=== PATIENT | male | born 1935 | race Caucasian/White ===

== ENCOUNTER 2019-06-28 23:00 | Outpatient (CLI) | payer MEDICARE, OTHER | END 2019-06-28 23:59 | disposition critical access hospital (66) | LOC: EMS 23:00 | PROVIDERS: ATTEND Surgery | DX: R06.02 Shortness of breath (principal); R07.89 Other chest pain | CPT/HCPCS: A0425; A0427 ==

== ENCOUNTER 2019-06-28 23:30 | Observation (INO) | payer MEDICARE, OTHER ==
[2019-06-29] MEDS ORDERED: ASPIRIN CHEW 81 MG TABLET PO STA
[2019-06-29 00:18] LABS: BASOPHILS # (AUTO) 0.1 10^3/uL (0.0-0.1); BASOPHILS % (AUTO) 1.2 %; EOSINOPHILS # (AUTO) 0.2 10^3/uL (0.0-0.7); EOSINOPHILS % (AUTO) 2.6 %; HGB - HEMOGLOBIN 11.7 g/dL (14.0-18.0); LYMPHOCYTES # (AUTO) 1.1 10^3/uL (1.5-3.5); LYMPHOCYTES % (AUTO) 14.4 %; MEAN CORPUSCULAR HEMOGLOBIN 30.2 pg (27.0-31.0); MEAN CORPUSCULAR VOLUME 94.3 fL (80.0-94.0); MEAN PLATELET VOLUME 10.6 fL (7.4-11.4); MONOCYTES # (AUTO) 0.7 10^3/uL (0.0-1.0); MONOCYTES % (AUTO) 8.6 %; NEUTROPHILS # (AUTO) 5.6 10^3/uL (1.5-6.6); NEUTROPHILS % (AUTO) 72.9 %; PLT - PLATELET COUNT 222 10^3/uL (130-450); RED BLOOD COUNT 3.88 10^6/uL (4.70-6.10); RED CELL DISTRIBUTION WIDTH 17.6 % (12.0-15.0); WHITE BLOOD COUNT 7.7 x10^3/uL (4.8-10.8)
[2019-06-29 00:24] LABS: INR 1.6 (0.8-1.2)
[2019-06-29 00:30] LABS: ALBUMIN 3.6 g/dL (3.2-5.5); BILIRUBIN,TOTAL 1.6 mg/dL (0.2-1.0); CALCIUM 9.4 mg/dL (8.5-10.3); CREATININE 1.1 mg/dL (0.6-1.2); TOTAL PROTEIN 7.3 g/dL (6.7-8.2)
[2019-06-29 00:31] LABS: PARTIAL THROMBOPLASTIN TIME 35.8 secs (24.9-33.3)
--- NOTE | 2019-06-29 00:43 | XRAY Report ---
Reason: Chest pain, SOA Procedure Date: 06/29/2019 Accession Number: [id number] / [id number] Procedure: XR - Chest 1 View X-Ray CPT Code: 61649 Final Report FULL RESULT: EXAM: CHEST RADIOGRAPHY EXAM DATE: 06/29/2019 12:35 AM. CLINICAL HISTORY: Chest pain, shortness of air. COMPARISON: None. TECHNIQUE: 1 view. FINDINGS: Lungs/Pleura: Diffuse mild interstitial opacities. No large effusion. No gross pneumothorax. Mediastinum: Mild cardiomegaly. No mediastinal shift. Other: Post median sternotomy. IMPRESSION: Mild CHF. RADIA
--- NOTE | 2019-06-29 01:59 | ED Physician Documentation ---
PD HPI CHEST PAIN - Stated complaint Stated Complaint: SOA/CP - Chief complaint Chief Complaint: Cardiac PD PAST MEDICAL HISTORY - Allergies Allergies/Adverse Reactions: Allergies Allergy/AdvReac Type Severity Reaction Status Date / Time clopidogrel [From Plavix] Allergy Rash Verified 06/28/19 23:49 sulfur dioxide Allergy Unknown Verified 06/28/19 23:49 Results - Vitals Vitals: Vital Signs - 24 hr 06/28/19 06/29/19 23:45 01:53 Temperature 36.8 C Heart Rate 89 88 Respiratory 18 25 H Rate Blood Pressure 152/89 H 120/75 O2 Saturation 98 96 Oxygen O2 Source Room air - Labs Labs: Laboratory Tests 06/28/19 06/28/19 06/29/19 00:10 00:10 00:10 WBC 7.7 RBC 3.88 L Hgb 11.7 L Hct 36.6 L MCV 94.3 H MCH 30.2 MCHC 32.0 RDW 17.6 H Plt Count 222 MPV 10.6 Neut # (Auto) 5.6 Lymph # (Auto) 1.1 L [place] # (Auto) 0.7 Eos # (Auto) 0.2 Baso # (Auto) 0.1 Absolute Nucleated RBC 0.00 Nucleated RBC % 0.0 PT INR APTT Sodium 138 Potassium 4.1 Chloride 109 Carbon Dioxide 20 L Anion Gap 9.0 BUN 22 H Creatinine 1.1 Estimated GFR (MDRD) 64 L Glucose 184 H POC Whole Bld Glucose Calcium 9.4 Total Bilirubin 1.6 H AST 24 ALT 17 Alkaline Phosphatase 68 Troponin I High Sens 49.8 H* B-Natriuretic Peptide Total Protein 7.3 Albumin 3.6 Globulin 3.7 Albumin/Globulin Ratio 1.0 Lipase 22 06/29/19 06/29/19 06/29/19 00:10 00:10 00:17 WBC RBC Hgb Hct MCV MCH MCHC RDW Plt Count MPV Neut # (Auto) Lymph # (Auto) [place] # (Auto) Eos # (Auto) Baso # (Auto) Absolute Nucleated RBC Nucleated RBC % PT 18.0 H INR 1.6 H APTT 35.8 H Sodium Potassium Chloride Carbon Dioxide Anion Gap BUN Creatinine Estimated GFR (MDRD) Glucose POC Whole Bld Glucose 171 H Calcium Total Bilirubin AST ALT Alkaline Phosphatase Troponin I High Sens B-Natriuretic Peptide 1142 H Total Protein Albumin Globulin Albumin/Globulin Ratio Lipase
[2019-06-29] MEDS ORDERED: FUROSEMIDE 40 MG/4 ML VIAL IVP STA (02:25)
[2019-06-29] MEDS ORDERED: ACETAMINOPHEN 325 MG TABLET PO PRN (02:28)
[2019-06-29] MEDS ORDERED: SODIUM CHLORIDE FLUSH 0.9% 10 ML SYRINGE IVP PRN (02:28)
--- NOTE | 2019-06-29 03:24 | HISTORY & PHYSICAL EXAMINATION ---
Chief Complaint - Chief Complaint Chief Complaint: Dyspnea and chest pain History of Present Illness - Admitted From Admitted From:: Home - History Obtained From Records Reviewed: Yes History obtained from: Patient, Son, ER Physician - History of Present Illness HPI Comment/Other: This is a very pleasant 83-year-old male with a past medical history significant for coronary artery disease status post CABG 1987, atrial fibrillation, hemorrhagic CVA in 2010, type 2 diabetes who presents today complaining of worsening shortness of breath and chest pain over the past 3 days. He reports that he has become more dyspneic with exertion and has not been able to be as active as he normally is. He reports a nonproductive cough but denies orthopnea. He does not notice worsening lower extremity edema and he states at baseline and his legs are not edematous. He denies increased salt intake or change in diet. He did have some chest pain over the last few days as well. It is located over the right side of the chest. He states it is worse with exer tion as well as taking deep inspirations. The pain is about 4 out of 10 and is sharp in nature. It is nonradiating. The patient cannot recall if he has been told he had heart failure in the past or not. He does have a coal shooter and Luh with the [facility] system. He is in the process of moving to [place] over the next couple of days. He has followed with his coal shooter, Dr. Ritchie, but he does not recall any work-up recently including stress tests or echocardiograms. Reports no fevers, chills, nausea, vomiting, abdominal pain. In the emergency department, he was afebrile with a temperature of 36.8 C. His heart rate was 89 and he was in atrial fibrillation with occasional PVCs on telemetry. He was initially hypertensive with a blood pressure 152/89 but this has improved to 113/73 upon my evaluation. He is not tachypneic with a respiratory of 16. He is saturating 96% on room air. Initial labs were unremarkable except for an INR of 1.6 despite him not being on any anticoagulation. His initial troponin was 49.8 and his BNP was 1142. His EKG revealed atrial fibrillation with a right bundle branch block and occasional PVCs. There are no obvious ST segment changes and there is no prior EKG to compare to. He was given aspirin 325 mg and Lasix 40 mg IV In the emergency department. Medicine was then consulted for admission. I did discuss goals of care with the patient and his son, Howie. The patient would like to be DNR but is agreeable to intubation as a temporary measure. History - Past Medical History Cardiovascular: reports: Coronary artery disease, Atrial fibrillation Respiratory: reports: None Neuro: reports: CVA (Hemorrhagic in 2011) Endocrine/Autoimmune: reports: Type 2 diabetes : reports: Benign prostate hypertrophy - Past Surgical History Cardiovascular: reports: CABG - Family & Social History Family History Comment/Other: He reports his father from a myocardial infarction. Living arrangement: At home Living Situation: With spouse/s.o. Social History Notes: He lives in [place], [place] at the moment was in the process of moving to [place], [place]. He was previously employed in the [employer]. He did smoke about a pack a day for 10 years but quit in the 60s. He has not drank alcohol since the 70s. - Substance History Use: Uses substance without health or social issues: NONE Meds/Allgy - Home Medications Home Medications: Ambulatory Orders Medication Instructions Recorded Confirmed Aspirin Chewable [St Donaldo 81 mg PO DAILY 06/29/19 06/29/19 Aspirin] Atorvastatin Calcium [Lipitor] 80 mg PO DAILY 06/29/19 06/29/19 Carvedilol Phosphate [Coreg Cr] 40 mg PO DAILY 06/29/19 06/29/19 Furosemide 20 mg PO DAILY 06/29/19 06/29/19 Glimepiride [Amaryl] 1 mg PO BID 06/29/19 06/29/19 Isosorbide Mononitrate ER [Imdur] 30 mg PO DAILY 06/29/19 06/29/19 Losartan Potassium 25 mg PO DAILY 06/29/19 06/29/19 Ranolazine [Ranexa] 500 mg PO BID 06/29/19 06/29/19 Tamsulosin [Flomax] 0.4 mg PO DAILY 06/29/19 06/29/19 - Allergies Allergies/Adverse Reactions: Allergies Allergy/AdvReac Type Severity Reaction Status Date / Time clopidogrel [From Plavix] Allergy Rash Verified 06/28/19 23:49 sulfur dioxide Allergy Unknown Verified 06/28/19 23:49 Review of Systems - Constitutional Constitutional: denies: Fatigue, Fever, Chills, Weakness, Poor appetite - Cardiovascular Cariovascular: reports: Chest pain, Exertional dyspnea, Decr. exercise tolerance. denies: Palpitations, Edema, Lightheadedness - Respiratory Respiratory: reports: Cough, SOB with exertion, Pleuritic pain. denies: Sputum production, SOB at rest - Gastrointestinal Gastrointestinal: denies: Abdominal pain, Nausea, Vomiting - Genitourinary Genitourinary: denies: Dysuria, Frequency, Urgency - Musculoskeletal Musculoskeletal: denies: Muscle pain - Integumentary Integumentary: denies: Rash - Neurological Neurological: denies: General weakness, Focal weakness, Numbness - All Other Systems All Other Systems: reports: Reviewed and negative Prior Level of Functionality: He is independent with his ADLs. He ambulates with a cane at baseline. Exam - Vital Signs Reviewed Vital Signs: Yes Vital Signs: Vital Signs x48h Temp Pulse Resp BP Pulse Ox 06/29/19 03:04 99 16 113/73 96 06/29/19 01:53 88 25 H 120/75 96 06/28/19 23:45 36.8 C 89 18 152/89 H 98 - Physical Exam General Appearance: positive: No acute distress, Alert Eyes Bilateral: positive: Normal inspection, Conjunctivae nml ENT: positive: ENT inspection nml Neck: positive: Nml inspection Respiratory: positive: No respiratory distress, Other (He is not tachypneic and is now able to speak in full sentences.). negative: Chest non-tender (Mild tenderness to palpation over the right chest arund T4. No left sided chest tenderness.), Wheezes, Rales, Rhonchi Cardiovascular: positive: No murmur, Irregularly irregular. negative: Tachycardia, Bradycardia, Systolic murmur, Diastolic murmur Abdomen: positive: Non-tender. negative: Tenderness, Guarding, Rebound Skin: positive: No rash, Warm, Dry Extremities: positive: Full ROM, Pedal edema (He has trace pitting edema in the left lower extremity. There is a scar over the medial aspect of the left lower extremity above the ankle to above the knee. This is not from a vein graft but the patient reports a prior accident where his lower extremities were crushed. No edema in the right lower extremity.) Neurologic/Psychiatric: positive: Oriented x3, Other (No focal motor deficits on exam.). negative: Disoriented to person, Disoriented to place, Disoriented to time Conclusion/Plan - Problem List (1) Acute on chronic congestive heart failure Conclusion/Plan: Presents with worsening dyspnea on exertion with an elevated BNP and findings of fluid overload on chest x-ray. He was initially speaking in 2-3 word sentences but this has improved after receiving IV Lasix. It is not clear if he is a history of diastolic or systolic heart failure as records are not available at the moment. We will place him on Lasix 40 mg IV daily and obtain an echocardiogram in the morning. Will resume his home cardiac medications. We will continue to trend his troponin and monitor him on telemetry. We will recheck BNP prior to discharge. Will attempt to obtain his records from his coal shooter, Dr. Ritchie at [facility] in [place]. We will also obtain Dopplers of his left lower extremity given he does have more prominent edema in that extremity. Qualifiers: Heart failure type: unspecified Qualified Code(s): I50.9 - Heart failure, unspecified (2) Chest pain Conclusion/Plan: His chest pain appears to be atypical for angina but given his history of coronary artery disease and elevated troponin, I will need to be monitored. His EKG does not show any obvious ST segment changes although there is no prior EKG to compare to at the moment. His initial troponin was 49.8 and this increased to 56.6 after couple of hours which suggest this is relatively flat and likely demand ischemia from the heart failure rather than ACS. He did receive aspirin 305 mg in the emergency department. We will resume his baby aspirin 81 mg daily as well as Lipitor 80 mg. We will also resume his Ranexa. (3) Elevated troponin Conclusion/Plan: His troponin is elevated at 49.8 but repeat a couple hours later was 56.6. All he does have chest pain, suspect that elevated troponin is likely demand ischemia in the setting of heart failure. His EKG did not show any obvious ST segment changes. We will continue to trend his troponin and monitor him on telemetry. (4) Elevated INR Conclusion/Plan: His INR is elevated at 1.6 despite not being on any anticoagulation at home. His LFTs are normal except for total bilirubin of 1.6. He reports no alcohol use for nearly 50 years. There are no signs of bleeding at the moment. We will repeat an INR in the morning. (5) History of hemorrhagic cerebrovascular accident (CVA) without residual deficits Conclusion/Plan: History of hemorrhagic CVA in 2010 without any residual deficits. He was hospitalized at [facility] for nearly 3 months. He was on Pradaxa at that time. He now ambulates with a cane at baseline. We will continue his home aspirin and Lipitor. (6) Type 2 diabetes mellitus Conclusion/Plan: He is on Amaryl at home. He is hyperglycemic with a blood glucose of 171. We will place him on sliding scale and check a hemoglobin A1c. (7) BPH (benign prostatic hyperplasia) Conclusion/Plan: Stable. He is on Flomax at home. He is agreeable to trying IV diuresis without a catheter in place at the moment. We discussed that if he began to urinate too frequently and this provided an inconvenience to him, then we can place a catheter. Resume his home Flomax. - Lab Results Lab results reviewed: Yes Fish Bones: 06/28/19 00:10 06/28/19 00:10 - Diagnostic Imaging Results Diagnostic Imaging Results: positive: Final report reviewed - EKG Results EKG Interpreted Independently: Yes EKG Comparison: No prior EKG EKG Findings: His EKG reveals atrial fibrillation with a heart rate in the 80s. There is a right bundle branch block. No obvious ST segment changes. There are occasional PVCs. Core Measures - Anticipated LOS I expect patient to be DC'd or transferred within 96 hours.: Yes - Issues Hospital Issues and Management Plan: This is a 83-year-old male with history of coronary artery disease admitted for acute on chronic heart failure with an elevated troponin. We will dose him with IV Lasix and obtain echocardiogram. He will be placed in observation. - DVT/VTE - Prophylaxis VTE/DVT Device ordered at admit?: Yes VTE/DVT Prophylaxis med ordered at admit?: Yes
[2019-06-29 05:42] LABS: HGB - HEMOGLOBIN 11.4 g/dL (14.0-18.0); MEAN CORPUSCULAR HEMOGLOBIN 29.8 pg (27.0-31.0); MEAN CORPUSCULAR HGB CONC 32.1 g/dL (32.0-36.0); MEAN CORPUSCULAR VOLUME 92.9 fL (80.0-94.0); MEAN PLATELET VOLUME 10.6 fL (7.4-11.4); RED BLOOD COUNT 3.82 10^6/uL (4.70-6.10); RED CELL DISTRIBUTION WIDTH 17.3 % (12.0-15.0); WHITE BLOOD COUNT 7.5 x10^3/uL (4.8-10.8)
[2019-06-29 05:47] LABS: INR 1.6 (0.8-1.2); PT - PROTHROMBIN TIME 17.9 secs (9.9-12.6)
[2019-06-29 05:52] LABS: CALCIUM 9.4 mg/dL (8.5-10.3); CREATININE 1.2 mg/dL (0.6-1.2); MAGNESIUM 1.9 mg/dL (1.7-2.8); PHOSPHORUS 2.8 mg/dL (2.5-4.6)
[2019-06-29 06:09] LABS: HB2 TOTAL 11.5 g/dL; HEMOGLOBIN A1C 0.79 g/dL; HEMOGLOBIN A1C % 8.4 % (4.6-6.2)
[2019-06-29] MEDS ORDERED: carvediloL 12.5 MG TABLET PO SCH (08:00)
[2019-06-29] MEDS: INSULIN ASPART 300 UNIT/3 ML PEN SUBQ SCH ×3 (08:25→16:44)
--- NOTE | 2019-06-29 08:57 | PHARMACY PROGRESS NOTE ---
- Best Possible Medication History Admit Date and Time: 06/29/19 0228 Processed by: Nursing (sixto Tinoco) Medication History completed: Yes As the person ultimately responsible for medication therapy, providers are able to order a medication from an existing home medication list in [facility] via the "Reconcile Routine" prior to Confirmation of that medication by support architect. Such practice is discouraged except when the physician, in their clinical judgment, deems that a medical need exists for a medication without regard to previous use.
[2019-06-29] MEDS ORDERED: HEPARIN 5,000 UNIT/ML VIAL SUBQ SCH (09:00)
[2019-06-29] MEDS ORDERED: FUROSEMIDE 40 MG/4 ML VIAL IVP SCH (09:00)
[2019-06-29] MEDS ORDERED: SODIUM CHLORIDE FLUSH 0.9% 10 ML SYRINGE IVP SCH (09:00)
[2019-06-29] MEDS ORDERED: RANOLAZINE 500 MG TABLET PO SCH (09:00)
[2019-06-29] MEDS ORDERED: TAMSULOSIN 0.4 MG CAPSULE PO SCH (09:00)
[2019-06-29] MEDS ORDERED: LOSARTAN 50 MG TABLET PO SCH (09:00)
[2019-06-29] MEDS ORDERED: ASPIRIN EC 81 MG TABLET PO SCH (09:00)
--- NOTE | 2019-06-29 09:08 | Ultrasound Report ---
Reason: Left lower extremity edema. Eval for DVT. Procedure Date: 06/29/2019 Accession Number: [id number] / [id number] Procedure: US - Duplex Ext Veins Left CPT Code: Final Report FULL RESULT: EXAM: LEFT LOWER EXTREMITY VENOUS ULTRASOUND EXAM DATE: 06/29/2019 08:15 AM. CLINICAL HISTORY: Left lower extremity edema. Eval for DVT. COMPARISON: None. TECHNIQUE: Real-time sonographic vascular imaging was performed by the vegetable sorter through the lower extremity utilizing both color-flow and Doppler spectral analysis. Multiple construction sales representative static images were saved for review. FINDINGS: Common Femoral Vein (CFV): Normal. CFV-GSV Junction: Normal. Profunda Femoral Vein (PFV): Normal. Femoral Vein (FV) Prox: Normal. Femoral Vein (FV) Mid: Normal. Femoral Vein (FV) Dist: Normal. Popliteal Vein: Normal. Posterior Tibial Veins: Normal. Peroneal Veins: Normal. Other: None. IMPRESSION: No evidence for deep venous thrombosis. RADIA
[2019-06-29] MEDS ORDERED: CARVEDILOL PHOSPHATE 40 MG PO SCH (11:30)
[2019-06-29] MEDS ORDERED: ATORVASTATIN CALCIUM 80 MG PO SCH (11:30)
[2019-06-29] MEDS ORDERED: RANOLAZINE 500 MG PO SCH (11:30)
[2019-06-29] MEDS ORDERED: NON FORMULARY MED (Losartan Potassium [Losartan Potassium] 25 MG) PO SCH (11:30)
[2019-06-29] MEDS ORDERED: ASPIRIN CHEW 81 MG TABLET PO SCH (12:00)
[2019-06-29] MEDS ORDERED: ISOSORBIDE MONONITRATE ER 30 MG TABLET PO SCH (12:00)
--- NOTE | 2019-06-29 16:27 | Discharge Plan ---
Discharge Plan Problem Reviewed?: Yes Disposition: Home, Self Care Condition: Stable Prescriptions: Furosemide [Lasix] 40 mg PO DAILY #9 tablet Potassium Chloride 10 meq PO DAILY #10 capsule.er Diet: Low Sodium (diabetic) Activity Restrictions: Activity as Tolerated Shower Restrictions: No Driving Restrictions: No Health Concerns: You presented to our hospital because you were increasingly short of breath, it was harder to climb stairs, and you were having chest tightness. This is in context of having atrial fibrillation, and a history of coronary artery disease. We found you to be in acute congestive heart failure and you were fluid overloaded. After talking to you and your son, you are compliant with your medications. The only new thing in your life was the move. You have been eating out more often especially [employer] and taco time. Plan of Treatment: 1. You received intravenous diuretics. We gave you your furosemide in your vein and that made you urinate quite a bit of an amount. 2. We did a ultrasound of your leg to make sure you were to have any blood clots that were traveling from your legs to your lungs to make you short of breath. Those were negative. 3. We repeated your echocardiogram which is an ultrasound of your heart. In checking the pump function of your heart, your ejection fraction is 30 to 35%. Your son says that is about the same as you have always been.4. You will need to go home on increased Lasix. We would like you to take 2 tablets in the morning and 1 at lunch. I have called in an extra prescription to [facility] in [place]. He will take them until July 02. I have also called in a potassium pill daily. Care Goals: 1. To be able to resume your usual endurance and not be short of breath. 2. You will need to establish yourself with a new lounge car attendant. I recommend [facility]. They have a lounge car attendant that comes ambulatory clinic here in the hospital. Their phone number is [phone]. Please make an appointment and see them and transfer your care from the [facility] to the [facility] so that it is easier for you to follow- up on your health care. 3. Avoid salt in your diet. Try and eat no more than 2000 mg of salt a day. Assessment: Patient has mild hearing problems. These instructions were shared with his son and they will follow through. No Smoking: If you smoke, Please STOP! Call for help. Follow-up with: Provider,Other [Primary Care Provider] - Lali Barrow MD [Provider Admit Priv/Credential] -
[2019-06-29 16:55] VITALS: BP 111/62
[2019-06-29] MEDS ORDERED: GLIMEPIRIDE 2 MG TABLET PO SCH (17:00)
[2019-06-29] MEDS ORDERED: ATORVASTATIN 40 MG TABLET PO SCH (21:00)
[2019-06-30] MEDS ORDERED: TAMSULOSIN 0.4 MG CAPSULE PO SCH (09:00)
--- NOTE | 2019-06-30 09:32 | ED Physician Documentation ---
PD HPI DYSPNEA - Stated complaint Stated Complaint: SOA/CP - Chief complaint Chief Complaint: Cardiac - History obtained from History obtained from: Patient, Family - History of Present Illness Timing - onset: How many days ago (2-3) Timing - duration: Days Timing - details: Gradual onset, Intermittant, Waxing and waning, Still present in ED Pain level now: 0 Improved by: Rest Worsened by: Exertion Associated symptoms: Chest pain / discomfort. No: Fever, Cough, Wheezing Similar symptoms before: Has not had sx before Recently seen: Not recently seen - Additional information Additional information: staying with family on [facility], as he is selling his house in [place]. c/o increasing dyspnea with exertion x 2 days, particularly when walking up sta irs. tonight he again became dyspneic when he ascended the stairs and this persisted even after resting in bed. he needed assistance getting out of bed due to dyspnea and this is when his son decided patient needed ED evaluation. Review of Systems Constitutional: reports: Reviewed and negative Eyes: reports: Reviewed and negative Ears: reports: Reviewed and negative Nose: reports: Reviewed and negative Throat: reports: Reviewed and negative Cardiac: reports: Chest pain / pressure (mild right-sided chest pain earlier tonight, resolved) Respiratory: reports: Dyspnea. denies: Cough, Wheezing GI: reports: Reviewed and negative : denies: Dysuria, Frequency Musculoskeletal: denies: Extremity swelling PD PAST MEDICAL HISTORY - Past Medical History Cardiovascular: Coronary artery disease, Atrial fibrillation Respiratory: None Neuro: CVA (Hemorrhagic in 2010) Endocrine/Autoimmune: Type 2 diabetes GI: Hiatal hernia : Benign prostate hypertrophy Psych: None Musculoskeletal: None Derm: None Other Past Medical History: major brain bleed 7 yrs ago - Past Surgical History General: Hiatal hernia repair Cardiovascular: CABG Neuro: Craniotomy - Present Medications Home Medications: Ambulatory Orders Medication Instructions Recorded Confirmed Aspirin Chewable [St Donaldo 81 mg PO DAILY 06/29/19 06/29/19 Aspirin] Atorvastatin Calcium [Lipitor] 80 mg PO DAILY 06/29/19 06/29/19 Carvedilol Phosphate [Coreg Cr] 40 mg PO DAILY 06/29/19 06/29/19 Furosemide 20 mg PO DAILY 06/29/19 06/29/19 Furosemide [Lasix] 40 mg PO DAILY #9 tablet 06/29/19 Glimepiride [Amaryl] 1 mg PO BID 06/29/19 06/29/19 Isosorbide Mononitrate ER [Imdur] 30 mg PO DAILY 06/29/19 06/29/19 Losartan Potassium 25 mg PO DAILY 06/29/19 06/29/19 Potassium Chloride 10 meq PO DAILY #10 capsule.er 06/29/19 Ranolazine [Ranexa] 500 mg PO BID 06/29/19 06/29/19 Tamsulosin [Flomax] 0.4 mg PO DAILY 06/29/19 06/29/19 - Allergies Allergies/Adverse Reactions: Allergies Allergy/AdvReac Type Severity Reaction Status Date / Time clopidogrel [From Plavix] Allergy Rash Verified 06/28/19 23:49 sulfur dioxide Allergy Unknown Verified 06/28/19 23:49 - Social History Smoking Status: Former smoker PD ED PE NORMAL - Vitals Vital signs reviewed: Yes - General General: Alert and oriented X 3, Well developed/nourished, Other (speaking 2-3 words at a time, parsed sentences) - HEENT HEENT: Moist mucous membranes - Neck Neck: Supple, no meningeal sign, No JVD - Cardiac Cardiac: No murmur - Abdomen Abdomen: Soft, Non tender - Derm Derm: Normal color, Warm and dry - Extremities Extremities: Other (trace LLE edema) - Neuro Neuro: Alert and oriented X 3 PD ED PE EXPANDED - Cardiac Cardiac: Tachy, Irregularly irregular - Respiratory Respiratory: Rales (trace bibasilar) Results - Vitals Vitals: Oxygen O2 Source Room air - EKG (time done) No standard instances Rate: Rate (enter#) (89) Rhythm: Atrial fibrillation [place]: LAD, Anterior hemiblock Ischemia: Non specific changes (V2, V3) Other comments: Other comments (PVCs) - Labs Labs: Laboratory Tests 06/28/19 06/28/19 06/29/19 00:10 00:10 00:10 WBC 7.7 RBC 3.88 L Hgb 11.7 L Hct 36.6 L MCV 94.3 H MCH 30.2 MCHC 32.0 RDW 17.6 H Plt Count 222 MPV 10.6 Neut # (Auto) 5.6 Lymph # (Auto) 1.1 L [place] # (Auto) 0.7 Eos # (Auto) 0.2 Baso # (Auto) 0.1 Absolute Nucleated RBC 0.00 Nucleated RBC % 0.0 PT INR APTT Sodium 138 Potassium 4.1 Chloride 109 Carbon Dioxide 20 L Anion Gap 9.0 BUN 22 H Creatinine 1.1 Estimated GFR (MDRD) 64 L Glucose 184 H POC Whole Bld Glucose Calcium 9.4 Total Bilirubin 1.6 H AST 24 ALT 17 Alkaline Phosphatase 68 Troponin I High Sens 49.8 H* B-Natriuretic Peptide Total Protein 7.3 Albumin 3.6 Globulin 3.7 Albumin/Globulin Ratio 1.0 Lipase 22 06/29/19 06/29/19 06/29/19 00:10 00:10 00:17 WBC RBC Hgb Hct MCV MCH MCHC RDW Plt Count MPV Neut # (Auto) Lymph # (Auto) [place] # (Auto) Eos # (Auto) Baso # (Auto) Absolute Nucleated RBC Nucleated RBC % PT 18.0 H INR 1.6 H APTT 35.8 H Sodium Potassium Chloride Carbon Dioxide Anion Gap BUN Creatinine Estimated GFR (MDRD) Glucose POC Whole Bld Glucose 171 H Calcium Total Bilirubin AST ALT Alkaline Phosphatase Troponin I High Sens B-Natriuretic Peptide 1142 H Total Protein Albumin Globulin Albumin/Globulin Ratio Lipase - Rads (name of study) chest xray Radiology: Prelim report reviewed, See rad report PD MEDICAL DECISION MAKING - ED course Complexity details: reviewed results, re-evaluated patient, considered differential, d/w patient, d/w family Departure - Departure Disposition: ED Place in Observation Clinical Impression: Congestive heart failure Qualifiers: Heart failure type: unspecified Heart failure chronicity: unspecified Qualified Code(s): I50.9 - Heart failure, unspecified Condition: Stable Discharge Date/Time: 06/29/19 03:59
--- NOTE | 2019-07-03 18:42 | DISCHARGE SUMMARY ---
Physician: Domenica Ramirez MD DATE OF ADMISSION: 06/29/2019 DATE OF DISCHARGE: 06/29/2019 DISCHARGE DIAGNOSES 1. Uoylw-ay-lgqzdzb systolic congestive heart failure. 2. Atypical chest pain. 3. Elevated troponin. 4. Elevated INR. 5. 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 6. Type 2 diabetes mellitus, without complications, not on long-term insulin. 7. Benign prostatic hypertrophy. PRINCIPAL PROCEDURES 1. Chest x-ray showing mild congestive heart failure changes. 2. Venous duplex Doppler studies of the legs showed no pulmonary embolism. 3. Echocardiogram has overall left ventricular systolic function moderately to severely impaired with an ejection fraction of 30-35%. Mild mitral regurgitation. Mildly abnormal right heart pressures. Son states that those are about the same numbers his dad usually. DISCHARGE MEDICATIONS 1. Aspirin 81 mg daily. 2. Lipitor 80 mg daily. 3. Carvedilol 40 mg daily. 4. Lasix 20 mg b.i.d. 5. Glimepiride 1 mg b.i.d. 6. Imdur 30 mg daily. 7. Losartan 25 mg daily. 8. Ranexa 500 mg b.i.d. 9. Flomax 0.4 daily. 10. He is to take Lasix for the next few days of 40 mg in the morning and 20 mg in the afternoon for 3 days. 11. Potassium 10 mEq daily for 3 days. HOSPITAL COURSE: He is an elderly gentleman who has history of heart failure due to coronary artery disease. He just moved from the [facility] to the [facility]. For the last couple of months, his house has been slowly packed on the [facility], and he has been eating out more and more. He and his son share with me that he has been eating out at his favorite [place] food places, which is [employer] and [employer]. Otherwise, he has been compliant with his medications. He does not remember to take him, but his a fierce advocate for him. Son states that mom remembers everything, and he knows that she is giving dad his medications regularly. He has been having more and more shortness of breath and dyspnea on exertion over the last 3 days. Not able to do his usual activities. Son states that dad can easily climb 2-3 flights of stairs to go upstairs in his home and he is barely able to make it one flight of stairs in the last day. He has a nonproductive cough. Denies orthopnea. No increasing leg edema. He does have some chest pain over the right side of his chest, worse with exertion, as well as deep inspirations. It is sharp. Nonradiating. He was afebrile, hypertensive at 152/89. Not tachypneic, 96% on room air. EKG has atrial fibrillation with a right bundle branch block. That is chronic for him. He did not have any rales. He did not have JVD. He was irregularly irregular. Trace pedal edema was present.He does have an elevated INR even though he is not on anticoagulation. This may be due to passive liver congestion. The patient denies any alcohol overuse.His elevated troponin was due to enzyme leak and not felt to ischemia. He was treated as kvvev-[id number] systolic congestive heart failure with IV diuresis. He responded very briskly over the next few hours and the next morning felt like he was back to normal. He does have elements of prostatism with decreased stream and increased urgency when he has to urinate.We think that he has been indiscrete with his diet, as he describes the [employer] and the [employer] intake. I have increased his diuretics only temporarily for the next few days, and then he is going to go back on his usual dose. I have also given a potassium to make sure he stays supplemented. The echocardiogram results and venous Doppler results were shared with the patient and his son.During his stay glucose was controlled in the 120s to 140s. However A1c is 8.4%. BNP at discharge is 1064 however on admission it was 1142. Because he is moving to the [place], he will need to establish himself with a new building architectural designer. He says that he cannot go back to the [facility] where he used to live. It is too far. As such, I have recommended he go to the [facility] initially in [place], then switch over to see Dr. Barrow or Dr. Sibley here at the medical ambulatory clinic. I have also instructed him not to eat more than 2000 mg salt a day. He is discharged in stable condition. PHYSICAL EXAMINATION VITAL SIGNS: Temperature is 36.5. Pulse is 82 and irregular, blood pressure 111/62, respirations 22, and he is 94% on room air. 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 NECK: No JVD. LUNGS: Clear. No increased respiratory effort. The entire time I am speaking to him at discharge, he is getting out of bed, getting dressed, putting on his clothes without any assistance, other than he needs help to button the jeans. He stands getting dressed without any ataxia. EXTREMITIES: Ankles have trace edema. He is discharged in stable condition with the above instructions. TD: 07/03/2019 17:34 MTDD
== END 2019-06-29 16:55 | disposition home or self-care (01) ==
LOC: ED 23:30 → MS2 06-29 02:28
PROVIDERS: ADMIT Internal Medicine; ATTEND Specialist
DX: I50.23 Acute on chronic systolic (congestive) heart failure (principal); R07.89 Other chest pain; R79.89 Other specified abnormal findings of blood chemistry; R79.1 Abnormal coagulation profile; E11.65 Type 2 diabetes mellitus with hyperglycemia; I34.0 Nonrheumatic mitral (valve) insufficiency; I25.10 Atherosclerotic heart disease of native coronary artery without angina pectoris; I48.91 Unspecified atrial fibrillation; I45.10 Unspecified right bundle-branch block; Z86.73 Personal history of transient ischemic attack (TIA), and cerebral infarction without residual deficits; N40.1 Benign prostatic hyperplasia with lower urinary tract symptoms; R39.15 Urgency of urination; R39.12 Poor urinary stream; H91.90 Unspecified hearing loss, unspecified ear; Z79.82 Long term (current) use of aspirin; Z95.1 Presence of aortocoronary bypass graft; Z87.891 Personal history of nicotine dependence; Z79.899 Other long term (current) drug therapy
CPT/HCPCS: 36415; 71045; 80048; 80053; 83036; 83690; 83735; 83880; 84100; 84484; 85025; 85027; 85610; 85730; 93005; 93306; 93971; 96374; 96376; 99284; 99285; A9270; G0378

== ENCOUNTER 2019-09-08 11:52 | Outpatient (CLI) | payer MEDICARE, OTHER ==
[2019-09-08 12:53] LABS: ALBUMIN 3.7 g/dL (3.2-5.5); CALCIUM 9.4 mg/dL (8.5-10.3); CREATININE 1.5 mg/dL (0.6-1.2)
== END 2019-09-08 11:53 | disposition home or self-care (01) ==
LOC: LAB 11:52
PROVIDERS: ATTEND Internal Medicine Cardiovascular Disease
DX: I10 Essential (primary) hypertension (principal); R06.02 Shortness of breath; E78.49 Other hyperlipidemia; I25.10 Atherosclerotic heart disease of native coronary artery without angina pectoris; I48.21 Permanent atrial fibrillation; Z95.818 Presence of other cardiac implants and grafts
CPT/HCPCS: 36415; 80069

== ENCOUNTER 2020-03-25 08:51 | Outpatient (CLI) | payer MEDICARE, OTHER ==
[2020-03-25 09:43] LABS: ALBUMIN 3.7 g/dL (3.2-5.5); ALBUMIN/GLOBULIN RATIO 0.8 (1.0-2.2); ALKALINE PHOSPHATASE 560 IU/L (42-121); ALT ALANINE AMINOTRANSFERASE 73 IU/L (10-60); AST ASPARTATE AMINOTRANSFERASE 73 IU/L (10-42); BILIRUBIN,TOTAL 2.7 mg/dL (0.2-1.0); BUN - BLOOD UREA NITROGEN 29 mg/dL (6-20); CALCIUM 9.7 mg/dL (8.5-10.3); CARBON DIOXIDE - CO2 22 mmol/L (21-32); CHLORIDE 101 mmol/L (101-111); CHOL/HDL RATIO 6.9 (<5.0); CHOLESTEROL 263 mg/dL; CREATININE 1.4 mg/dL (0.6-1.2); GLUCOSE 353 mg/dL (70-100); HDL CHOLESTEROL 38 mg/dL; LDL CHOLESTEROL,CALCULATED 192 mg/dL; LDL/HDL RATIO 5.1 (<3.6); SODIUM 135 mmol/L (135-145); TOTAL PROTEIN 8.6 g/dL (6.7-8.2); VLDL CHOLESTEROL 33 mg/dL
[2020-03-25 11:56] LABS: HEMOGLOBIN A1c% 10.1 % (4.27-6.07)
== END 2020-03-25 08:52 | disposition home or self-care (01) ==
LOC: LAB 08:51
PROVIDERS: ATTEND Family Medicine
DX: Z00.00 Encounter for general adult medical examination without abnormal findings (principal); E11.22 Type 2 diabetes mellitus with diabetic chronic kidney disease; N18.30 Chronic kidney disease, stage 3 unspecified
CPT/HCPCS: 36415; 80053; 80061; 83036; 83721; 84153

== ENCOUNTER 2020-05-06 15:41 | Emergency (ER) | payer MEDICARE, OTHER ==
--- NOTE | 2020-05-06 16:55 | CT Report ---
PROCEDURE: HEAD WO INDICATIONS: Fall TECHNIQUE: Noncontrast 4.5 mm thick angled axial sections acquired from the foramen magnum to the vertex. For r adiation dose reduction, the following was used: automated exposure control, adjustment of mA and/or kV according to patient size. COMPARISON: None FINDINGS: Image quality: Excellent. CSF spaces: Basal cisterns are patent. No extra-axial fluid collections. The ventricles are symmet rhina in size and shape. Brain: No intracranial bleeds or masses. There is cerebral volume loss for age, with resultant vent ricular and sulcal prominence. There are periventricular and deep white matter chronic small vessel ischemic changes. Chronic right temporal-occipital infarct. There is intracranial internal carotid a rtery atherosclerosis. Skull and face: Calvarium and visualized facial bones appear intact, without suspicious lesions. Lar ge left frontal scalp/left periorbital facial hematoma. Sinuses: Visualized sinuses and mastoids are clear. IMPRESSION: No acute intracranial disease process. Reviewed by: Humera Hsu MD, PhD on 05/06/2020 4:54 PM PST Approved by: Humera Hsu MD, PhD on 05/06/2020 4:54 PM PST Station ID: [id number]
--- NOTE | 2020-05-06 16:58 | CT Report ---
PROCEDURE: MAXILLOFACIAL WO INDICATIONS: Fall TECHNIQUE: Noncontrast 1.5 mm thick axial images acquired from the mandible through the frontal sinuses, with co hiral and sagittal reformatting. For radiation dose reduction, the following was used: automated ex posure control, adjustment of mA and/or kV according to patient size. COMPARISON: None. FINDINGS: Image quality: Excellent. Bones and teeth: Orbital green are intact. Sinus green show no fracture or deformity. Nasal bones and septum are intact. Visualized portions of the mandible demonstrate no fractures or subluxation. Zygomatic arches are intact. Pterygoid plates are intact. Visualized portions of the skull base an d auditory canals are intact. Sinuses: Mild mucosal thickening noted in the left maxillary sinus. Mastoid air cells are aerated. Soft tissues: Large left periorbital facial soft tissue tissue/left frontal scalp hematoma. No enlarg ed lymph nodes. No soft tissue lacerations or debris. Vascular: Visualized vascular structures appear normal in the absence of contrast. Bony vascular fo ramina and canals are intact. IMPRESSION: No fracture. Reviewed by: Humera Hsu MD, PhD on 05/06/2020 4:56 PM PST Approved by: Humera Hsu MD, PhD on 05/06/2020 4:56 PM PST Station ID: [id number]
--- NOTE | 2020-05-06 21:36 | ED Physician Documentation ---
ED Addendum - Addendum Addendum: 05/06/20 21:35 see downtime chart Departure - Departure Disposition: 01 Home, Self Care Condition: Stable Discharge Date/Time: 05/06/20 17:46
== END 2020-05-06 17:46 | disposition home or self-care (01) ==
LOC: ED 15:41
DX: S05.12XA Contusion of eyeball and orbital tissues, left eye, initial encounter (principal); S80.212A Abrasion, left knee, initial encounter; W18.30XA Fall on same level, unspecified, initial encounter; Y92.89 Other specified places as the place of occurrence of the external cause; E11.9 Type 2 diabetes mellitus without complications; Z79.84 Long term (current) use of oral hypoglycemic drugs; Z95.1 Presence of aortocoronary bypass graft
CPT/HCPCS: 70450; 70486; 99282; 99284

== ENCOUNTER 2021-04-01 09:35 | Emergency (ER) | payer MEDICARE, OTHER ==
[2021-04-01] MEDS ORDERED: KETOROLAC 60 MG/2 ML VIAL IM STA (11:26)
--- NOTE | 2021-04-01 11:26 | ED Physician Documentation ---
PD HPI Fall - Stated complaint Stated Complaint: RT RIB PX - Chief complaint Chief Complaint: Trauma Ch/Bk - History obtained from History obtained from: Patient - History of Present Illness Mechanism of injury: Lost balance Fall distance: Standing position Where injury occurred: Home Timing - onset: Yesterday Injury(ies) location: Chest Quality of pain: Pain Associated symptoms: No: LOC, AMS, Amnesia, Seizures, Ear drainage, Nasal drainage, Neck pain, Weakness, Paresthesias, Dyspnea, Nausea / vomiting, Hematemesis, Abdominal distension Symptoms improve with: Rest Worsens with: Movement, Palpation Contributing factors: No: Anticoagulated Similar symptoms before: Has not had sx before Recently seen: Not recently seen - Additional information Additional information: Previously well 85-year-old male went to get up out of his wheelchair and fell forward landing on the left lateral chest wall. He had this fall yesterday and he is complaining of pain with inspiration and movement to the left posterior chest wall.The patient has not otherwise been ill. Review of Systems Constitutional: denies: Fever Eyes: denies: Decreased vision Throat: denies: Sore throat Respiratory: denies: Cough GI: denies: Vomiting PD PAST MEDICAL HISTORY - Past Medical History Past Medical History: Yes Cardiovascular: Hypertension, High cholesterol, Coronary artery disease, Atrial fibrillation Respiratory: None Neuro: CVA Endocrine/Autoimmune: Type 2 diabetes GI: Hiatal hernia : Benign prostate hypertrophy HEENT: Glaucoma Psych: None Musculoskeletal: None Derm: None - Past Surgical History Past Surgical History: Yes General: Hiatal hernia repair Cardiovascular: CABG, Pacemaker, AICD Neuro: Craniotomy - Present Medications Home Medications: Ambulatory Orders Medication Instructions Recorded Confirmed Aspirin Chewable [[place] 81 mg PO DAILY 06/29/19 04/01/21 Aspirin] Atorvastatin Calcium [Lipitor] 80 mg PO DAILY 06/29/19 04/01/21 Furosemide [Lasix] 40 mg PO DAILY #9 tablet 06/29/19 04/01/21 Glimepiride [Amaryl] 1 mg PO BID 06/29/19 04/01/21 Isosorbide Mononitrate ER [Imdur] 30 mg PO DAILY 06/29/19 04/01/21 Losartan Potassium 25 mg PO DAILY 06/29/19 04/01/21 Potassium Chloride 10 meq PO DAILY #10 capsule.er 06/29/19 04/01/21 Ranolazine [Ranexa] 500 mg PO BID 06/29/19 04/01/21 Tamsulosin [Flomax] 0.4 mg PO DAILY 06/29/19 04/01/21 carvediloL phosphate [Coreg Cr] 40 mg PO DAILY 06/29/19 04/01/21 HYDROcod/ACETAM 5/325 [Ronan 5/325] 1 - 2 tablet PO Q6H PRN #14 tablet 04/01/21 - Allergies Allergies/Adverse Reactions: Allergies Allergy/AdvReac Type Severity Reaction Status Date / Time clopidogrel [From Plavix] Allergy Rash Verified 04/01/21 09:45 sulfur dioxide Allergy Unknown Verified 04/01/21 09:45 - Social History Does the pt smoke?: No Smoking Status: Former smoker Does the pt drink ETOH?: No Does the pt have substance abuse?: No - Immunizations Immunizations are current?: No Immunizations: Other immun not current PD ED PE NORMAL - Vitals Vital signs reviewed: Yes (Wide pulse pressure) - General General: Alert and oriented X 3, No acute distress, Well developed/nourished - HEENT HEENT: Atraumatic, PERRL, EOMI - Neck Neck: Supple, no meningeal sign - Cardiac Cardiac: RRR, No murmur - Respiratory Respiratory: No respiratory distress, Clear bilaterally, Other (Chest wall tenderness posterior lateral on the left side specifically to 2 ribs. No crepitance no bruising.) - Abdomen Abdomen: Soft, Non tender, Non distended - Back Back: No CVA TTP, No spinal TTP - Derm Derm: Normal color, Warm and dry, No rash - Extremities Extremities: No deformity, No edema - Neuro Neuro: Alert and oriented X 3, slip feeder 2-12 intact, No motor deficit, No sensory deficit, Normal speech Eye Opening: Spontaneous Motor: Obeys Commands Verbal: Oriented GCS Score: 15 - Psych Psych: Normal mood, Normal affect Results - Vitals Vitals: Vital Signs - 24 hr 04/01/21 04/01/21 09:46 11:31 Temperature 36 C L 36.4 C L Heart Rate 92 71 Respiratory 20 20 Rate Blood Pressure 108/53 L 106/50 L O2 Saturation 96 100 Oxygen O2 Source Room air - Rads (name of study) ribs with PA chest Radiology: Prelim report reviewed (Impression: No displaced rib fracture or pneumothorax is detected.), EMP read indepedently, See rad report PD MEDICAL DECISION MAKING - ED course Complexity details: reviewed results, re-evaluated patient, considered differential, d/w patient ED course: 85-year-old male with a fall yesterday has contusion to his chest wall without rib fracture we will prescribe him some pain medication for use at home as needed. He appears mildly dehydrated as well. Departure - Departure Disposition: Home, Self Care Clinical Impression: Dehydration Chest wall contusion Qualifiers: Encounter type: initial encounter Laterality: left Qualified Code(s): S20.212A - Contusion of left front wall of thorax, initial encounter Condition: Stable Instructions: ED Contusion Chest Wall, ED Dehydration Follow-Up: CEM LOCO MD [Primary Care Provider] - Prescriptions: HYDROcod/ACETAM 5/325 [Ronan 5/325] 1 - 2 tablet PO Q6H PRN #14 tablet PRN Reason: Pain
--- NOTE | 2021-04-01 11:56 | XRAY Report ---
PROCEDURE: Ribs w/PA Chest LT INDICATIONS: fall left chest contusion TECHNIQUE: 3 views of the left ribs were acquired, along with a single view chest. COMPARISON: Prior chest radiograph, 06/28/2019 FINDINGS: Surgical changes and devices: An AICD can be seen. Post CABG changes are seen. Upper abdominal clip s are also seen. Bones and chest wall: No fractures or dislocations. Age-appropriate degenerative changes are seen. No suspicious bony lesions. Overlying soft tissues appear unremarkable. Lungs and pleura: Low lung volumes can be seen, causing a crowded appearance to the lung markings. M ild generalized interstitial prominence can be seen. No large pneumothorax or large pleural effusion can be seen. Mediastinum: Mediastinal contours appear normal. Heart size is moderately enlarged. IMPRESSION: No displaced rib fracture or pneumothorax is detected. Moderate cardiomegaly with interstitial prominence. Please correlate with patient examination, histor y, and laboratory values for underlying congestive heart failure. Postoperative and degenerative changes are seen. Reviewed by: Lukas Urbina MD on 04/01/2021 10:54 AM OTILIO Approved by: Lukas Urbina MD on 04/01/2021 10:54 AM OTILIO Station ID: [id number]
[2021-04-01 12:29] VITALS: BP 114/70
== END 2021-04-01 12:32 | disposition home or self-care (01) ==
LOC: ED 09:35
DX: S20.212A Contusion of left front wall of thorax, initial encounter (principal); W05.0XXA Fall from non-moving wheelchair, initial encounter; Y92.009 Unspecified place in unspecified non-institutional (private) residence as the place of occurrence of the external cause; E86.0 Dehydration; I10 Essential (primary) hypertension; E11.9 Type 2 diabetes mellitus without complications; Z79.84 Long term (current) use of oral hypoglycemic drugs; Z79.82 Long term (current) use of aspirin; Z87.891 Personal history of nicotine dependence
CPT/HCPCS: 96372; 99283; 99284

== ENCOUNTER 2021-07-01 09:32 | Outpatient (CLI) | payer MEDICARE, OTHER | END 2021-07-01 09:33 | disposition critical access hospital (66) | LOC: EMS 09:32 | DX: R53.1 Weakness (principal); R60.0 Localized edema; R06.02 Shortness of breath; E16.2 Hypoglycemia, unspecified | CPT/HCPCS: A0425; A0427 ==

== ENCOUNTER 2021-07-01 09:56 | Inpatient (IN) | payer MEDICARE, OTHER ==
[2021-07-01] MEDS ORDERED: ALBUTEROL 1 PUFF INH STA (10:08)
--- NOTE | 2021-07-01 10:10 | ED Physician Documentation ---
PD HPI ALTERED MENTAL STATUS - Stated complaint Stated Complaint: WEAKNESS - History obtained from History obtained from: Patient, EMS - History of Present Illness Timing - onset: Today (general weakness and less alert this morning. Has had so me congestion and cough for few days.) Timing - duration: Days (few days of some congestion and cough, with increase weakness today. Low blood sugar this morning.) Timing - details: Gradual onset Quality / character: Confused (mild), Other (general weakness and decreased oral intake. Was told by his clay plant treater to "not drink any fluids" per his .) Associated symptoms: Cough, Other (some congestion and general malaise/weakness for few days. less oral intake.). No: Fever, Headache Contributing factors: Recent med change (He and his state he had a decrease in his diuretic couple of weeks ago. Some mild increased edema in the legs. No change in his diabetes medicines. He did get his Trulicity shot yesterday as usual.) Basline status: Alert and oriented X 3, Confused (somewhat forgetful), Walker Treatment TAR DISTILLATION SUPERVISOR: Accucheck (low blood sugar on scene, and given D50W IV.) Similar symptoms before: Has not had sx before Recently seen: Clinic (clay plant treater couple weeks ago with decrease in diuretic and told to decrease fluid intake per .) Review of Systems Constitutional: reports: Myalgias. denies: Fever, Chills Nose: reports: Congestion. denies: Rhinorrhea / runny nose Throat: denies: Sore throat Respiratory: reports: Cough PD PAST MEDICAL HISTORY - Past Medical History Cardiovascular: Hypertension, High cholesterol, Coronary artery disease, Atrial fibrillation Respiratory: None Neuro: CVA Endocrine/Autoimmune: Type 2 diabetes GI: Hiatal hernia : Benign prostate hypertrophy HEENT: Glaucoma Psych: None Musculoskeletal: None Derm: None - Past Surgical History Past Surgical History: Yes General: Hiatal hernia repair Cardiovascular: CABG, Pacemaker, AICD Neuro: Craniotomy - Present Medications Home Medications: Ambulatory Orders Medication Instructions Recorded Confirmed Aspirin Chewable [[place]onal[place] 81 mg PO DAILY 06/29/19 07/01/21 Aspirin] Atorvastatin Calcium [Lipitor] 80 mg PO DAILY 06/29/19 07/01/21 Glimepiride [Amaryl] 1 mg PO BID 06/29/19 07/01/21 Isosorbide Mononitrate ER [Imdur] 30 mg PO DAILY 06/29/19 07/01/21 Losartan Potassium 25 mg PO DAILY 06/29/19 07/01/21 Ranolazine [Ranexa] 500 mg PO BID 06/29/19 07/01/21 Tamsulosin [Flomax] 0.4 mg PO DAILY 06/29/19 07/01/21 carvediloL phosphate [Coreg Cr] 20 mg PO DAILY 06/29/19 07/01/21 Dulaglutide [Trulicity] 1.5 mg SUBQ Q7D 07/01/21 07/01/21 Furosemide [Lasix] 20 mg PO DAILY 07/01/21 07/01/21 Multivitamin 1 tab PO DAILY 07/01/21 07/01/21 - Allergies Allergies/Adverse Reactions: Allergies Allergy/AdvReac Type Severity Reaction Status Date / Time clopidogrel [From Plavix] Allergy Rash Verified 07/01/21 10:04 sulfur dioxide Allergy Unknown Verified 07/01/21 10:04 - Social History Does the pt smoke?: No Smoking Status: Former smoker Does the pt drink ETOH?: No Does the pt have substance abuse?: No - Immunizations Immunizations are current?: No Immunizations: Other immun not current PD ED PE NORMAL - Vitals Vital signs reviewed: Yes - General General: Alert and oriented X 3, Well developed/nourished, Other (able to talk in complete sentences. Sitting semi-reclined comfortably. Does have some audible wheezing. ) - HEENT HEENT: Ears normal, Pharynx benign. No: Moist mucous membranes - Neck Neck: Supple, no meningeal sign, No adenopathy - Cardiac Cardiac: No murmur. No: RRR (irregular but rate controlled. ) - Respiratory Respiratory: No respiratory distress. No: Clear bilaterally (diffuse midexpiratory wheezing. Some fine crackles at bases bilaterally 1/[address]. ) - Abdomen Abdomen: Soft, Non tender, Non distended, No organomegaly. No: Normal bowel sounds (diminished) - Male Male : Deferred - Rectal Rectal: Deferred - Back Back: No CVA TTP - Derm Derm: Normal color, Warm and dry - Extremities Extremities: No tenderness to palpate, Normal ROM s pain, No calf tenderness / cord, Other (1+ edema in both lower legs. Not tender. No redness. ) - Neuro Neuro: Alert and oriented X 3, No motor deficit, Normal speech Eye Opening: Spontaneous Motor: Obeys Commands Verbal: Oriented GCS Score: 15 - Psych Psych: Normal mood, Normal affect Results - Vitals Vitals: Vital Signs - 24 hr 07/01/21 07/01/21 07/01/21 10:00 10:24 12:10 Temperature 37.0 C Heart Rate 71 78 78 Respiratory 19 14 13 Rate Blood Pressure 101/53 L 97/67 O2 Saturation 99 96 Oxygen O2 Source Room air - Labs Labs: Laboratory Tests 07/01/21 07/01/21 07/01/21 10:28 10:29 10:29 WBC 7.6 RBC 3.67 L Hgb 10.9 L Hct 34.1 L MCV 92.9 MCH 29.7 MCHC 32.0 RDW 19.3 H Plt Count 218 MPV 9.8 Neut # (Auto) 6.1 Lymph # (Auto) 0.7 L [place] # (Auto) 0.4 Eos # (Auto) 0.3 Baso # (Auto) 0.1 Absolute Nucleated RBC 0.00 Nucleated RBC % 0.0 Sodium Potassium Chloride Carbon Dioxide Anion Gap BUN Creatinine Estimated GFR (MDRD) Glucose Estimat Average Glucose Hemoglobin A1c % Lactic Acid Calcium Magnesium Total Bilirubin AST ALT Alkaline Phosphatase Troponin I High Sens B-Natriuretic Peptide 1519 H Total Protein Albumin Globulin Albumin/Globulin Ratio Lipase Nasal Adenovirus (PCR) NOT DETECTED Nasal B. parapertussis DNA (PCR) NOT DETECTED Nasal Coronavir 229E PCR NOT DETECTED Nasal Coronavir HKU1 PCR NOT DETECTED Nasal Coronavir NL63 PCR NOT DETECTED Nasal Coronavir OC43 PCR NOT DETECTED Nasal Enterovir/Rhinovir PCR NOT DETECTED Nasal Influenza B PCR NOT DETECTED Nasal Influenza A PCR NOT DETECTED Nasal Parainfluen 1 PCR NOT DETECTED Nasal Parainfluen 2 PCR NOT DETECTED Nasal Parainfluen 3 PCR NOT DETECTED Nasal Parainfluen 4 PCR NOT DETECTED Nasal RSV (PCR) NOT DETECTED Nasal B.pertussis DNA PCR NOT DETECTED Nasal C.pneumoniae (PCR) NOT DETECTED [place] Human Metapneumo PCR NOT DETECTED Nasal M.pneumoniae (PCR) NOT DETECTED Nasal SARS-CoV-2 (PCR) NOT DETECTED 07/01/21 07/01/21 07/01/21 10:29 10:29 10:29 WBC RBC Hgb Hct MCV MCH MCHC RDW Plt Count MPV Neut # (Auto) Lymph # (Auto) [place] # (Auto) Eos # (Auto) Baso # (Auto) Absolute Nucleated RBC Nucleated RBC % Sodium 132 L Potassium 4.1 Chloride 98 L Carbon Dioxide 21 Anion Gap 13.0 BUN 60 H Creatinine 3.1 H Estimated GFR (MDRD) 19 L Glucose 96 Estimat Average Glucose 103 H Hemoglobin A1c % 5.2 Lactic Acid Calcium 8.8 Magnesium 2.4 Total Bilirubin 1.4 H AST 24 ALT 17 Alkaline Phosphatase 126 H Troponin I High Sens 38.5 H* B-Natriuretic Peptide Total Protein 6.6 L Albumin 3.1 L Globulin 3.5 Albumin/Globulin Ratio 0.9 L Lipase 26 Nasal Adenovirus (PCR) Nasal B. parapertussis DNA (PCR) Nasal Coronavir 229E PCR Nasal Coronavir HKU1 PCR Nasal Coronavir NL63 PCR Nasal Coronavir OC43 PCR Nasal Enterovir/Rhinovir PCR Nasal Influenza B PCR Nasal Influenza A PCR Nasal Parainfluen 1 PCR Nasal Parainfluen 2 PCR Nasal Parainfluen 3 PCR Nasal Parainfluen 4 PCR Nasal RSV (PCR) Nasal B.pertussis DNA PCR Nasal C.pneumoniae (PCR) [place] Human Metapneumo PCR Nasal M.pneumoniae (PCR) Nasal SARS-CoV-2 (PCR) 07/01/21 12:08 WBC RBC Hgb Hct MCV MCH MCHC RDW Plt Count MPV Neut # (Auto) Lymph # (Auto) [place] # (Auto) Eos # (Auto) Baso # (Auto) Absolute Nucleated RBC Nucleated RBC % Sodium Potassium Chloride Carbon Dioxide Anion Gap BUN Creatinine Estimated GFR (MDRD) Glucose Estimat Average Glucose Hemoglobin A1c % Lactic Acid 1.3 Calcium Magnesium Total Bilirubin AST ALT Alkaline Phosphatase Troponin I High Sens B-Natriuretic Peptide Total Protein Albumin Globulin Albumin/Globulin Ratio Lipase Nasal Adenovirus (PCR) Nasal B. parapertussis DNA (PCR) Nasal Coronavir 229E PCR Nasal Coronavir HKU1 PCR Nasal Coronavir NL63 PCR Nasal Coronavir OC43 PCR Nasal Enterovir/Rhinovir PCR Nasal Influenza B PCR Nasal Influenza A PCR Nasal Parainfluen 1 PCR Nasal Parainfluen 2 PCR Nasal Parainfluen 3 PCR Nasal Parainfluen 4 PCR Nasal RSV (PCR) Nasal B.pertussis DNA PCR Nasal C.pneumoniae (PCR) [place] Human Metapneumo PCR Nasal M.pneumoniae (PCR) Nasal SARS-CoV-2 (PCR) - Rads (name of study) chest xray Radiology: Prelim report reviewed (interstitial prominence bilaterally most c/w CHF, but cannot exclude infectious. ), See rad report PD MEDICAL DECISION MAKING - ED course Complexity details: re-evaluated patient (Recheck blood sugar is low again. He is given repeat dose and if dextrose IV. Unclear why his blood sugar is low other than change metabolism perhaps from hydration or illness. Some element of CHF though not overtly. Still with some general weakness. Creatinine is elevated above baseline double), considered differential (some congested cough. Wheezes scattered. Some fine crackles at bases. He is conversant. Mild leg edema. ), d/w patient ED course: Patient is having multiple issues with general weakness cough and congestion are suggestive of acute illness or infection. Chest x-ray looks more like CHF. His viral panel is negative. Consider some viral illness however. No obvious focal infiltrate on the chest x-ray. Less oral intake over the last few days and acute kidney injury with elevated creatinine. His blood sugar is also unusually low this morning and not a typical problem according to his . His renal insufficiency lkely altering the metabolism of his Trulicity. I feel there are multiple issues going on that make him concerning for discharge. I will talk with the hospitalist. Departure - Departure Disposition: 66 [facility] DC/Xfer Clinical Impression: General weakness, Hypoglycemia, SRINIVAS (acute kidney injury) Dyspnea Qualifiers: Dyspnea type: shortness of breath Qualified Code(s): R06.02 - Shortness of breath CHF (congestive heart failure) Qualifiers: Heart failure type: unspecified Heart failure chronicity: acute on chronic Qualified Code(s): I50.9 - Heart failure, unspecified Condition: Stable Record reviewed to determine appropriate education?: Yes Discharge Date/Time: 07/01/21 14:30
[2021-07-01 10:38] LABS: BASOPHILS # (AUTO) 0.1 10^3/uL (0.0-0.1); BASOPHILS % (AUTO) 0.7 %; EOSINOPHILS # (AUTO) 0.3 10^3/uL (0.0-0.7); EOSINOPHILS % (AUTO) 4.5 %; HCT - HEMATOCRIT 34.1 % (42.0-52.0); HGB - HEMOGLOBIN 10.9 g/dL (14.0-18.0); LYMPHOCYTES # (AUTO) 0.7 10^3/uL (1.5-3.5); LYMPHOCYTES % (AUTO) 9.5 %; MEAN CORPUSCULAR HEMOGLOBIN 29.7 pg (27.0-31.0); MEAN CORPUSCULAR VOLUME 92.9 fL (80.0-94.0); MEAN PLATELET VOLUME 9.8 fL (7.4-11.4); MONOCYTES # (AUTO) 0.4 10^3/uL (0.0-1.0); MONOCYTES % (AUTO) 5.5 %; NEUTROPHILS # (AUTO) 6.1 10^3/uL (1.5-6.6); NEUTROPHILS % (AUTO) 79.4 %; PLT - PLATELET COUNT 218 10^3/uL (130-450); RED BLOOD COUNT 3.67 10^6/uL (4.70-6.10); RED CELL DISTRIBUTION WIDTH 19.3 % (12.0-15.0); WHITE BLOOD COUNT 7.6 x10^3/uL (4.8-10.8)
[2021-07-01 10:51] LABS: ALBUMIN 3.1 g/dL (3.2-5.5); ALBUMIN/GLOBULIN RATIO 0.9 (1.0-2.2); BILIRUBIN,TOTAL 1.4 mg/dL (0.2-1.0); CALCIUM 8.8 mg/dL (8.5-10.3); CREATININE 3.1 mg/dL (0.6-1.2); MAGNESIUM 2.4 mg/dL (1.7-2.8); POTASSIUM 4.1 mmol/L (3.5-5.0); TOTAL PROTEIN 6.6 g/dL (6.7-8.2)
--- NOTE | 2021-07-01 10:55 | XRAY Report ---
PROCEDURE: Chest 1 View X-Ray INDICATIONS: Chest Pain TECHNIQUE: One view of the chest was acquired. COMPARISON: Rib radiographs dated 04/01/2021; chest Stated 06/28/2019 FINDINGS: Surgical changes and devices: Left chest wall cardiac device with single ventricular lead. Postsurgic al changes of prior CABG. Surgical clips overlying the upper abdomen. Lungs and pleura: There is diffuse interstitial edema with mild basilar opacities. There is pulmonary vascular congestion. Likely small left-sided pleural effusion. Mediastinum: Mediastinal contours appear normal. Heart size is enlarged. Bones and chest wall: No suspicious bony lesions. Overlying soft tissues appear unremarkable. IMPRESSION: Findings most consistent with CHF with cardiomegaly, pulmonary vascular congestion, interstitial paul a, pulmonary edema, and likely small left-sided pleural effusion. Underlying infectious process not c ompletely excluded. Reviewed by: Javi Wolf DO on 07/01/2021 9:54 AM [facility] Approved by: Javi Wolf DO on 07/01/2021 9:54 AM [facility] Station ID: [id number]
[2021-07-01] MEDS ORDERED: FUROSEMIDE 40 MG/4 ML VIAL IVP STA (11:06)
[2021-07-01 11:16] LABS: ESTIMATED AVERAGE GLUCOSE 103 mg/dL (70-100); HEMOGLOBIN A1c% 5.2 % (4.27-6.07)
[2021-07-01] MEDS ORDERED: cefTRIAXone 1 GM VIAL IVP STA (11:31)
[2021-07-01] MEDS ORDERED: SODIUM CHLORIDE 0.9% 300 ML IV STA (11:31)
[2021-07-01 11:33] LABS: B. PARAPERTUSSIS- RESP PCR PAN NOT DETECTED; B. PERTUSSIS- RESP PCR PANEL NOT DETECTED; C. PNEUMONIAE- RESP PCR PANEL NOT DETECTED; CORONAVIRUS 229E-RESP PCR NOT DETECTED; CORONAVIRUS HKU1-RESP PCR NOT DETECTED; CORONAVIRUS NL63-RESP PCR NOT DETECTED; CORONAVIRUS OC43-RESP PCR NOT DETECTED; HUMAN METAPNEUMOVIRUS NOT DETECTED; INFLUENZA A- RESP PCR PANEL NOT DETECTED; INFLUENZA B - RESP PCR PANEL NOT DETECTED; M. PNEUMONIAE- RESP PCR PANEL NOT DETECTED; PARAINFLUENZA VIRUS 1 NOT DETECTED; PARAINFLUENZA VIRUS 2 NOT DETECTED; PARAINFLUENZA VIRUS 3 NOT DETECTED; PARAINFLUENZA VIRUS 4 NOT DETECTED; RHINOVIRUS/ENTEROVIRUS NOT DETECTED; RSV- RESP PCR PANEL NOT DETECTED; SARS-CoV-2 -RESP PCR PANEL NOT DETECTED
[2021-07-01] MEDS ORDERED: DEXTROSE 50% ABBOJECT 25 GM/50 ML SYRINGE IVP STA ×2 (11:45→11:58)
[2021-07-01] MEDS ORDERED: DEXTROSE 50% ABBOJECT 25 GM/50 ML SYRINGE ONE (11:45)
[2021-07-01] MEDS ORDERED: DEXTROSE 5% 1,000 ML IV STA (12:54)
[2021-07-01] MEDS ORDERED: oxyCODONE 5 MG TABLET PO PRN (12:57)
[2021-07-01] MEDS ORDERED: ACETAMINOPHEN 325 MG TABLET PO PRN (12:57)
[2021-07-01] MEDS ORDERED: ONDANSETRON ODT 4 MG TABLET TL PRN (12:57)
[2021-07-01] MEDS ORDERED: DEXTROSE 5%-0.45% NACL 1,000 ML IV SCH ×2 (13:00→16:04)
--- NOTE | 2021-07-01 15:09 | HISTORY & PHYSICAL EXAMINATION ---
Chief Complaint - Chief Complaint Chief Complaint: acute kidney injury, hypoglycemia, weakness History of Present Illness - Admitted From Admitted From:: Home - History Obtained From Records Reviewed: [facility] History obtained from: Pt, chart review Exam Limitations: Pt mentation - History of Present Illness HPI Comment/Other: Mr. Jefferson Watson is a very pleasant 85 year old male with extensive medical hx that includes BPH, CAD s/p CABG (1987), afib, hemorrhagic CVA (2010), and T2DM brought into the ED by his due to concerns of general weakness and that he was less alert this morning. He is currently alert and oriented to self, date and location but unable to tell me why he is here, so history for this presentation is obtained via chart review and discussion with his . Per report he has had increasing congestion, cough, weakness, and confusion over the past few days. COVID test was negative in the ED. She has noticed over the past week that he has been voiding less frequently and the urine has been brown. This morning he was noted to have low blood sugar both at home and in the ED. Blood sugar was 32 in the ED and he received an amp of D50. He has had decreased oral intake recently (he reports decreased appetite to me), and his attributes this to his project management specialist telling him to decrease his fluid intake a month ago. His diuretics were decreased a few weeks ago and he has started to have increased mild edema in his legs. He is diabetic and was given his Trulicity shot yesterday. His reports he was diagnosed with diabetes a year ago and started on Trulicity. They do not check his blood sugars regularly because it has been normal. In the ED his creatinine was noted to be 3.1 with sodium of 132. His last creatinine found in [place] is 1.4 on March 2020. He was started on IV fluids with D5W. He was also noted to have a BNP of 1519, troponin of 38.5. His reports an extensive cardiac history, including CHF. Given his acute kidney injury, weakness, reported confusion, and hypoglycemia the decision was made to admit him for further work up. He is afebrile. His heart rate has been 70s-80s and his blood pressures 90s/50-60s. On exam this afternoon his abdomen is soft and distended and he appears to have ascites. Denies abdominal pain. He has audible wheezes in all lung adames but denies dyspnea and his O2 sat is 98% on room air. He denies chest pain, palpitations, dizziness, nausea, dysuria, or difficulty initiating a stream. He is unable to state when he last voided or had a bowel movement but does not currently feel the need to do either. His blood sugar was 32 when checked by the nurse who admitted him to the floor and he was given a second amp of D50 and started on a slow infusion of D50W. A retroperitoneal ultrasound was performed and revealed almost 3000mL of urine in his bladder and a catheter was placed with immediate return of tea colored urine. His reports that when he had a CVA ten years ago he had an indwelling catheter that when removed required them to intermittently catheterize him for 2 months before "something was placed in his back" by a urologist to "help him learn to urinate again." Additionally found on chart review, the Pt was also seen in the ED in March after a fall at home that left him with a left chest wall contusion. He reports he has not fallen since. I discussed goals of care with the Pt and asked if his heart were stop would he want CPR, and would he want to be intubated/have a breathing tube if he were to have difficulty breathing. After thinking a moment he stated he would not want that, "No, I'm old". His reports he has a do not resuscitate order and we will try to get a copy of that. History - Past Medical History Cardiovascular: reports: Congestive heart failure, Hypertension, High cholest jhony, Coronary artery disease, Atrial fibrillation Respiratory: reports: None Neuro: reports: CVA Endocrine/Autoimmune: reports: Type 2 diabetes GI: reports: Hiatal hernia : reports: Benign prostate hypertrophy HEENT: reports: Glaucoma Psych: reports: None Musculoskeletal: reports: None Derm: reports: None MRSA Hx?: No - Past Surgical History General: reports: Hiatal hernia repair Cardiovascular: reports: CABG, Pacemaker, AICD Neuro: reports: Craniotomy - Family & Social History Family History Comment/Other: He reports his father from a myocardial infarction. Living arrangement: At home Living Situation: With spouse/s.o. Social History Notes: He lives with his in [place], [place]. His two sons and daughter live in [place] and [place]. He was previously employed in the [employer]. He did smoke about a pack a day for 10 years but quit in the 60s. He has not drank alcohol since the 70s. - Substance History Use: Uses substance without health or social issues: NONE Abuse: Recurrent use of substance despite neg consequences: NONE Dependence: Experiences withdrawal or developed tolerances: NONE Meds/Allgy - Home Medications Home Medications: Ambulatory Orders Medication Instructions Recorded Confirmed Aspirin Chewable [[place] 81 mg PO DAILY 06/29/19 07/01/21 Aspirin] Atorvastatin Calcium [Lipitor] 80 mg PO DAILY 06/29/19 07/01/21 Glimepiride [Amaryl] 1 mg PO BID 06/29/19 07/01/21 Isosorbide Mononitrate ER [Imdur] 30 mg PO DAILY 06/29/19 07/01/21 Losartan Potassium 25 mg PO DAILY 06/29/19 07/01/21 Ranolazine [Ranexa] 500 mg PO BID 06/29/19 07/01/21 Tamsulosin [Flomax] 0.4 mg PO DAILY 06/29/19 07/01/21 carvediloL phosphate [Coreg Cr] 20 mg PO DAILY 06/29/19 07/01/21 Dulaglutide [Trulicity] 1.5 mg SUBQ Q7D 07/01/21 07/01/21 Furosemide [Lasix] 20 mg PO DAILY 07/01/21 07/01/21 Multivitamin 1 tab PO DAILY 07/01/21 07/01/21 - Allergies Allergies/Adverse Reactions: Allergies Allergy/AdvReac Type Severity Reaction Status Date / Time clopidogrel [From Plavix] Allergy Rash Verified 07/01/21 10:04 sulfur dioxide Allergy Unknown Verified 07/01/21 10:04 Review of Systems - Constitutional Constitutional: reports: Weakness, Poor appetite. denies: Fatigue, Fever - Eyes Eyes: reports: Vision loss. denies: Pain, Irritation, Blurred vision - Ears, Nose & Throat Ears, Nose & Throat: denies: Ear pain, Nasal pain, Nasal discharge - Cardiovascular Cariovascular: denies: Irregular heart rate, Palpitations, Chest pain, Lightheadedness - Respiratory Respiratory: denies: Cough, Wheezing, SOB at rest, SOB with exertion - Gastrointestinal Gastrointestinal: denies: Abdominal pain, Abdominal distention, Constipation, Diarrhea, Change in bowel habits, Nausea, Vomiting - Genitourinary Genitourinary: denies: Dysuria, Frequency, Urgency, Hematuria, Incontinence, Fla nk pain - Musculoskeletal Musculoskeletal: reports: Muscle weakness. denies: Back pain, Limited range of motion - Integumentary Integumentary: denies: Rash, Pruritis, Lesions - Neurological Neurological: reports: General weakness. denies: Headache, Dizziness, Numbness - Psychiatric Psychiatric: denies: Depression - Endocrine Endocrine: denies: Polyuria, Polydypsia, Polyphagia - Hematologic/Lymphatic Hematologic/Lymphatic: denies: Anemia, Bruising - All Other Systems All Other Systems: reports: Reviewed and negative Prior Level of Functionality: Pt lives at home with his . He is able to dress himself, feed himself, brush his teeth and perform grooming activities without assistance. He ambulates with a walker but feels like he is currently weaker than his baseline. He fell at home a month ago but has not fallen since. Exam - Vital Signs Reviewed Vital Signs: Yes Vital Signs: Vital Signs x48h Temp Pulse Pulse Resp BP BP Pulse Ox 07/01/21 14:39 36.3 C L 73 15 99/52 L 100 07/01/21 14:00 86 16 97/76 97 07/01/21 12:10 78 13 97/67 96 07/01/21 10:24 78 14 07/01/21 10:00 37.0 C 71 19 101/53 L 99 - Physical Exam General Appearance: positive: No acute distress, Alert Eyes Bilateral: positive: Normal inspection, PERRL, EOMI, No lid inflammation, Conjunctivae nml ENT: positive: ENT inspection nml, No signs of dehydration, Other (Moist mucus membranes) Respiratory: positive: Chest non-tender, No respiratory distress, Wheezes (Audible wheezes in bilateral upper and lower lobes), Other (fine crackles bilaterally in the bases) Cardiovascular: positive: No murmur, No gallop, Irregularly irregular (rate controlled) Peripheral Pulses: positive: 2+ Abdomen: positive: Non-tender, No organomegaly, Nml bowel sounds, Other (bilateral ascites; abdomen distended, non-tender to light and deep palpation) Skin: positive: No rash, Pallor Extremities: positive: Nml appearance, No pedal edema Neurologic/Psychiatric: positive: Oriented x3 (Oriented to self, place, and year but unable to state why he was brought to the hospital) Comments/Other: Tea colored urine in [place] Sepsis Event Note (H) - Evaluation Current Stage of Sepsis: Ruled out Conclusion/Plan - Problem List (1) SRINIVAS (acute kidney injury) Conclusion/Plan: In the ED he was noted to have a creatinine of 3.1, up from 1.4 in March of 2020. This is likely due to a combination of factors, including urinary reten tion, decreased oral intake, and medication related. His urine is brown/tea- colored but clear, no sediment noted. He denies back pain. His reports he has not had kidney problems before. Will plan to continue to trend his creatinine with labs. His sodium and chloride are slightly low but magnesium and potassium are normal. -Indwelling aguilera catheter -Strict I/Os -Daily BMP -Stop Trulicity (2) Urinary retention due to benign prostatic hyperplasia Conclusion/Plan: Pt has had a history of this in the past, requiring an indwelling aguil[place] catheter ten years ago when he had his CVA. Tamsulosin is on his home medication list. His was unaware of retention issues until the past few days when she noticed his urine was darker than normal, and brown today, and realized she hadn't noticed him voiding much recently. It is unclear when his prostate was last checked. A retroperitoneal ultrasound was obtained that revealed 3L of urine in his bladder. He did not feel the urge to void or have abdominal pain. A aguilera catheter was placed with immediate return of 3L clear brown urine. No sediment noted. He has been afebrile, did not have flank pain, and does not appear to have a urinary tract infection. Will consider a UA if he starts to ex hibit signs of infection. Of note his reports that 10 years ago when he had a CVA and was admitted to [facility] he had an indwelling catheter for 5 weeks. When it was removed he had urinary retention and so they intermittently catheterized him at home until he was seen by a Urologist in [place] (Dr. Rowe?) [facility], possibly [facility]. Per report a device was implanted into the patient's back that helped him learn to void normally again. His was unsure of the name of the device and thought it was named on a card in his wallet. I could not find the card and he could not name the device. Will attempt to get the outside system records from 2010. -Continue the indwelling aguilera catheter, will likely d/c home with it until follow up with a urologist -Follow up with Urology- Pt needs a referral to a local urologist as he was last seen in [place] almost a decade ago -Obtain outside Urology records from Dr. Chaudhry in [place] (possibly [facility] Chaudhry, [facility]) (3) BPH (benign prostatic hyperplasia) Conclusion/Plan: See problem #2. Will resume Flomax when medication reconciliation has been completed. Qualifiers: Lower urinary tract symptom presence: symptoms present Lower urinary tract symptom detail: urinary retention Qualified Code(s): N40.1 - Benign prostatic hyperplasia with lower urinary tract symptoms; R33.8 - Other retention of urine (4) General weakness Conclusion/Plan: Pt uses a walker at baseline. Fell at home in March 2021 which resulted in a left chest wall contusion but has not fallen since. His reports he has generally gotten weaker since then. He feels that over the past week he has gotten weaker from his baseline. Will plan to have PT evaluate him tomorrow. -PT evaluation (5) Hypoglycemia Conclusion/Plan: Reportedly diagnosed with diabetes 1 year ago and was started on Glyburide and Trulicity. They do not check his blood sugars regularly. He was given Tr ulicity yesterday (it is a weekly shot). Had not had known episodes of hypoglycemia until this morning. Per his , his BG was 27 at his house. It was 32 in the ED and again on admission to the acute care floor. He has received multiple doses of D50 and is now receiving a slow infusion of D50. He ate approximately 25% of his dinner tonight and repeat blood glucose was in the 150s. Will continue to monitor. (6) Type 2 diabetes mellitus Conclusion/Plan: Reportedly diagnosed with diabetes 1 year ago and was started on Glyburide and Trulicity. They do not check his blood sugars regularly. He was given Trulicity yesterday (it is a weekly shot). His A1C today is 5.5. I have stopped his medications and will have him follow up with his PCP given the A1C. He likely does not need to resume this. He denied numbness and tingling in his hands and feet. He does have a history of glaucoma but could not tell me when he last had his eyes examined. -BG ac/hs -Low dose sliding scale ordered, likely will not need this Qualifiers: Diabetes mellitus assisted insulin use: without reimbursement consultant use Diabetes mellitus complication status: with hypoglycemia Diabetes mellitus complication detail: without coma Qualified Code(s): E11.649 - Type 2 diabetes mellitus with hypoglycemia without coma (7) History of coronary artery disease Conclusion/Plan: Stable. he has a history of coronary artery disease s/p CABG 1987. He has a pacemaker, the device card is in his wallet. Currently his rhythm is atrial fibrillation but it is rate controlled. EKG appears unchanged from previous. He denies chest pain or palpitations. He takes multiple cardiac meds at home. Will try to obtain his outpatient records from Dr. Brown at [facility]. His troponin and BNP are elevated but this is likely due to his CHF. -Continue to monitor -Obtain outpatient records (8) History of atrial fibrillation Conclusion/Plan: Stable. He is followed by Dr. Brown at [facility]. He is rate controlled and also has a pacemaker. Will try to obtain his outpatient records and resume his outpatient meds when able. He is not tachycardic or dyspnic and denies pain or palpitations. (9) Acute on chronic congestive heart failure Conclusion/Plan: Per report he has had this for "years". He was seen in the ED in June 2019 and felt to be having an episode of acute on chronic CHF. His current EF is unknown. His diuretics were recently decreased per his 's report. Currently he does not have lower extremity edema but does have audible wheezes. CXR findings reveal CHF with cardiomegaly, pulmonary vascular congestion, interstitial edema, pulmonary edema, and likely small left-sided pleural effusion. Underlying infectious process not completely excluded. He is afebrile and does not have leukocytosis. His BNP was 1500 and his troponin was elevated. He denies feeling short of breath and is saturating 98-100% on room air. Will try to obtain his outpatient records and resume his home meds when able. -Daily weights -Strict I/Os -Obtain outpatient records Qualifiers: Heart failure type: unspecified Qualified Code(s): I50.9 - Heart failure, unspecified (10) History of hemorrhagic cerebrovascular accident (CVA) without residual d eficits Conclusion/Plan: Per his this occurred in 2010. He does not have residual deficits though does get occasionally confused. He ambulates with a walker and is able to perform his ADLs at home. Denies headache and is neurologically intact today. - Lab Results Fish Bones: 07/01/21 10:29 07/01/21 15:57 - Diagnostic Imaging Results Diagnostic Imaging Results: positive: Final report reviewed Diagnostic Imaging Results Comments: 07/01 Retroperitoneal U/S: Marked bilateral hydronephrosis. Increased echogenicity of the kidneys concerning for medical renal disease Marked distention of the urinary bladder. Moderate ascites. Chest X-ray: Findings most consistent with CHF with cardiomegaly, pulmonary vascular congestion, interstitial edema, pulmonary edema, and likely small left- sided pleural effusion. Underlying infectious process not completely excluded. - EKG Results EKG Interpreted Independently: Yes EKG Comparison: Unchanged from prior EKG EKG Findings: afib, rate controlled Core Measures - Anticipated LOS I expect patient to be DC'd or transferred within 96 hours.: Yes - DVT/VTE - Prophylaxis VTE/DVT Device ordered at admit?: Yes
[2021-07-01 16:37] LABS: CALCIUM 8.8 mg/dL (8.5-10.3); POTASSIUM 3.8 mmol/L (3.5-5.0)
[2021-07-01] MEDS ORDERED: DEXTROSE 50% ABBOJECT 25 GM/50 ML SYRINGE IVP ONE ×3 (16:40→22:16)
--- NOTE | 2021-07-01 16:56 | Ultrasound Report ---
PROCEDURE: Retroperitoneal INDICATIONS: acute renal failure TECHNIQUE: Real-time scanning was performed of the retroperitoneal organs, with image documentation. COMPARISON: None. FINDINGS: The right kidney measures 11.4 cm in length. Renal cortex is normal in size at 1.8 cm. There is marke d hydronephrosis. There is increased echogenicity of the renal cortex. There is a anechoic cystic les ion along the superior pole of the right kidney measuring up to 1.9 cm in greatest diameter most cons istent with the simple cysts. The left kidney measures 14.4 cm in length. Renal cortex is normal in size at 1.6 cm. There is marked hydronephrosis. There is increased echogenicity of the renal cortex. The bladder is diffusely distended on prevoid bladder volumes with prevoid volume of 2877 cc. Patient is unable to void to get postvoid bladder volume. There is moderate ascites noted throughout the abdomen. IMPRESSION: Marked bilateral hydronephrosis. Increased echogenicity of the kidneys concerning for medical renal disease. Marked distention of the urinary bladder. Moderate ascites. Reviewed by: Javi Wolf DO on 07/01/2021 3:55 PM [facility] Approved by: Javi Wolf DO on 07/01/2021 3:55 PM [facility] Station ID: [id number]
[2021-07-01] MEDS ORDERED: DEXTROSE 50% IV SCH ×2 (17:00→20:54)
[2021-07-01] MEDS ORDERED: SODIUM CHLORIDE 0.9% IV SCH ×2 (17:00→20:54)
[2021-07-01] MEDS ORDERED: SODIUM CHLORIDE 0.9% 1,000 ML IV SCH (17:00)
[2021-07-01] MEDS: INSULIN ASPART 300 UNIT/3 ML PEN SUBQ SCH ×2 (17:05→21:13)
[2021-07-01] MEDS: SODIUM CHLORIDE FLUSH 0.9% 10 ML SYRINGE IVP SCH ×2 (17:11→23:36)
[2021-07-01] MEDS: carvediloL 3.125 MG TABLET PO SCH (20:43)
[2021-07-01] MEDS ORDERED: FUROSEMIDE 20 MG/2 ML VIAL IVP STA (20:55)
[2021-07-01] MEDS ORDERED: GLUCAGON 1 MG/ML VIAL IVP ONE (22:17)
[2021-07-01 22:51] LABS: CALCIUM 8.9 mg/dL (8.5-10.3); CREATININE 3.2 mg/dL (0.6-1.2); POTASSIUM 3.9 mmol/L (3.5-5.0)
[2021-07-01] MEDS ORDERED: DEXTROSE 10% 250 ML IV ONE (22:56)
[2021-07-01] MEDS ORDERED: DEXTROSE 10% 1,000 ML IV SCH (23:00)
[2021-07-02] MEDS ORDERED: DEXTROSE 50% ABBOJECT 25 GM/50 ML SYRINGE IVP ONE ×6 (02:22→12:21)
[2021-07-02] MEDS ORDERED: GLUCAGON 1 MG/ML VIAL IVP ONE (02:22)
[2021-07-02] MEDS: ONDANSETRON 4 MG/2 ML VIAL IVP PRN ×2 (02:46→11:45)
[2021-07-02] MEDS ORDERED: FUROSEMIDE 40 MG/4 ML VIAL IVP STA (04:11)
[2021-07-02 06:11] LABS: BASOPHILS # (AUTO) 0.1 10^3/uL (0.0-0.1); BASOPHILS % (AUTO) 0.5 %; EOSINOPHILS # (AUTO) 0.5 10^3/uL (0.0-0.7); EOSINOPHILS % (AUTO) 4.1 %; HCT - HEMATOCRIT 33.3 % (42.0-52.0); HGB - HEMOGLOBIN 10.8 g/dL (14.0-18.0); LYMPHOCYTES % (AUTO) 8.4 %; MEAN CORPUSCULAR HEMOGLOBIN 29.6 pg (27.0-31.0); MEAN CORPUSCULAR HGB CONC 32.4 g/dL (32.0-36.0); MEAN CORPUSCULAR VOLUME 91.2 fL (80.0-94.0); MEAN PLATELET VOLUME 10.3 fL (7.4-11.4); MONOCYTES # (AUTO) 1.1 10^3/uL (0.0-1.0); MONOCYTES % (AUTO) 9.5 %; NEUTROPHILS # (AUTO) 8.9 10^3/uL (1.5-6.6); NEUTROPHILS % (AUTO) 77.1 %; PLT - PLATELET COUNT 229 10^3/uL (130-450); RED BLOOD COUNT 3.65 10^6/uL (4.70-6.10); RED CELL DISTRIBUTION WIDTH 19.3 % (12.0-15.0); WHITE BLOOD COUNT 11.6 x10^3/uL (4.8-10.8)
[2021-07-02 06:27] LABS: CALCIUM 8.8 mg/dL (8.5-10.3); CREATININE 3.1 mg/dL (0.6-1.2); POTASSIUM 3.7 mmol/L (3.5-5.0)
--- NOTE | 2021-07-02 07:26 | PROVIDER PROGRESS NOTE ---
Subjective - Prog Note Date Prog Note Date: 07/02/21 - Subjective Pt reports feeling: Worse Subjective: Pt did not sleep well. He continued to have episodes of hypoglycemia overnight and these continue today. He has received multiple doses of D50 and IVF with D10. He is complaining of feeling short of breath but continues to sat in the mid to high 90s on room air. Audible wheezes and crackles. No extremity swelling. Has had appropriate urine output and the urine is more yellow at this time. Remains afebrile but is now nauseous and having episodes of vomiting with associated chest pain. Had a short run of VTACH that was self limiting. The pain was not radiating and he rates it at 6.5/10, aching and constant. Troponins and an EKG were ordered, unchanged from previous. He fell asleep after receiving reglan for nausea and did not complain of further chest pain. Objective - Vital Signs/Intake & Output Reviewed Vital Signs: Yes Vital Signs: Vital Signs x48h Temp Pulse Resp BP Pulse Ox 07/01/21 23:32 36.5 C 97 20 100/57 L 98 Intake & Output: Intake & Output 06/29/21 06/30/21 07/01/21 07/02/21 23:59 23:59 23:59 23:59 Intake Total 1337.5 201.25 Output Total 3400 400 Balance -2062.5 -198.75 - Objective General Appearance: positive: Other (Pt is alert and anxious, in mild distress related to vomiting and pain) Eyes Bilateral: positive: Normal inspection, PERRL, EOMI, No lid inflammation, Conjunctivae nml, No scleral icterus ENT: positive: ENT inspection nml, No signs of dehydration, Other (Moist mucus membranes) Respiratory: positive: Other (Audible wheezes in all lung adames, crackles heard in the bases) Cardiovascular: positive: Irregularly irregular Peripheral Pulses: 2+ Dorsalis pedis (R), 2+ Dorsalis pedis (L) Abdomen: positive: Non-tender, No organomegaly, Nml bowel sounds, Other (Distended and soft, non-tender to palpation) Skin: positive: Pallor, Other (No open wounds noted, the skin on his buttocks and heels is dry and intact) Extremities: positive: Non-tender, Full ROM, Nml appearance, No pedal edema Neurologic/Psychiatric: positive: Oriented x3 - Lab Results Fish Bones: 07/02/21 05:15 07/02/21 15:50 Other Labs: Lab Results x24hrs 07/02/21 07/02/21 07/02/21 Range/Units 05:15 05:15 05:15 WBC 11.6 H (4.8-10.8) x10^3/uL RBC 3.65 L (4.70-6.10) 10^6/uL Hgb 10.8 L (14.0-18.0) g/dL Hct 33.3 L (42.0-52.0) % MCV 91.2 (80.0-94.0) fL MCH 29.6 (27.0-31.0) pg MCHC 32.4 (32.0-36.0) g/dL RDW 19.3 H (12.0-15.0) % Plt Count 229 (130-450) 10^3/uL MPV 10.3 (7.4-11.4) fL Neut # (Auto) 8.9 H (1.5-6.6) 10^3/uL Lymph # (Auto) 1.0 L (1.5-3.5) 10^3/uL Gosper # (Auto) 1.1 H (0.0-1.0) 10^3/uL Eos # (Auto) 0.5 (0.0-0.7) 10^3/uL Baso # (Auto) 0.1 (0.0-0.1) 10^3/uL Absolute Nucleated RBC 0.00 x10^3/uL Nucleated RBC % 0.0 /100WBC Sodium 132 L (135-145) mmol/L Potassium 3.7 (3.5-5.0) mmol/L Chloride 98 L (101-111) mmol/L Carbon Dioxide 23 (21-32) mmol/L Anion Gap 11.0 (6-13) BUN 62 H (6-20) mg/dL Creatinine 3.1 H (0.6-1.2) mg/dL Estimated GFR (MDRD) 19 L (>89) Glucose 50 L* (70-100) mg/dL Estimat Average Glucose (70-100) mg/dL Hemoglobin A1c % (4.27-6.07) % Lactic Acid (0.5-2.2) mmol/L Calcium 8.8 (8.5-10.3) mg/dL Magnesium (1.7-2.8) mg/dL Total Bilirubin (0.2-1.0) mg/dL AST (10-42) IU/L ALT (10-60) IU/L Alkaline Phosphatase (42-121) IU/L Troponin I High Sens (2.3-19.7) ng/L B-Natriuretic Peptide 1628 H (5-100) pg/mL Total Protein (6.7-8.2) g/dL Albumin (3.2-5.5) g/dL Globulin (2.1-4.2) g/dL Albumin/Globulin Ratio (1.0-2.2) Lipase (22-51) U/L Nasal Adenovirus (PCR) Nasal B. parapertussis DNA (PCR) Nasal Coronavir 229E PCR Nasal Coronavir HKU1 PCR Nasal Coronavir NL63 PCR Nasal Coronavir OC43 PCR Nasal Enterovir/Rhinovir PCR Nasal Influenza B PCR Nasal Influenza A PCR Nasal Parainfluen 1 PCR Nasal Parainfluen 2 PCR Nasal Parainfluen 3 PCR Nasal Parainfluen 4 PCR Nasal RSV (PCR) Nasal B.pertussis DNA PCR Nasal C.pneumoniae (PCR) Pillo Human Metapneumo PCR Nasal M.pneumoniae (PCR) Nasal SARS-CoV-2 (PCR) 07/01/21 07/01/21 07/01/21 Range/Units 22:20 15:57 12:08 WBC (4.8-10.8) x10^3/uL RBC (4.70-6.10) 10^6/uL Hgb (14.0-18.0) g/dL Hct (42.0-52.0) % MCV (80.0-94.0) fL MCH (27.0-31.0) pg MCHC (32.0-36.0) g/dL RDW (12.0-15.0) % Plt Count (130-450) 10^3/uL MPV (7.4-11.4) fL Neut # (Auto) (1.5-6.6) 10^3/uL Lymph # (Auto) (1.5-3.5) 10^3/uL Gosper # (Auto) (0.0-1.0) 10^3/uL Eos # (Auto) (0.0-0.7) 10^3/uL Baso # (Auto) (0.0-0.1) 10^3/uL Absolute Nucleated RBC x10^3/uL Nucleated RBC % /100WBC Sodium 134 L 133 L (135-145) mmol/L Potassium 3.9 3.8 (3.5-5.0) mmol/L Chloride 100 L 100 L (101-111) mmol/L Carbon Dioxide 23 20 L (21-32) mmol/L Anion Gap 11.0 13.0 (6-13) BUN 63 H 63 H (6-20) mg/dL Creatinine 3.2 H 3.0 H (0.6-1.2) mg/dL Estimated GFR (MDRD) 19 L 20 L (>89) Glucose 23 L* 32 L* (70-100) mg/dL Estimat Average Glucose (70-100) mg/dL Hemoglobin A1c % (4.27-6.07) % Lactic Acid 1.3 (0.5-2.2) mmol/L Calcium 8.9 8.8 (8.5-10.3) mg/dL Magnesium (1.7-2.8) mg/dL Total Bilirubin (0.2-1.0) mg/dL AST (10-42) IU/L ALT (10-60) IU/L Alkaline Phosphatase (42-121) IU/L Troponin I High Sens (2.3-19.7) ng/L B-Natriuretic Peptide (5-100) pg/mL Total Protein (6.7-8.2) g/dL Albumin (3.2-5.5) g/dL Globulin (2.1-4.2) g/dL Albumin/Globulin Ratio (1.0-2.2) Lipase (22-51) U/L Nasal Adenovirus (PCR) Nasal B. parapertussis DNA (PCR) Nasal Coronavir 229E PCR Nasal Coronavir HKU1 PCR Nasal Coronavir NL63 PCR Nasal Coronavir OC43 PCR Nasal Enterovir/Rhinovir PCR Nasal Influenza B PCR Nasal Influenza A PCR Nasal Parainfluen 1 PCR Nasal Parainfluen 2 PCR Nasal Parainfluen 3 PCR Nasal Parainfluen 4 PCR Nasal RSV (PCR) Nasal B.pertussis DNA PCR Nasal C.pneumoniae (PCR) Pillo Human Metapneumo PCR Nasal M.pneumoniae (PCR) Nasal SARS-CoV-2 (PCR) 07/01/21 07/01/21 07/01/21 Range/Units 10:29 10:29 10:29 WBC (4.8-10.8) x10^3/uL RBC (4.70-6.10) 10^6/uL Hgb (14.0-18.0) g/dL Hct (42.0-52.0) % MCV (80.0-94.0) fL MCH (27.0-31.0) pg MCHC (32.0-36.0) g/dL RDW (12.0-15.0) % Plt Count (130-450) 10^3/uL MPV (7.4-11.4) fL Neut # (Auto) (1.5-6.6) 10^3/uL Lymph # (Auto) (1.5-3.5) 10^3/uL Gosper # (Auto) (0.0-1.0) 10^3/uL Eos # (Auto) (0.0-0.7) 10^3/uL Baso # (Auto) (0.0-0.1) 10^3/uL Absolute Nucleated RBC x10^3/uL Nucleated RBC % /100WBC Sodium 132 L (135-145) mmol/L Potassium 4.1 (3.5-5.0) mmol/L Chloride 98 L (101-111) mmol/L Carbon Dioxide 21 (21-32) mmol/L Anion Gap 13.0 (6-13) BUN 60 H (6-20) mg/dL Creatinine 3.1 H (0.6-1.2) mg/dL Estimated GFR (MDRD) 19 L (>89) Glucose 96 (70-100) mg/dL Estimat Average Glucose 103 H (70-100) mg/dL Hemoglobin A1c % 5.2 (4.27-6.07) % Lactic Acid (0.5-2.2) mmol/L Calcium 8.8 (8.5-10.3) mg/dL Magnesium 2.4 (1.7-2.8) mg/dL Total Bilirubin 1.4 H (0.2-1.0) mg/dL AST 24 (10-42) IU/L ALT 17 (10-60) IU/L Alkaline Phosphatase 126 H (42-121) IU/L Troponin I High Sens 38.5 H* (2.3-19.7) ng/L B-Natriuretic Peptide (5-100) pg/mL Total Protein 6.6 L (6.7-8.2) g/dL Albumin 3.1 L (3.2-5.5) g/dL Globulin 3.5 (2.1-4.2) g/dL Albumin/Globulin Ratio 0.9 L (1.0-2.2) Lipase 26 (22-51) U/L Nasal Adenovirus (PCR) Nasal B. parapertussis DNA (PCR) Nasal Coronavir 229E PCR Nasal Coronavir HKU1 PCR Nasal Coronavir NL63 PCR Nasal Coronavir OC43 PCR Nasal Enterovir/Rhinovir PCR Nasal Influenza B PCR Nasal Influenza A PCR Nasal Parainfluen 1 PCR Nasal Parainfluen 2 PCR Nasal Parainfluen 3 PCR Nasal Parainfluen 4 PCR Nasal RSV (PCR) Nasal B.pertussis DNA PCR Nasal C.pneumoniae (PCR) Pillo Human Metapneumo PCR Nasal M.pneumoniae (PCR) Nasal SARS-CoV-2 (PCR) 07/01/21 07/01/21 07/01/21 Range/Units 10:29 10:29 10:28 WBC 7.6 (4.8-10.8) x10^3/uL RBC 3.67 L (4.70-6.10) 10^6/uL Hgb 10.9 L (14.0-18.0) g/dL Hct 34.1 L (42.0-52.0) % MCV 92.9 (80.0-94.0) fL MCH 29.7 (27.0-31.0) pg MCHC 32.0 (32.0-36.0) g/dL RDW 19.3 H (12.0-15.0) % Plt Count 218 (130-450) 10^3/uL MPV 9.8 (7.4-11.4) fL Neut # (Auto) 6.1 (1.5-6.6) 10^3/uL Lymph # (Auto) 0.7 L (1.5-3.5) 10^3/uL Gosper # (Auto) 0.4 (0.0-1.0) 10^3/uL Eos # (Auto) 0.3 (0.0-0.7) 10^3/uL Baso # (Auto) 0.1 (0.0-0.1) 10^3/uL Absolute Nucleated RBC 0.00 x10^3/uL Nucleated RBC % 0.0 /100WBC Sodium (135-145) mmol/L Potassium (3.5-5.0) mmol/L Chloride (101-111) mmol/L Carbon Dioxide (21-32) mmol/L Anion Gap (6-13) BUN (6-20) mg/dL Creatinine (0.6-1.2) mg/dL Estimated GFR (MDRD) (>89) Glucose (70-100) mg/dL Estimat Average Glucose (70-100) mg/dL Hemoglobin A1c % (4.27-6.07) % Lactic Acid (0.5-2.2) mmol/L Calcium (8.5-10.3) mg/dL Magnesium (1.7-2.8) mg/dL Total Bilirubin (0.2-1.0) mg/dL AST (10-42) IU/L ALT (10-60) IU/L Alkaline Phosphatase (42-121) IU/L Troponin I High Sens (2.3-19.7) ng/L B-Natriuretic Peptide 1519 H (5-100) pg/mL Total Protein (6.7-8.2) g/dL Albumin (3.2-5.5) g/dL Globulin (2.1-4.2) g/dL Albumin/Globulin Ratio (1.0-2.2) Lipase (22-51) U/L Nasal Adenovirus (PCR) NOT DETECTED Nasal B. parapertussis DNA (PCR) NOT DETECTED Nasal Coronavir 229E PCR NOT DETECTED Nasal Coronavir HKU1 PCR NOT DETECTED Nasal Coronavir NL63 PCR NOT DETECTED Nasal Coronavir OC43 PCR NOT DETECTED Nasal Enterovir/Rhinovir PCR NOT DETECTED Nasal Influenza B PCR NOT DETECTED Nasal Influenza A PCR NOT DETECTED Nasal Parainfluen 1 PCR NOT DETECTED Nasal Parainfluen 2 PCR NOT DETECTED Nasal Parainfluen 3 PCR NOT DETECTED Nasal Parainfluen 4 PCR NOT DETECTED Nasal RSV (PCR) NOT DETECTED Nasal B.pertussis DNA PCR NOT DETECTED Nasal C.pneumoniae (PCR) NOT DETECTED Pillo Human Metapneumo PCR NOT DETECTED Nasal M.pneumoniae (PCR) NOT DETECTED Nasal SARS-CoV-2 (PCR) NOT DETECTED - Diagnostic Imaging Diagnostic Imaging Results: positive: Final report reviewed Diagnostic Imaging Comments: 07/02 chest x-ray unchanged from yesterday, suggestive of CHF and pulmonary edema. More focal opacity on the left lung base, underlying pneumonia not excluded EKG with atrial fibrillation and RBBB. Unchanged from 07/01. ABX Reporting Has patient been on IV antibiotics over the past 48 hours?: Yes Sepsis Event Note (H) - Evaluation Current Stage of Sepsis: Ruled out Assessment/Plan - Problem List (1) SRINIVAS (acute kidney injury) Impression: Stable. Creatinine remains 3.1. Urine output 400ml/overnight, much property management intern than yesterday. He may need more fluid boluses but this will have to be done slowly given his history of congestive heart failure and increasing BNP as well. On review of his records from [facility] and [facility], he has stage 3 CKD. In the [facility]rology [facility] note from 2018 his creatinine was 1.4-1.5 and in [facility] from a visit to the ER here in March 2020 it was still 1.4. This morning his sodium remained low at 132 and on recheck this afternoon is 124. His potassium is 4.5. Creatinine remains 3.1 but his BUN is trending down to 58 from 63 on admission. I have changed his fluids to D5NS@75ml/hr and will continue to monitor. -Indwelling aguilera catheter -Strict I/Os -Daily BMP (2) Urinary retention due to benign prostatic hyperplasia Impression: Stable. He had 400ml/urine out overnight. It is a property management intern yellow/tea color today. Will plan to leave the aguilera in place until he follows up with a Urologist. He remains afebrile but has developed a leukocytosis. Will plan to get a UA and culture and start him on antibiotics to cover a UTI given he now has an indwelling catheter and he was likely retaining urine for quite awhile before it was drained. Outside records were obtained from both [facility] and [facility]. 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 -Continue the indwelling aguilera catheter, will plan to d/c home with it until follow up with a urologist -Follow up with Urology- Pt needs a referral to a local urologist (3) BPH (benign prostatic hyperplasia) Impression: See problem #2. Will resume Flomax when medication reconciliation has been completed. Qualifiers: Lower urinary tract symptom presence: symptoms present Lower urinary tract symptom detail: urinary retention Qualified Code(s): N40.1 - Benign prostatic hyperplasia with lower urinary tract symptoms; R33.8 - Other retention of urine (4) UTI (urinary tract infection) Impression: This is new today and felt to be related to his urinary retention. He has developed a new leukocytosis but remains afebrile and denies flank pain. A UA was sent prior to starting antibiotics, culture is pending. The UA shoes a large amount of occult blood in the urine, possibly related to the obstruction. He has Urine WBC >25 and a large amount of leukocyte esterase. He was started on Levoquin po daily, renally dosed by pharmacy. Will plan for a 3 day course given this an uncomplicated UTI that is likely related to the urine retention. -Levoquin 250mg/48 hours, renal dosing, x3 doses -Daily CBC Qualifiers: Urinary tract infection type: site unspecified Hematuria presence: with hematuria Qualified Code(s): N39.0 - Urinary tract infection, site not specified; R31.9 - Hematuria, unspecified (5) Hypoglycemia Impression: Reportedly diagnosed with diabetes 1 year ago and was started on Glimepiride and Trulicity. They do not check his blood sugars regularly. He was given Trulicity 06/30 (it is a weekly shot). Later in the day was not acting himself and sounding more congested so his called EMS. Their check showed a BG of 27. In the ED it was 32. Per his he has not had known episodes of hypoglycemia until admission. Overnight he had multiple episodes of hypoglycemia ranging from 20-80. He was given multiple amps of D50 and then started on D10W@125ml/hr. This morning he continued to have episodes of hypoglycemia from 40-50s, requiring more D50 amps. The hospital is running low on these medications and we may have to transition to Glucoside from [employer] used for TPN/PPN until the formulary is restocked, but for now we have been able to use the amps of D50. By the late afternoon his sugars have stayed in the 200s for over an hour. His sodium has decreased so I changed his fluids from D10W to D5NS and will continue to monitor. It is not clear how long he will be having these episodes of hypoglycemia given the longer acting nature of the meds he was taking at home so we will continue to monitor his blood glucose hourly until he has remained stable for a few hours at a time. Has not been eating much today due to not feeling well. (6) Type 2 diabetes mellitus Impression: Reportedly diagnosed with diabetes 1 year ago and was started on Glimepiride (it was noted incorrectly in my H&P to be Glyburide) and Trulicity. They do not check his blood sugars regularly. He was given Trulicity yesterday (it is a w eekly shot). His A1C on admission was 5.5. I have stopped his medications and will have him follow up with his PCP given the A1C. He likely does not need to resume them. He denied numbness and tingling in his hands and feet. He does have a history of glaucoma but could not tell me when he last had his eyes examined. See the above problem for hypoglycemia history and management. -BG hourly while monitoring hypoglycemia, then resume BG ac/hs with SSI if needed Qualifiers: Diabetes mellitus care home insulin use: without exterminator helper use Diabetes pauly macario complication status: with hypoglycemia Diabetes mellitus complication detail: without coma Qualified Code(s): E11.649 - Type 2 diabetes mellitus with hypoglycemia without coma (7) General weakness Impression: Pt uses a walker at baseline. Fell at home in March 2021 which resulted in a left chest wall contusion but has not fallen since. His reports he has generally gotten weaker since then. He feels that over the past week he has gotten weaker from his baseline. Will plan to have PT evaluate him when able. -PT evaluation (8) History of coronary artery disease Impression: Stable. He has a history of coronary artery disease s/p CABG 1987. He has a pacemaker, the device card is in his wallet. Currently his rhythm is atrial fibrillation but it is rate controlled. On review of his records from [facility] and [facility] this appears to be a long standing issue. Admission EKG was unchanged from the previous EKG in [facility] from 2019. Another EKG was obtained today due to his complaints of substernal chest pain, non-radiating. It is also unchanged from yesterday, showing Afib with a R BBB. His chest pain appears to have resolved as he was sleeping on reassessment. Of note he had a brief, self-limiting run of V-TACH this morning correlating with the time he complained of chest pain. This has not occurred since. He takes multiple cardiac meds at home and I restarted the Carvedilol and Losartan. Blood press ures have been 90-100s / 50-70s. Heart rates have been 60-97. His troponin and BNP are elevated and slightly increased today but this is likely due to his CHF. -Continue to monitor (9) History of atrial fibrillation Impression: Stable. He is followed by Dr. Brown at [facility]. He is rate controlled and also has a pacemaker. From review of his records that were obtained from [facility] and [facility] he has a long-standing history of atrial fibrillation. He is on aspirin. Heart rates have been 60s-90s. After a brief episode of chest pain he has not complained of this since. I have placed him on telemetry for continued monitoring given his earlier episode of chest pain and run of VTACH. (10) Acute on chronic congestive heart failure Impression: He was seen in the ED in June 2019 and felt to be having an episode of acute on chronic CHF. An EF obtained via [facility] in June 2020 shows an LVEF of 22%. His diuretics were recently decreased per his 's report. Currently he does not have lower extremity edema but does have audible wheezes and crackles. CXR findings reveal CHF with cardiomegaly, pulmonary vascular congestion, interstitial edema, pulmonary edema, and likely small left-sided pleural effusion. Minimal change on repeat x-ray today. Underlying infectious process not completely excluded. He was started on Levaquin for treatment of a UTI but this should also cover community acquired pneumonia if needed. He is afebrile but now does have a leukocytosis which is more likely urine related than upper respiratory. His BNP was 1500 on admission and has increased to 1628. His troponin was 38.5 on admission and slightly increased to 43.5 today. Today he does report feeling slightly short of breath but is saturating 94-95% on room air. Initially on admission his saturations were 98-100% and I am concerned he is getting volume overloaded. His Carvedilol and Losartan were restarted yesterday. I have added 20mg IV Lasix BID to try to get the excess fluid off and will monitor the BMP to make sure it does not further injure his kidneys. -Daily weights -Strict I/Os -Lasix 20mg IV BID Qualifiers: Heart failure type: unspecified Qualified Code(s): I50.9 - Heart failure, unspecified (11) V-tach Impression: Pt started vomiting this morning and then complained of chest pain. He had a brief self-limiting run of VTACH and now is back in atrial fibrillation. On review of his outpatient records I did not see a history of this. EKG obtained later this morning showed atrial fibrillation with RBBB. Troponin was slightly increased at 43.5 but not much increased from yesterday and more likely related to his CHF than ischemia. Per discussion with Pt and his separately yesterday he wishes to be a DNR. 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 He does not have residual deficits though does get occasionally confused. He ambulates with a walker and is able to perform his ADLs at home. Denies headache and is neurologically intact today. (13) Vomiting Impression: He has had nausea with 2 episodes of vomiting today. This is likely due to a combination of his hypoglycemia and a large amount of orange juice he was given to try to increase his sugars. He was given 2 doses of Zofran without relief so I have added Reglan. After receiving the Reglan he fell asleep and appears to be comfortable. -Zofran and Reglan PRN n/v Qualifiers: Vomiting type: bilious vomiting Nausea presence: with nausea Qualified Code(s): R11.14 - Bilious vomiting (14) Hyponatremia Impression: On admission his Na was 134. This morning it was 132. After receiving multiple doses of D50 this morning and IVF with D10W, his sodium this afternoon was 124. I have stopped the D10W as his blood glucose is in the 200s and started him on D5NS @ 75ml/hr. Unfortunately the treatment of the hypoglycemia is driving the hyponatremia, and the fluids will need to be given slowly as he appears to also be having a heart failure exacerbation. Will continue to monitor the BMP and BNP and tailor fluids and meds as needed.
[2021-07-02] MEDS: INSULIN ASPART 300 UNIT/3 ML PEN SUBQ SCH (08:04)
[2021-07-02] MEDS: DEXTROSE 10% 1,000 ML IV SCH ×2 (08:18→16:04)
[2021-07-02] MEDS: ASPIRIN CHEW 81 MG TABLET PO SCH (08:20)
[2021-07-02] MEDS: carvediloL 3.125 MG TABLET PO SCH ×2 (08:21→20:20)
[2021-07-02] MEDS: LOSARTAN 50 MG TABLET PO SCH (08:24)
[2021-07-02] MEDS ORDERED: FUROSEMIDE 20 MG TABLET PO SCH (09:00)
[2021-07-02] MEDS: TAMSULOSIN 0.4 MG CAPSULE PO SCH (09:17)
[2021-07-02 09:29] LABS: BILIRUBIN,URINE NEGATIVE (NEGATIVE); GLUCOSE, URINE (UA) NEGATIVE (NEGATIVE); KETONES,URINE (UA) NEGATIVE (NEGATIVE); LEUKOCYTE ESTERASE, URINE LARGE (NEGATIVE); NITRITE,URINE NEGATIVE (NEGATIVE); OCCULT BLOOD,URINE LARGE (NEGATIVE); PROTEIN,URINE 30 mg/dL (NEGATIVE); UROBILINOGEN,URINE 0.2 (NORMAL) E.U./dL (NORMAL)
[2021-07-02 09:30] LABS: CLARITY,URINE SL. CLOUDY (CLEAR)
[2021-07-02 09:39] LABS: BACTERIA,URINE Few /HPF (None Seen); SQUAMOUS EPITHELIAL CELL,UR RARE Squamous (<= Few); WBC,URINE >25 /HPF (0-3)
--- NOTE | 2021-07-02 09:45 | XRAY Report ---
PROCEDURE: Chest 1 View X-Ray INDICATIONS: wheezing, new leukocytosis, hx of CHF TECHNIQUE: One view of the chest was acquired. COMPARISON: 07/01/2021 FINDINGS: Surgical changes and devices: Stable appearance of left chest wall single lead cardiac device. Postsu rgical changes of coronary revascularization. Surgical clips noted overlying the upper abdomen.. Lungs and pleura: There is prominence of the pulmonary vasculature. Diffuse interstitial prominence. Likely small left-sided pleural effusion. Basilar opacities. This is more prominent at the left lung base. Mediastinum: Mediastinal contours appear normal. Heart size is enlarged. Bones and chest wall: No suspicious bony lesions. Overlying soft tissues appear unremarkable. IMPRESSION: Unchanged findings from recent chest radiograph suggestive of CHF and pulmonary edema. Given more foc al opacity of the left lung base, underlying pneumonia is not excluded. Reviewed by: Javi Wolf DO on 07/02/2021 8:43 AM [facility] Approved by: Javi Wolf DO on 07/02/2021 8:43 AM [facility] Station ID: [id number]
[2021-07-02] MEDS ORDERED: levoFLOXacin 250 MG TABLET PO SCH (10:00)
[2021-07-02] MEDS: FUROSEMIDE 20 MG/2 ML VIAL IVP SCH ×2 (10:37→14:32)
[2021-07-02] MEDS: SODIUM CHLORIDE FLUSH 0.9% 10 ML SYRINGE IVP SCH ×2 (10:38→16:05)
[2021-07-02 13:32] LABS: ESTIMATED AVERAGE GLUCOSE 103 mg/dL (70-100); HEMOGLOBIN A1c% 5.2 % (4.27-6.07)
--- NOTE | 2021-07-02 13:45 | PHARMACY PROGRESS NOTE ---
- Best Possible Medication History Admit Date and Time: 07/01/21 1257 Processed by: Nursing Medication History completed: Yes Patient Interview: Completed Secondary Source(s): Pharmacy records, Insurance records As the person ultimately responsible for medication therapy, providers are able to order a medication from an existing home medication list in [facility] via the "Reconcile Routine" prior to Confirmation of that medication by manager support services. Such practice is discouraged except when the physician, in their clinical judgment, deems that a medical need exists for a medication without regard to previous use.
[2021-07-02] MEDS: SODIUM CHLORIDE FLUSH 0.9% 10 ML SYRINGE IVP PRN (14:32)
[2021-07-02] MEDS: METOCLOPRAMIDE 10 MG/2 ML VIAL IVP PRN (14:32)
[2021-07-02 16:06] LABS: CALCIUM 8.6 mg/dL (8.5-10.3); CREATININE 3.1 mg/dL (0.6-1.2); POTASSIUM 4.5 mmol/L (3.5-5.0)
[2021-07-02] MEDS ORDERED: DEXTROSE 10% 1,000 ML IV SCH (16:14)
[2021-07-02] MEDS ORDERED: DEXTROSE 5%-0.9% NACL 1,000 ML IV SCH (17:00)
[2021-07-02] MEDS: SODIUM CHLORIDE 0.9% 1,000 ML IV SCH (19:10)
[2021-07-02] MEDS: ATORVASTATIN 40 MG TABLET PO SCH (20:19)
[2021-07-02 21:19] LABS: CALCIUM 8.7 mg/dL (8.5-10.3); CREATININE 3.1 mg/dL (0.6-1.2); POTASSIUM 4.5 mmol/L (3.5-5.0)
[2021-07-03] MEDS: ONDANSETRON 4 MG/2 ML VIAL IVP PRN (00:08)
[2021-07-03] MEDS: METOCLOPRAMIDE 10 MG/2 ML VIAL IVP PRN ×2 (00:50→09:33)
[2021-07-03] MEDS: SODIUM CHLORIDE FLUSH 0.9% 10 ML SYRINGE IVP SCH ×3 (01:13→17:28)
[2021-07-03 06:04] LABS: BASOPHILS % (AUTO) 0.4 %; EOSINOPHILS # (AUTO) 0.1 10^3/uL (0.0-0.7); HGB - HEMOGLOBIN 11.2 g/dL (14.0-18.0); LYMPHOCYTES % (AUTO) 9.2 %; MEAN CORPUSCULAR HEMOGLOBIN 29.9 pg (27.0-31.0); MEAN CORPUSCULAR HGB CONC 32.9 g/dL (32.0-36.0); MEAN CORPUSCULAR VOLUME 90.7 fL (80.0-94.0); MEAN PLATELET VOLUME 10.2 fL (7.4-11.4); MONOCYTES # (AUTO) 0.7 10^3/uL (0.0-1.0); MONOCYTES % (AUTO) 6.9 %; NEUTROPHILS # (AUTO) 8.7 10^3/uL (1.5-6.6); NEUTROPHILS % (AUTO) 82.2 %; PLT - PLATELET COUNT 195 10^3/uL (130-450); RED BLOOD COUNT 3.75 10^6/uL (4.70-6.10); WHITE BLOOD COUNT 10.6 x10^3/uL (4.8-10.8)
--- NOTE | 2021-07-03 06:05 | PROVIDER PROGRESS NOTE ---
Assessment/Plan - Problem List (1) SRINIVAS (acute kidney injury) Assessment/Plan: Renal function slightly worse. Creatinine 3.2 and GFR 19. Etiology: This could be secondary to urinary retention related to BPH, UTI and/or CHF exacerbation. Patient has a Winters catheter in place. Levaquin to 50 mg p.o. every 48 hours. He is being actively diuresed with Lasix 20 mg IV twice daily. Echocardiogram pending (2) Hypoglycemia Assessment/Plan: Hypoglycemia was due to patient's medication. At home he is on Trulicity and glimepiride. These are currently on hold. Blood glucose this morning was 160. We will continue to monitor. Hold off on administering any insulin for the time being. (3) Hyponatremia Assessment/Plan: Improving. This is likely secondary to hypovolemia with CHF however it was likely exacerbated by administration of D50. Sodium improved from 124 yesterday up to 129 today. Patient is being diuresed Will continue to monitor. Anticipating further improvement (4) UTI (urinary tract infection) Qualifiers: Urinary tract infection type: site unspecified Hematuria presence: with hematuria Qualified Code(s): N39.0 - Urinary tract infection, site not specified; R31.9 - Hematuria, unspecified Assessment/Plan: Levaquin 250 mg p.o. every 48 hours. (5) Urinary retention due to benign prostatic hyperplasia Assessment/Plan: Winters catheter in place. On tamsulosin 0.4 mg p.o. daily (6) V-tach Assessment/Plan: Nonsustained. Patient asymptomatic. Will check electrolytes and replace accordingly. (7) Vomiting Qualifiers: Vomiting type: bilious vomiting Nausea presence: with nausea Qualified Code(s): R11.14 - Bilious vomiting Assessment/Plan: Zofran and metoclopramide ordered as needed. (8) Acute on chronic congestive heart failure Qualifiers: Heart failure type: unspecified Qualified Code(s): I50.9 - Heart failure, unspecified Assessment/Plan: BNP this morning is 1500. On Lasix 20 mg IV twice daily. 2D echocardiogram ordered. On Coreg 3.125 mg p.o. twice daily. (9) BPH (benign prostatic hyperplasia) Qualifiers: Lower urinary tract symptom presence: symptoms present Lower urinary tract symptom detail: urinary retention Qualified Code(s): N40.1 - Benign prostatic hyperplasia with lower urinary tract symptoms; R33.8 - Other retention of urine Assessment/Plan: Winters catheter in place. Tamsulosin 0.4 mg p.o. daily. (10) Type 2 diabetes mellitus Qualifiers: Diabetes mellitus usp insulin use: without usp use Diabetes mellitus complication status: with hypoglycemia Diabetes mellitus complication detail: without coma Qualified Code(s): E11.649 - Type 2 diabetes mellitus with hypoglycemia without coma Assessment/Plan: At home patient is on Trulicity and glimepiride. However this is currently on hold due to significant hypoglycemia. If patient has persistently high blood glucose will use short acting insulin. - Current Meds Current Meds: Current Medications Generic Name Dose Route Start Last Admin Trade Name Freq PRN Reason Stop Dose Admin Aspirin 81 mg 07/02/21 09:00 07/02/21 08:20 Aspirin Chew 81 Mg Tablet PO 81 mg DAILY JONNATHAN Administration Atorvastatin Calcium 80 mg 07/02/21 21:00 07/02/21 20:19 Atorvastatin 40 Mg Tablet PO 80 mg QPM JONNATHAN Administration Carvedilol 3.125 mg 07/01/21 21:00 07/02/21 20:20 Carvedilol 3.125 Mg Tablet PO Not Given BID JONNATHAN Furosemide 20 mg 07/02/21 10:00 07/02/21 14:32 Furosemide 20 Mg/2 Ml Vial IVP 20 mg BIDDIURETIC JONNATHAN Administration Sodium Chloride 1,000 mls @ 83.333 mls/hr 07/02/21 19:00 07/02/21 19:10 Normal Saline 0.9% IV 83.333 mls/hr .Q12H JONNATHAN Administration Losartan Potassium 25 mg 07/02/21 09:00 07/02/21 08:24 Losartan 50 Mg Tablet PO Not Given DAILY JONNATHAN Metoclopramide HCl 5 mg 07/02/21 13:36 07/03/21 00:50 Metoclopramide 10 Mg/2 Ml Vial IVP 5 mg Q6HR PRN Administration Nausea / Vomiting Ondansetron HCl 4 mg 07/01/21 12:57 07/02/21 10:45 Ondansetron Odt 4 Mg Tablet TL 4 mg Q6HR PRN Administration Nausea / Vomiting Ondansetron HCl 4 mg 07/01/21 12:57 07/03/21 00:08 Ondansetron 4 Mg/2 Ml Vial IVP 4 mg Q6HR PRN Administration Nausea / Vomiting Sodium Chloride 10 ml 07/01/21 12:57 07/02/21 14:32 Sodium Chloride Flush 0.9% 10 Ml Syringe IVP 20 ml PRN PRN Administration NEEDED PER PROVIDER ORDERS Sodium Chloride 10 ml 07/01/21 17:00 07/03/21 01:13 Sodium Chloride Flush 0.9% 10 Ml Syringe IVP Not Given 0100,0900,1700 JONNATHAN Tamsulosin HCl 0.4 mg 07/02/21 09:00 07/02/21 09:17 Tamsulosin 0.4 Mg Capsule PO 0.4 mg DAILY JONNATHAN Administration - Lab Result Fish Bone Diagrams: 07/03/21 05:35 07/03/21 05:35 Subjective - Subjective Patient Reports: Other (He was resting comfortably in bed at time of exam. Denied chest pain, dyspnea, abdominal pain, nausea or vomiting. He has been nauseous and vomited at night. He also has audible wheezing.) Objective Vital Signs: Vital Signs - 24 hr 07/02/21 07/02/21 07/02/21 08:27 08:30 15:51 Temperature 36.4 C L 36.4 C L Heart Rate [ 84 73 Brachial] Heart Rate [ 86 Monitoring electrodes] Respiratory 16 16 Rate Blood Pressure 108/70 101/47 L [Right Brachial artery] O2 Saturation 95 94 07/02/21 07/02/21 07/03/21 20:18 23:38 03:17 Temperature 36.3 C L 36.5 C 36.6 C Heart Rate [ 76 82 86 Brachial] Heart Rate [ Monitoring electrodes] Respiratory 16 16 18 Rate Blood Pressure 95/51 L 94/47 L 100/50 L [Right Brachial artery] O2 Saturation 99 96 97 Oxygen O2 Source Room air I&O (Last 24 Hrs): Intake and Output Totals x24h 07/01/21 07/02/21 07/03/21 23:59 23:59 23:59 Intake Total 1337.5 3663.833 Output Total 3400 1500 Balance -2062.5 2163.833 General: Alert, Oriented x3, No acute distress HEENT: PERRLA, EOMI Neck: Supple, No JVD Neuro: Alert, Oriented Times 3 Cardiovascular: Regular rate Respiratory: Chest non-tender, No respiratory distress, Wheezes Abdomen: Normal bowel sounds, Soft, No tenderness, No masses Extremities: No clubbing, No cyanosis, No edema Skin: No rashes, No breakdown - Results Results: Laboratory Results WBC 11.6 x10^3/uL (4.8-10.8) H 07/02/21 05:15 RBC 3.65 10^6/uL (4.70-6.10) L 07/02/21 05:15 Hgb 10.8 g/dL (14.0-18.0) L 07/02/21 05:15 Hct 33.3 % (42.0-52.0) L 07/02/21 05:15 MCV 91.2 fL (80.0-94.0) 07/02/21 05:15 MCH 29.6 pg (27.0-31.0) 07/02/21 05:15 MCHC 32.4 g/dL (32.0-36.0) 07/02/21 05:15 RDW 19.3 % (12.0-15.0) H 07/02/21 05:15 Plt Count 229 10^3/uL (130-450) 07/02/21 05:15 MPV 10.3 fL (7.4-11.4) 07/02/21 05:15 Neut # (Auto) 8.9 10^3/uL (1.5-6.6) H 07/02/21 05:15 Lymph # (Auto) 1.0 10^3/uL (1.5-3.5) L 07/02/21 05:15 [place] # (Auto) 1.1 10^3/uL (0.0-1.0) H 07/02/21 05:15 Eos # (Auto) 0.5 10^3/uL (0.0-0.7) 07/02/21 05:15 Baso # (Auto) 0.1 10^3/uL (0.0-0.1) 07/02/21 05:15 Absolute Nucleated RBC 0.00 x10^3/uL 07/02/21 05:15 Nucleated RBC % 0.0 /100WBC 07/02/21 05:15 Sodium 128 mmol/L (135-145) L 07/02/21 20:56 Potassium 4.5 mmol/L (3.5-5.0) 07/02/21 20:56 Chloride 96 mmol/L (101-111) L 07/02/21 20:56 Carbon Dioxide 19 mmol/L (21-32) L 07/02/21 20:56 Anion Gap 13.0 (6-13) 07/02/21 20:56 BUN 60 mg/dL (6-20) H 07/02/21 20:56 Creatinine 3.1 mg/dL (0.6-1.2) H 07/02/21 20:56 Estimated GFR (MDRD) 19 (>89) L 07/02/21 20:56 Glucose 288 mg/dL (70-100) H 07/02/21 20:56 Estimat Average Glucose 103 mg/dL (70-100) H 07/02/21 05:15 Hemoglobin A1c % 5.2 % (4.27-6.07) 07/02/21 05:15 Lactic Acid 1.3 mmol/L (0.5-2.2) 07/01/21 12:08 Calcium 8.7 mg/dL (8.5-10.3) 07/02/21 20:56 Magnesium 2.4 mg/dL (1.7-2.8) 07/01/21 10:29 Total Bilirubin 1.4 mg/dL (0.2-1.0) H 07/01/21 10:29 AST 24 IU/L (10-42) 07/01/21 10:29 ALT 17 IU/L (10-60) 07/01/21 10:29 Alkaline Phosphatase 126 IU/L (42-121) H 07/01/21 10:29 Troponin I High Sens 39.6 ng/L (2.3-19.7) H* 07/03/21 01:34 B-Natriuretic Peptide 1628 pg/mL (5-100) H 07/02/21 05:15 Total Protein 6.6 g/dL (6.7-8.2) L 07/01/21 10:29 Albumin 3.1 g/dL (3.2-5.5) L 07/01/21 10:29 Globulin 3.5 g/dL (2.1-4.2) 07/01/21 10:29 Albumin/Globulin Ratio 0.9 (1.0-2.2) L 07/01/21 10:29 Lipase 26 U/L (22-51) 07/01/21 10:29 Urine Color YELLOW 07/02/21 08:25 Urine Clarity SL. CLOUDY (CLEAR) 07/02/21 08:25 Urine pH 5.0 PH (5.0-7.5) 07/02/21 08:25 Ur Specific [place] 1.010 (1.002-1.030) 07/02/21 08:25 Urine Protein 30 mg/dL (NEGATIVE) H 07/02/21 08:25 Urine Glucose (UA) NEGATIVE mg/dL (NEGATIVE) 07/02/21 08:25 Urine Ketones NEGATIVE mg/dL (NEGATIVE) 07/02/21 08:25 Urine Occult Blood LARGE (NEGATIVE) H 07/02/21 08:25 Urine Nitrite NEGATIVE (NEGATIVE) 07/02/21 08:25 Urine Bilirubin NEGATIVE (NEGATIVE) 07/02/21 08:25 Urine Urobilinogen 0.2 (NORMAL) E.U./dL (NORMAL) 07/02/21 08:25 Ur Leukocyte Esterase LARGE (NEGATIVE) H 07/02/21 08:25 Urine RBC 6-10 /HPF (0-5) H 07/02/21 08:25 Urine WBC >25 /HPF (0-3) H 07/02/21 08:25 Ur Squamous Epith Cells RARE Squamous (<= Few) 07/02/21 08:25 Urine Bacteria Few /HPF (None Seen) 07/02/21 08:25 Ur Microscopic Review INDICATED 07/02/21 08:25 Urine Culture Comments INDICATED 07/02/21 08:25 Nasal Adenovirus (PCR) NOT DETECTED 07/01/21 10:28 Nasal B. parapertussis DNA (PCR) NOT DETECTED 07/01/21 10:28 Nasal Coronavir 229E PCR NOT DETECTED 07/01/21 10:28 Nasal Coronavir HKU1 PCR NOT DETECTED 07/01/21 10:28 Nasal Coronavir NL63 PCR NOT DETECTED 07/01/21 10:28 Nasal Coronavir OC43 PCR NOT DETECTED 07/01/21 10:28 Nasal Enterovir/Rhinovir PCR NOT DETECTED 07/01/21 10:28 Nasal Influenza B PCR NOT DETECTED 07/01/21 10:28 Nasal Influenza A PCR NOT DETECTED 07/01/21 10:28 Nasal Parainfluen 1 PCR NOT DETECTED 07/01/21 10:28 Nasal Parainfluen 2 PCR NOT DETECTED 07/01/21 10:28 Nasal Parainfluen 3 PCR NOT DETECTED 07/01/21 10:28 Nasal Parainfluen 4 PCR NOT DETECTED 07/01/21 10:28 Nasal RSV (PCR) NOT DETECTED 07/01/21 10:28 Nasal B.pertussis DNA PCR NOT DETECTED 07/01/21 10:28 Nasal C.pneumoniae (PCR) NOT DETECTED 07/01/21 10:28 [place] Human Metapneumo PCR NOT DETECTED 07/01/21 10:28 Nasal M.pneumoniae (PCR) NOT DETECTED 07/01/21 10:28 Nasal SARS-CoV-2 (PCR) NOT DETECTED 07/01/21 10:28 Sepsis Event Note (H) - Evaluation Current Stage of Sepsis: Ruled out ABX Reporting Has patient been on IV antibiotics over the past 48 hours?: No
[2021-07-03 06:09] LABS: CALCIUM 8.9 mg/dL (8.5-10.3); CREATININE 3.2 mg/dL (0.6-1.2); POTASSIUM 4.3 mmol/L (3.5-5.0)
[2021-07-03 07:18] LABS: MAGNESIUM 2.3 mg/dL (1.7-2.8); PHOSPHORUS 3.4 mg/dL (2.5-4.6)
[2021-07-03] MEDS: FUROSEMIDE 20 MG/2 ML VIAL IVP SCH ×2 (07:25→15:03)
[2021-07-03] MEDS: SODIUM CHLORIDE 0.9% 1,000 ML IV SCH ×2 (07:26→19:25)
[2021-07-03] MEDS: TAMSULOSIN 0.4 MG CAPSULE PO SCH (09:33)
[2021-07-03] MEDS: carvediloL 3.125 MG TABLET PO SCH ×2 (09:33→20:09)
[2021-07-03] MEDS: ASPIRIN CHEW 81 MG TABLET PO SCH (09:34)
[2021-07-03] MEDS: LOSARTAN 50 MG TABLET PO SCH (09:37)
[2021-07-03] MEDS: ATORVASTATIN 40 MG TABLET PO SCH (20:09)
[2021-07-04] MEDS: SODIUM CHLORIDE FLUSH 0.9% 10 ML SYRINGE IVP SCH ×5 (00:56→23:42)
[2021-07-04 05:00] LABS: BASOPHILS % (AUTO) 0.4 %; EOSINOPHILS # (AUTO) 0.2 10^3/uL (0.0-0.7); EOSINOPHILS % (AUTO) 1.9 %; LYMPHOCYTES % (AUTO) 10.9 %; MEAN CORPUSCULAR HEMOGLOBIN 30.1 pg (27.0-31.0); MEAN CORPUSCULAR HGB CONC 33.3 g/dL (32.0-36.0); MEAN CORPUSCULAR VOLUME 90.2 fL (80.0-94.0); MONOCYTES # (AUTO) 0.8 10^3/uL (0.0-1.0); NEUTROPHILS % (AUTO) 77.5 %; PLT - PLATELET COUNT 203 10^3/uL (130-450); RED BLOOD COUNT 3.66 10^6/uL (4.70-6.10); RED CELL DISTRIBUTION WIDTH 18.9 % (12.0-15.0)
[2021-07-04 05:08] LABS: CALCIUM 8.7 mg/dL (8.5-10.3); CREATININE 3.1 mg/dL (0.6-1.2); POTASSIUM 3.9 mmol/L (3.5-5.0)
[2021-07-04] MEDS: FUROSEMIDE 20 MG/2 ML VIAL IVP SCH ×2 (05:31→14:51)
[2021-07-04] MEDS: METOCLOPRAMIDE 10 MG/2 ML VIAL IVP PRN (05:31)
[2021-07-04] MEDS: SODIUM CHLORIDE FLUSH 0.9% 10 ML SYRINGE IVP PRN ×2 (05:32→14:51)
--- NOTE | 2021-07-04 08:01 | PROVIDER PROGRESS NOTE ---
Assessment/Plan - Problem List (1) SRINIVAS (acute kidney injury) Assessment/Plan: No change in renal function Creatinine 3.1 and GFR 19. Etiology: This could be secondary to urinary retention related to BPH, UTI and/or CHF exacerbation. Patient has a Winters catheter in place. Levaquin 250 mg p.o. every 48 hours. He is being actively diuresed with Lasix 20 mg IV twice daily. Echocardiogram pending (2) Hypoglycemia Assessment/Plan: Hypoglycemia was due to patient's medication. At home he is on Trulicity and glimepiride. These are currently on hold. Plan to discontinue Trulicity and glimepiride upon discharge Hemoglobin A1c was 5.2 Blood glucose this morning was 160. We will continue to monitor. Hold off on administering any insulin for the time being. (3) Hyponatremia Assessment/Plan: Improving. This is likely secondary to hypervolemia with CHF however it was likely exacerbated by administration of D50. Sodium improved from 129 yesterday up to 134 today. Patient is being diuresed Will continue to monitor. Anticipating further improvement (4) UTI (urinary tract infection) Qualifiers: Urinary tract infection type: site unspecified Hematuria presence: with hematuria Qualified Code(s): N39.0 - Urinary tract infection, site not specified; R31.9 - Hematuria, unspecified Assessment/Plan: Levaquin 250 mg p.o. every 48 hours. (5) Urinary retention due to benign prostatic hyperplasia Assessment/Plan: Winters catheter in place. On tamsulosin 0.4 mg p.o. daily (6) V-tach Assessment/Plan: Nonsustained. Patient asymptomatic. Will check electrolytes and replace accordingly. (7) Vomiting Qualifiers: Vomiting type: bilious vomiting Nausea presence: with nausea Qualified Code(s): R11.14 - Bilious vomiting (8) Acute on chronic congestive heart failure Qualifiers: Heart failure type: unspecified Qualified Code(s): I50.9 - Heart failure, unspecified Assessment/Plan: BNP this morning is 2000. On Lasix 20 mg IV twice daily. 2D echocardiogram ordered. Patient's EF in 2019 was 22 On Coreg 3.125 mg p.o. twice daily. (9) BPH (benign prostatic hyperplasia) Qualifiers: Lower urinary tract symptom presence: symptoms present Lower urinary tract symptom detail: urinary retention Qualified Code(s): N40.1 - Benign prostatic hyperplasia with lower urinary tract symptoms; R33.8 - Other retention of urine Assessment/Plan: Winters catheter in place. Tamsulosin 0.4 mg p.o. daily. (10) Type 2 diabetes mellitus Qualifiers: Diabetes mellitus shelter insulin use: without shelter use Diabetes mellitus complication status: with hypoglycemia Diabetes mellitus complication detail: without coma Qualified Code(s): E11.649 - Type 2 diabetes mellitus with hypoglycemia without coma Assessment/Plan: At home patient is on Trulicity and glimepiride. However this is currently on hold due to significant hypoglycemia. Plan to discontinue Trulicity and glimepiride upon discharge. The patient's hemoglobin A1c was 5.2. - Current Meds Current Meds: Current Medications Generic Name Dose Route Start Last Admin Trade Name Freq PRN Reason Stop Dose Admin Acetaminophen 650 mg 07/01/21 12:57 07/04/21 05:31 Acetaminophen 325 Mg Tablet PO 650 mg Q4HR PRN Administration Pain 1 to 4 Aspirin 81 mg 07/02/21 09:00 07/03/21 09:34 Aspirin Chew 81 Mg Tablet PO 81 mg DAILY JONNATHAN Administration Atorvastatin Calcium 80 mg 07/02/21 21:00 07/03/21 20:09 Atorvastatin 40 Mg Tablet PO 80 mg QPM JONNATHAN Administration Carvedilol 3.125 mg 07/01/21 21:00 07/03/21 20:09 Carvedilol 3.125 Mg Tablet PO 3.125 mg BID JONNATHAN Administration Furosemide 20 mg 07/02/21 10:00 07/04/21 05:31 Furosemide 20 Mg/2 Ml Vial IVP 20 mg BIDDIURETIC JONNATHAN Administration Metoclopramide HCl 5 mg 07/02/21 13:36 07/04/21 05:31 Metoclopramide 10 Mg/2 Ml Vial IVP 5 mg Q6HR PRN Administration Nausea / Vomiting Ondansetron HCl 4 mg 07/01/21 12:57 07/02/21 10:45 Ondansetron Odt 4 Mg Tablet TL 4 mg Q6HR PRN Administration Nausea / Vomiting Ondansetron HCl 4 mg 07/01/21 12:57 07/03/21 00:08 Ondansetron 4 Mg/2 Ml Vial IVP 4 mg Q6HR PRN Administration Nausea / Vomiting Oxycodone HCl 5 mg 07/01/21 12:57 07/04/21 05:31 Oxycodone 5 Mg Tablet PO 5 mg Q4HR PRN Administration Pain 5 to 7 Sodium Chloride 10 ml 07/01/21 12:57 07/04/21 05:32 Sodium Chloride Flush 0.9% 10 Ml Syringe IVP 20 ml PRN PRN Administration NEEDED PER PROVIDER ORDERS Sodium Chloride 10 ml 07/01/21 17:00 07/04/21 01:50 Sodium Chloride Flush 0.9% 10 Ml Syringe IVP 10 ml 0100,0900,1700 [facility] Administration - Lab Result Fish Bone Diagrams: 07/05/21 05:48 07/05/21 05:48 - Additional Planning My Orders: My Active Orders 07/03/21 08:00 Echo Transthoracic Complete [ECHO] Routine Subjective - Subjective Patient Reports: Other (Patient was resting comfortably in bed at time of exam. Reported mild dyspnea. Mild wheezing noted as well. Denies chest pain, a bdominal pain, nausea, vomiting, fever or chills.) Objective Vital Signs: Vital Signs - 24 hr 07/03/21 07/03/21 07/03/21 09:35 11:15 12:08 Temperature Heart Rate [ Brachial] Heart Rate [ Monitoring electrodes] Heart Rate [ Sitting] Heart Rate [ Supine] Respiratory Rate Blood Pressure 99/54 L 91/60 127/77 [Right Brachial artery] Blood Pressure [Sitting] Blood Pressure [Supine] O2 Saturation 07/03/21 07/03/21 07/03/21 14:00 14:52 17:26 Temperature 36.5 C Heart Rate [ Brachial] Heart Rate [ 104 H Monitoring electrodes] Heart Rate [ 58 L Sitting] Heart Rate [ 65 Supine] Respiratory 18 Rate Blood Pressure 90/47 L 97/52 L [Right Brachial artery] Blood Pressure 98/49 L [Sitting] Blood Pressure 80/48 L [Supine] O2 Saturation 98 07/03/21 07/03/21 07/04/21 20:02 23:40 04:00 Temperature 36.4 C L 36.6 C 36.5 C Heart Rate [ 91 58 L 56 L Brachial] Heart Rate [ Monitoring electrodes] Heart Rate [ Sitting] Heart Rate [ Supine] Respiratory 17 20 18 Rate Blood Pressure 111/44 L 90/43 L 97/43 L [Right Brachial artery] Blood Pressure [Sitting] Blood Pressure [Supine] O2 Saturation 99 93 93 07/04/21 07:28 Temperature 36.4 C L Heart Rate [ 76 Brachial] Heart Rate [ Monitoring electrodes] Heart Rate [ Sitting] Heart Rate [ Supine] Respiratory 16 Rate Blood Pressure 94/40 L [Right Brachial artery] Blood Pressure [Sitting] Blood Pressure [Supine] O2 Saturation 97 Oxygen O2 Source Room air I&O (Last 24 Hrs): Intake and Output Totals x24h 07/02/21 07/03/21 07/04/21 23:59 23:59 23:59 Intake Total 3663.833 2621.385 281.943 Output Total 1500 1600 325 Balance 2163.833 1021.385 -43.057 General: Alert, Oriented x3, Cooperative, No acute distress HEENT: PERRLA, EOMI Neck: Supple, No JVD Neuro: Alert Cardiovascular: Regular rate Respiratory: Wheezes, Other (crackles) Abdomen: Normal bowel sounds, Soft, No tenderness, No masses Extremities: No clubbing, No cyanosis, No edema Skin: No rashes, No breakdown, No significant lesion - Results Results: Laboratory Results WBC 9.0 x10^3/uL (4.8-10.8) 07/04/21 04:51 RBC 3.66 10^6/uL (4.70-6.10) L 07/04/21 04:51 Hgb 11.0 g/dL (14.0-18.0) L 07/04/21 04:51 Hct 33.0 % (42.0-52.0) L 07/04/21 04:51 MCV 90.2 fL (80.0-94.0) 07/04/21 04:51 MCH 30.1 pg (27.0-31.0) 07/04/21 04:51 MCHC 33.3 g/dL (32.0-36.0) 07/04/21 04:51 RDW 18.9 % (12.0-15.0) H 07/04/21 04:51 Plt Count 203 10^3/uL (130-450) 07/04/21 04:51 MPV 10.0 fL (7.4-11.4) 07/04/21 04:51 Neut # (Auto) 7.0 10^3/uL (1.5-6.6) H 07/04/21 04:51 Lymph # (Auto) 1.0 10^3/uL (1.5-3.5) L 07/04/21 04:51 [place] # (Auto) 0.8 10^3/uL (0.0-1.0) 07/04/21 04:51 Eos # (Auto) 0.2 10^3/uL (0.0-0.7) 07/04/21 04:51 Baso # (Auto) 0.0 10^3/uL (0.0-0.1) 07/04/21 04:51 Absolute Nucleated RBC 0.00 x10^3/uL 07/04/21 04:51 Nucleated RBC % 0.0 /100WBC 07/04/21 04:51 Sodium 134 mmol/L (135-145) L 07/04/21 04:51 Potassium 3.9 mmol/L (3.5-5.0) 07/04/21 04:51 Chloride 103 mmol/L (101-111) 07/04/21 04:51 Carbon Dioxide 18 mmol/L (21-32) L 07/04/21 04:51 Anion Gap 13.0 (6-13) 07/04/21 04:51 BUN 57 mg/dL (6-20) H 07/04/21 04:51 Creatinine 3.1 mg/dL (0.6-1.2) H 07/04/21 04:51 Estimated GFR (MDRD) 19 (>89) L 07/04/21 04:51 Glucose 147 mg/dL (70-100) H 07/04/21 04:51 Estimat Average Glucose 103 mg/dL (70-100) H 07/02/21 05:15 Hemoglobin A1c % 5.2 % (4.27-6.07) 07/02/21 05:15 Lactic Acid 1.3 mmol/L (0.5-2.2) 07/01/21 12:08 Calcium 8.7 mg/dL (8.5-10.3) 07/04/21 04:51 Phosphorus 3.4 mg/dL (2.5-4.6) 07/03/21 01:30 Magnesium 2.3 mg/dL (1.7-2.8) 07/03/21 01:30 Total Bilirubin 1.4 mg/dL (0.2-1.0) H 07/01/21 10:29 AST 24 IU/L (10-42) 07/01/21 10:29 ALT 17 IU/L (10-60) 07/01/21 10:29 Alkaline Phosphatase 126 IU/L (42-121) H 07/01/21 10:29 Troponin I High Sens 39.6 ng/L (2.3-19.7) H* 07/03/21 01:34 B-Natriuretic Peptide 2000 pg/mL (5-100) H 07/04/21 04:51 Total Protein 6.6 g/dL (6.7-8.2) L 07/01/21 10:29 Albumin 3.1 g/dL (3.2-5.5) L 07/01/21 10:29 Globulin 3.5 g/dL (2.1-4.2) 07/01/21 10:29 Albumin/Globulin Ratio 0.9 (1.0-2.2) L 07/01/21 10:29 Lipase 26 U/L (22-51) 07/01/21 10:29 TSH 6.70 uIU/mL (0.34-5.60) H 07/04/21 04:51 Urine Color YELLOW 07/02/21 08:25 Urine Clarity SL. CLOUDY (CLEAR) 07/02/21 08:25 Urine pH 5.0 PH (5.0-7.5) 07/02/21 08:25 Ur Specific [place] 1.010 (1.002-1.030) 07/02/21 08:25 Urine Protein 30 mg/dL (NEGATIVE) H 07/02/21 08:25 Urine Glucose (UA) NEGATIVE mg/dL (NEGATIVE) 07/02/21 08:25 Urine Ketones NEGATIVE mg/dL (NEGATIVE) 07/02/21 08:25 Urine Occult Blood LARGE (NEGATIVE) H 07/02/21 08:25 Urine Nitrite NEGATIVE (NEGATIVE) 07/02/21 08:25 Urine Bilirubin NEGATIVE (NEGATIVE) 07/02/21 08:25 Urine Urobilinogen 0.2 (NORMAL) E.U./dL (NORMAL) 07/02/21 08:25 Ur Leukocyte Esterase LARGE (NEGATIVE) H 07/02/21 08:25 Urine RBC 6-10 /HPF (0-5) H 07/02/21 08:25 Urine WBC >25 /HPF (0-3) H 07/02/21 08:25 Ur Squamous Epith Cells RARE Squamous (<= Few) 07/02/21 08:25 Urine Bacteria Few /HPF (None Seen) 07/02/21 08:25 Ur Microscopic Review INDICATED 07/02/21 08:25 Urine Culture Comments INDICATED 07/02/21 08:25 Nasal Adenovirus (PCR) NOT DETECTED 07/01/21 10:28 Nasal B. parapertussis DNA (PCR) NOT DETECTED 07/01/21 10:28 Nasal Coronavir 229E PCR NOT DETECTED 07/01/21 10:28 Nasal Coronavir HKU1 PCR NOT DETECTED 07/01/21 10:28 Nasal Coronavir NL63 PCR NOT DETECTED 07/01/21 10:28 Nasal Coronavir OC43 PCR NOT DETECTED 07/01/21 10:28 Nasal Enterovir/Rhinovir PCR NOT DETECTED 07/01/21 10:28 Nasal Influenza B PCR NOT DETECTED 07/01/21 10:28 Nasal Influenza A PCR NOT DETECTED 07/01/21 10:28 Nasal Parainfluen 1 PCR NOT DETECTED 07/01/21 10:28 Nasal Parainfluen 2 PCR NOT DETECTED 07/01/21 10:28 Nasal Parainfluen 3 PCR NOT DETECTED 07/01/21 10:28 Nasal Parainfluen 4 PCR NOT DETECTED 07/01/21 10:28 Nasal RSV (PCR) NOT DETECTED 07/01/21 10:28 Nasal B.pertussis DNA PCR NOT DETECTED 07/01/21 10:28 Nasal C.pneumoniae (PCR) NOT DETECTED 07/01/21 10:28 [place] Human Metapneumo PCR NOT DETECTED 07/01/21 10:28 Nasal M.pneumoniae (PCR) NOT DETECTED 07/01/21 10:28 Nasal SARS-CoV-2 (PCR) NOT DETECTED 07/01/21 10:28 Sepsis Event Note (H) - Evaluation Current Stage of Sepsis: Ruled out ABX Reporting Has patient been on IV antibiotics over the past 48 hours?: No
[2021-07-04] MEDS: ASPIRIN CHEW 81 MG TABLET PO SCH (09:29)
[2021-07-04] MEDS: levoFLOXacin 250 MG TABLET PO SCH (09:29)
[2021-07-04] MEDS: MIDODRINE 2.5 MG TABLET PO SCH ×3 (09:29→17:39)
[2021-07-04] MEDS: LOSARTAN 50 MG TABLET PO SCH (09:30)
[2021-07-04] MEDS: carvediloL 3.125 MG TABLET PO SCH ×2 (09:30→20:11)
[2021-07-04] MEDS: TAMSULOSIN 0.4 MG CAPSULE PO SCH (09:34)
[2021-07-04] MEDS: MULTIVITAMIN W/MINERALS TABLET PO SCH (12:06)
[2021-07-04] MEDS: SACCHAROMYCES BOULARDII 250 MG CAPSULE PO SCH (17:39)
[2021-07-04] MEDS: ATORVASTATIN 40 MG TABLET PO SCH (20:11)
[2021-07-04] MEDS: RANOLAZINE 500 MG PO SCH (20:13)
[2021-07-05] MEDS: FUROSEMIDE 20 MG/2 ML VIAL IVP SCH ×2 (05:45→14:16)
[2021-07-05 06:11] LABS: BASOPHILS # (AUTO) 0.1 10^3/uL (0.0-0.1); BASOPHILS % (AUTO) 0.6 %; EOSINOPHILS # (AUTO) 0.4 10^3/uL (0.0-0.7); EOSINOPHILS % (AUTO) 4.4 %; HCT - HEMATOCRIT 33.4 % (42.0-52.0); HGB - HEMOGLOBIN 10.9 g/dL (14.0-18.0); LYMPHOCYTES # (AUTO) 1.3 10^3/uL (1.5-3.5); LYMPHOCYTES % (AUTO) 13.2 %; MEAN CORPUSCULAR HEMOGLOBIN 29.6 pg (27.0-31.0); MEAN CORPUSCULAR HGB CONC 32.6 g/dL (32.0-36.0); MEAN CORPUSCULAR VOLUME 90.8 fL (80.0-94.0); MEAN PLATELET VOLUME 10.4 fL (7.4-11.4); MONOCYTES # (AUTO) 0.7 10^3/uL (0.0-1.0); MONOCYTES % (AUTO) 7.8 %; NEUTROPHILS % (AUTO) 73.5 %; PLT - PLATELET COUNT 213 10^3/uL (130-450); RED BLOOD COUNT 3.68 10^6/uL (4.70-6.10); WHITE BLOOD COUNT 9.5 x10^3/uL (4.8-10.8)
[2021-07-05 06:16] LABS: CALCIUM 8.7 mg/dL (8.5-10.3); CREATININE 3.2 mg/dL (0.6-1.2); POTASSIUM 3.7 mmol/L (3.5-5.0)
--- NOTE | 2021-07-05 07:37 | PROVIDER PROGRESS NOTE ---
Assessment/Plan - Problem List (1) SRINIVAS (acute kidney injury) Assessment/Plan: No change in renal function Creatinine 3.2 and GFR 19. Etiology: This could be secondary to urinary retention related to BPH, UTI and/or CHF exacerbation. Patient has a Winters catheter in place. Levaquin 250 mg p.o. every 48 hours. He is being actively diuresed with Lasix 20 mg IV twice daily. MUGA done to assess cardiac EF. Results pending (2) Acute on chronic congestive heart failure Qualifiers: Heart failure type: unspecified Qualified Code(s): I50.9 - Heart failure, unspecified Assessment/Plan: BNP this morning is 2238. On Coreg 3.125 mg p.o. twice daily. Digoxin 250mcg po X1 given Then 125mcg daily to start 07/06/21 On Lasix 20 mg IV twice daily. Losartan 12.5mg po daily MUGA ordered to assess cardiac EF Patient's EF in 2019 was 22 (3) Hypoglycemia Assessment/Plan: Hypoglycemia was due to patient's medication. At home he is on Trulicity and glimepiride. These are currently on hold. Plan to discontinue Trulicity and glimepiride upon discharge Hemoglobin A1c was 5.2 Blood glucose this morning was 160. We will continue to monitor. Hold off on administering any insulin for the time being. (4) Hyponatremia Assessment/Plan: This is likely secondary to hypervolemia with CHF however it was likely exacerbated by administration of D50. Sodium is 134 today. Patient is being diuresed Will continue to monitor. Anticipating further improvement (5) UTI (urinary tract infection) Qualifiers: Urinary tract infection type: site unspecified Hematuria presence: with hematuria Qualified Code(s): N39.0 - Urinary tract infection, site not specified; R31.9 - Hematuria, unspecified Assessment/Plan: Levaquin 250 mg p.o. every 48 hours. (6) Urinary retention due to benign prostatic hyperplasia Assessment/Plan: Winters catheter in place. On tamsulosin 0.4 mg p.o. daily (7) V-tach Assessment/Plan: Nonsustained. Patient asymptomatic. Will check electrolytes and replace accordingly. (8) Vomiting Qualifiers: Vomiting type: bilious vomiting Nausea presence: with nausea Qualified Code(s): R11.14 - Bilious vomiting (9) BPH (benign prostatic hyperplasia) Qualifiers: Lower urinary tract symptom presence: symptoms present Lower urinary tract symptom detail: urinary retention Qualified Code(s): N40.1 - Benign prostatic hyperplasia with lower urinary tract symptoms; R33.8 - Other retention of urine (10) Type 2 diabetes mellitus Qualifiers: Diabetes mellitus fpc insulin use: without fpc use Diabetes mellitus complication status: with hypoglycemia Diabetes mellitus complication detail: without coma Qualified Code(s): E11.649 - Type 2 diabetes mellitus with hypoglycemia without coma Assessment/Plan: At home patient is on Trulicity and glimepiride. However this is currently on hold due to significant hypoglycemia. Plan to discontinue Trulicity and glimepiride upon discharge. The patient's hemoglobin A1c was 5.2. - Current Meds Current Meds: Current Medications Generic Name Dose Route Start Last Admin Trade Name Freq PRN Reason Stop Dose Admin Acetaminophen 650 mg 07/01/21 12:57 07/04/21 05:31 Acetaminophen 325 Mg Tablet PO 650 mg Q4HR PRN Administration Pain 1 to 4 Aspirin 81 mg 07/02/21 09:00 07/04/21 09:29 Aspirin Chew 81 Mg Tablet PO 81 mg DAILY JONNATHAN Administration Atorvastatin Calcium 80 mg 07/02/21 21:00 07/04/21 20:11 Atorvastatin 40 Mg Tablet PO 80 mg QPM JONNATHAN Administration Carvedilol 3.125 mg 07/01/21 21:00 07/04/21 20:11 Carvedilol 3.125 Mg Tablet PO 3.125 mg BID JONNATHAN Administration Furosemide 20 mg 07/02/21 10:00 07/05/21 05:45 Furosemide 20 Mg/2 Ml Vial IVP 20 mg BIDDIURETIC JONNATHAN Administration Levofloxacin 250 mg 07/04/21 09:00 07/04/21 09:29 Levofloxacin 250 Mg Tablet PO 250 mg Q48H JONNATHAN Administration Losartan Potassium 12.5 mg 07/04/21 09:00 07/04/21 09:30 Losartan 50 Mg Tablet PO Not Given DAILY JONNATHAN Metoclopramide HCl 5 mg 07/02/21 13:36 07/04/21 05:31 Metoclopramide 10 Mg/2 Ml Vial IVP 5 mg Q6HR PRN Administration Nausea / Vomiting Midodrine 2.5 mg 07/04/21 08:00 07/04/21 17:39 Midodrine 2.5 Mg Tablet PO 2.5 mg TIDWM JONNATHAN Administration Multivitamins/Minerals 1 tab 07/04/21 12:00 07/04/21 12:06 Multivitamin W/Minerals Tablet PO 1 tab DAILYWM JONNATHAN Administration Ondansetron HCl 4 mg 07/01/21 12:57 07/02/21 10:45 Ondansetron Odt 4 Mg Tablet TL 4 mg Q6HR PRN Administration Nausea / Vomiting Ondansetron HCl 4 mg 07/01/21 12:57 07/03/21 00:08 Ondansetron 4 Mg/2 Ml Vial IVP 4 mg Q6HR PRN Administration Nausea / Vomiting Oxycodone HCl 5 mg 07/01/21 12:57 07/04/21 05:31 Oxycodone 5 Mg Tablet PO 5 mg Q4HR PRN Administration Pain 5 to 7 Ranolazine [Ranexa] 1 each 07/04/21 21:00 07/04/21 20:13 500 Mg Tablet PO Not Given BID JONNATHAN Saccharomyces Boulardii 250 mg 07/04/21 17:00 07/04/21 17:39 Saccharomyces Boulardii 250 Mg Capsule PO 250 mg BIDWM JONNATHAN Administration Sodium Chloride 10 ml 07/01/21 12:57 07/04/21 14:51 Sodium Chloride Flush 0.9% 10 Ml Syringe IVP 10 ml PRN PRN Administration NEEDED PER PROVIDER ORDERS Sodium Chloride 10 ml 07/01/21 17:00 07/04/21 23:42 Sodium Chloride Flush 0.9% 10 Ml Syringe IVP 10 ml 0100,0900,1700 JONNATHAN Administration Tamsulosin HCl 0.4 mg 07/04/21 01:54 07/04/21 09:34 Tamsulosin 0.4 Mg Capsule PO Not Given DAILY JONNATHAN - Lab Result Fish Bone Diagrams: 07/05/21 05:48 07/05/21 05:48 - Additional Planning My Orders: My Active Orders 07/04/21 Lunch Regular Diet [DIET] 07/04/21 12:00 Multivitamin W/Minerals [Theragran M] 1 tab PO DAILYWM 07/04/21 17:00 Saccharomyces Boulardii [Florastor] 250 mg PO BIDWM Subjective - Subjective Patient Reports: Other (Patient reports mild to moderate dyspnea. Also complains of feeling cold.) Objective Vital Signs: Vital Signs - 24 hr 07/04/21 07/04/21 07/04/21 12:23 16:00 20:09 Temperature 36.6 C 36.4 C L 36.4 C L Heart Rate [ 73 66 Brachial] Heart Rate [ 87 Monitoring electrodes] Respiratory 18 18 16 Rate Blood Pressure [Left Brachial artery] Blood Pressure 90/42 L 97/49 L 127/56 L [Right Brachial artery] O2 Saturation 95 94 95 07/04/21 07/05/21 07/05/21 23:39 03:57 07:33 Temperature 36.6 C 36.4 C L 36.6 C Heart Rate [ Brachial] Heart Rate [ 79 82 71 Monitoring electrodes] Respiratory 20 16 18 Rate Blood Pressure 96/53 L 104/62 [Left Brachial artery] Blood Pressure 113/56 L [Right Brachial artery] O2 Saturation 97 96 95 Oxygen O2 Source Room air I&O (Last 24 Hrs): Intake and Output Totals x24h 07/03/21 07/04/21 07/05/21 23:59 23:59 23:59 Intake Total 2621.385 1091.943 240 Output Total 1600 1050 300 Balance 1021.385 41.943 -60 Comments/Notes: General: Alert, Oriented x3, Cooperative, No acute distress HEENT: PERRLA, EOMI Neck: Supple, No JVD Neuro: Alert Cardiovascular: Regular rate Respiratory: Wheezes, Other (crackles) Abdomen: Normal bowel sounds, Soft, No tenderness, No masses Extremities: No clubbing, No cyanosis, No edema Skin: No rashes, No breakdown, No significant lesion - Results Results: Laboratory Results WBC 9.5 x10^3/uL (4.8-10.8) 07/05/21 05:48 RBC 3.68 10^6/uL (4.70-6.10) L 07/05/21 05:48 Hgb 10.9 g/dL (14.0-18.0) L 07/05/21 05:48 Hct 33.4 % (42.0-52.0) L 07/05/21 05:48 MCV 90.8 fL (80.0-94.0) 07/05/21 05:48 MCH 29.6 pg (27.0-31.0) 07/05/21 05:48 MCHC 32.6 g/dL (32.0-36.0) 07/05/21 05:48 RDW 19.0 % (12.0-15.0) H 07/05/21 05:48 Plt Count 213 10^3/uL (130-450) 07/05/21 05:48 MPV 10.4 fL (7.4-11.4) 07/05/21 05:48 Neut # (Auto) 7.0 10^3/uL (1.5-6.6) H 07/05/21 05:48 Lymph # (Auto) 1.3 10^3/uL (1.5-3.5) L 07/05/21 05:48 [place] # (Auto) 0.7 10^3/uL (0.0-1.0) 07/05/21 05:48 Eos # (Auto) 0.4 10^3/uL (0.0-0.7) 07/05/21 05:48 Baso # (Auto) 0.1 10^3/uL (0.0-0.1) 07/05/21 05:48 Absolute Nucleated RBC 0.00 x10^3/uL 07/05/21 05:48 Nucleated RBC % 0.0 /100WBC 07/05/21 05:48 Sodium 134 mmol/L (135-145) L 07/05/21 05:48 Potassium 3.7 mmol/L (3.5-5.0) 07/05/21 05:48 Chloride 104 mmol/L (101-111) 07/05/21 05:48 Carbon Dioxide 18 mmol/L (21-32) L 07/05/21 05:48 Anion Gap 12.0 (6-13) 07/05/21 05:48 BUN 64 mg/dL (6-20) H 07/05/21 05:48 Creatinine 3.2 mg/dL (0.6-1.2) H 07/05/21 05:48 Estimated GFR (MDRD) 19 (>89) L 07/05/21 05:48 Glucose 141 mg/dL (70-100) H 07/05/21 05:48 Estimat Average Glucose 103 mg/dL (70-100) H 07/02/21 05:15 Hemoglobin A1c % 5.2 % (4.27-6.07) 07/02/21 05:15 Lactic Acid 1.3 mmol/L (0.5-2.2) 07/01/21 12:08 Calcium 8.7 mg/dL (8.5-10.3) 07/05/21 05:48 Phosphorus 3.4 mg/dL (2.5-4.6) 07/03/21 01:30 Magnesium 2.3 mg/dL (1.7-2.8) 07/03/21 01:30 Total Bilirubin 1.4 mg/dL (0.2-1.0) H 07/01/21 10:29 AST 24 IU/L (10-42) 07/01/21 10:29 ALT 17 IU/L (10-60) 07/01/21 10:29 Alkaline Phosphatase 126 IU/L (42-121) H 07/01/21 10:29 Troponin I High Sens 39.6 ng/L (2.3-19.7) H* 07/03/21 01:34 B-Natriuretic Peptide 2238 pg/mL (5-100) H 07/05/21 05:48 Total Protein 6.6 g/dL (6.7-8.2) L 07/01/21 10:29 Albumin 3.1 g/dL (3.2-5.5) L 07/01/21 10:29 Globulin 3.5 g/dL (2.1-4.2) 07/01/21 10:29 Albumin/Globulin Ratio 0.9 (1.0-2.2) L 07/01/21 10:29 Lipase 26 U/L (22-51) 07/01/21 10:29 TSH 6.70 uIU/mL (0.34-5.60) H 07/04/21 04:51 Urine Color YELLOW 07/02/21 08:25 Urine Clarity SL. CLOUDY (CLEAR) 07/02/21 08:25 Urine pH 5.0 PH (5.0-7.5) 07/02/21 08:25 Ur Specific [place] 1.010 (1.002-1.030) 07/02/21 08:25 Urine Protein 30 mg/dL (NEGATIVE) H 07/02/21 08:25 Urine Glucose (UA) NEGATIVE mg/dL (NEGATIVE) 07/02/21 08:25 Urine Ketones NEGATIVE mg/dL (NEGATIVE) 07/02/21 08:25 Urine Occult Blood LARGE (NEGATIVE) H 07/02/21 08:25 Urine Nitrite NEGATIVE (NEGATIVE) 07/02/21 08:25 Urine Bilirubin NEGATIVE (NEGATIVE) 07/02/21 08:25 Urine Urobilinogen 0.2 (NORMAL) E.U./dL (NORMAL) 07/02/21 08:25 Ur Leukocyte Esterase LARGE (NEGATIVE) H 07/02/21 08:25 Urine RBC 6-10 /HPF (0-5) H 07/02/21 08:25 Urine WBC >25 /HPF (0-3) H 07/02/21 08:25 Ur Squamous Epith Cells RARE Squamous (<= Few) 07/02/21 08:25 Urine Bacteria Few /HPF (None Seen) 07/02/21 08:25 Ur Microscopic Review INDICATED 07/02/21 08:25 Urine Culture Comments INDICATED 07/02/21 08:25 Nasal Adenovirus (PCR) NOT DETECTED 07/01/21 10:28 Nasal B. parapertussis DNA (PCR) NOT DETECTED 07/01/21 10:28 Nasal Coronavir 229E PCR NOT DETECTED 07/01/21 10:28 Nasal Coronavir HKU1 PCR NOT DETECTED 07/01/21 10:28 Nasal Coronavir NL63 PCR NOT DETECTED 07/01/21 10:28 Nasal Coronavir OC43 PCR NOT DETECTED 07/01/21 10:28 Nasal Enterovir/Rhinovir PCR NOT DETECTED 07/01/21 10:28 Nasal Influenza B PCR NOT DETECTED 07/01/21 10:28 Nasal Influenza A PCR NOT DETECTED 07/01/21 10:28 Nasal Parainfluen 1 PCR NOT DETECTED 07/01/21 10:28 Nasal Parainfluen 2 PCR NOT DETECTED 07/01/21 10:28 Nasal Parainfluen 3 PCR NOT DETECTED 07/01/21 10:28 Nasal Parainfluen 4 PCR NOT DETECTED 07/01/21 10:28 Nasal RSV (PCR) NOT DETECTED 07/01/21 10:28 Nasal B.pertussis DNA PCR NOT DETECTED 07/01/21 10:28 Nasal C.pneumoniae (PCR) NOT DETECTED 07/01/21 10:28 [place] Human Metapneumo PCR NOT DETECTED 07/01/21 10:28 Nasal M.pneumoniae (PCR) NOT DETECTED 07/01/21 10:28 Nasal SARS-CoV-2 (PCR) NOT DETECTED 07/01/21 10:28 Sepsis Event Note (H) - Evaluation Current Stage of Sepsis: Ruled out ABX Reporting Has patient been on IV antibiotics over the past 48 hours?: No
--- NOTE | 2021-07-05 08:35 | XRAY Report ---
PROCEDURE: Chest 1 View X-Ray INDICATIONS: Orthopnea and wheezing TECHNIQUE: One view of the chest was acquired. COMPARISON: July 02, 2021 FINDINGS: SUPPORT DEVICES: Redemonstrated sternotomy wires and a cardiac device. LUNGS/PLEURA: Persistent interstitial prominence with blunting of the costophrenic sulci, left greate r than right, compatible pulmonary edema and pleural effusions. MEDIASTINUM: Mild enlargement of chronic silhouette. BONES/SOFT TISSUES: No acute abnormality. IMPRESSION: 1.Pulmonary edema pattern with pleural effusions. Reviewed by: Colin Liu MD on 07/05/2021 8:34 AM PST Approved by: Colin Liu MD on 07/05/2021 8:34 AM PST Station ID: [id number]
[2021-07-05] MEDS ORDERED: DIGOXIN 125 MCG TABLET PO STA (09:10)
[2021-07-05] MEDS: ASPIRIN CHEW 81 MG TABLET PO SCH (09:13)
[2021-07-05] MEDS: MULTIVITAMIN W/MINERALS TABLET PO SCH (09:13)
[2021-07-05] MEDS: carvediloL 3.125 MG TABLET PO SCH ×2 (09:13→21:02)
[2021-07-05] MEDS: MIDODRINE 2.5 MG TABLET PO SCH ×3 (09:13→17:25)
[2021-07-05] MEDS: SACCHAROMYCES BOULARDII 250 MG CAPSULE PO SCH ×2 (09:13→17:25)
[2021-07-05] MEDS: TAMSULOSIN 0.4 MG CAPSULE PO SCH (09:13)
[2021-07-05] MEDS: SODIUM CHLORIDE FLUSH 0.9% 10 ML SYRINGE IVP SCH ×3 (09:18→23:42)
[2021-07-05] MEDS: LOSARTAN 50 MG TABLET PO SCH (09:18)
[2021-07-05] MEDS: RANOLAZINE 500 MG PO SCH ×2 (09:19→21:02)
[2021-07-05] MEDS: SODIUM CHLORIDE FLUSH 0.9% 10 ML SYRINGE IVP PRN (14:17)
--- NOTE | 2021-07-05 18:12 | Nuclear Medicine Report ---
PROCEDURE: MUGA Cardiac Imaging INDICATIONS: CHF RADIOPHARMACEUTICAL: 25.6 mCi Tc-99m labeled autologous red cells IV. TECHNIQUE: After intravenous administration of autologous labeled WBC, CHINESE views of the chest were obtained. A region of interest was drawn around the left ventricle to calculate left ventricle ejection fraction. COMPARISON: None available. FINDINGS: The heart and great vessels are of normal size and configuration. The left ventricle demonstrates de creased contractility with diffuse hypokinesia. The left ventricle ejection fraction is 26.7%. Clau l ejection fractions for this study are above 55%. IMPRESSION: Severely decreased left ventricular systolic function with LVEF 26.7%. Reviewed by: Rolando Rodríguez MD on 07/05/2021 6:11 PM PST Approved by: Rolando Rodríguez MD on 07/05/2021 6:11 PM PST Station ID: [id number]
[2021-07-05] MEDS: ATORVASTATIN 40 MG TABLET PO SCH (21:01)
[2021-07-06] MEDS: FUROSEMIDE 20 MG/2 ML VIAL IVP SCH ×2 (05:51→14:02)
[2021-07-06 06:39] LABS: BASOPHILS # (AUTO) 0.1 10^3/uL (0.0-0.1); BASOPHILS % (AUTO) 0.7 %; EOSINOPHILS # (AUTO) 0.7 10^3/uL (0.0-0.7); EOSINOPHILS % (AUTO) 8.2 %; HCT - HEMATOCRIT 32.7 % (42.0-52.0); HGB - HEMOGLOBIN 10.8 g/dL (14.0-18.0); LYMPHOCYTES # (AUTO) 0.9 10^3/uL (1.5-3.5); LYMPHOCYTES % (AUTO) 10.6 %; MEAN CORPUSCULAR HEMOGLOBIN 29.8 pg (27.0-31.0); MEAN CORPUSCULAR VOLUME 90.3 fL (80.0-94.0); MEAN PLATELET VOLUME 10.3 fL (7.4-11.4); MONOCYTES # (AUTO) 0.7 10^3/uL (0.0-1.0); MONOCYTES % (AUTO) 8.6 %; NEUTROPHILS % (AUTO) 71.5 %; PLT - PLATELET COUNT 198 10^3/uL (130-450); RED BLOOD COUNT 3.62 10^6/uL (4.70-6.10); RED CELL DISTRIBUTION WIDTH 18.7 % (12.0-15.0); WHITE BLOOD COUNT 8.3 x10^3/uL (4.8-10.8)
[2021-07-06 06:52] LABS: CALCIUM 8.7 mg/dL (8.5-10.3); DIGOXIN 0.4 ng/mL; POTASSIUM 3.7 mmol/L (3.5-5.0)
--- NOTE | 2021-07-06 07:16 | PROVIDER PROGRESS NOTE ---
Assessment/Plan - Problem List (1) Acute on chronic congestive heart failure Qualifiers: Heart failure type: unspecified Qualified Code(s): I50.9 - Heart failure, unspecified Assessment/Plan: Improving Breathing better, Improved SBP of 120's BNP this morning is 2478. On Coreg 3.125 mg p.o. twice daily. Digoxin 125mcg daily On Lasix 20 mg IV twice daily. Losartan 12.5mg po daily Ranexa 500mg po bid Will add spironolactone as blood pressure permits EF on MUGA done 07/05/21 was 26 with diffuse hypokinesia reported Patient's EF in 2019 was 22 (2) History of ischemic cardiomyopathy Assessment/Plan: BNP this morning is 2478. On Coreg 3.125 mg p.o. twice daily. Digoxin 125mcg daily On Lasix 20 mg IV twice daily. 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 Patient underwent a watchman procedure. On Coreg 3.125 mg p.o. twice daily. (4) SRINIVAS (acute kidney injury) Assessment/Plan: No significant change in renal function Creatinine 3.0 and GFR 20. Suspect CHF exacerbation is most contributing factor Continuing diuresis with Lasix 20mg IV bid. (5) Hypoglycemia Assessment/Plan: Resolved (6) Hyponatremia Assessment/Plan: Resolved. This is likely secondary to hypervolemia with CHF however it was likely exacerbated by administration of D50. Sodium is 134 today. Patient is being diuresed. Will continue to monitor. (7) UTI (urinary tract infection) Qualifiers: Urinary tract infection type: site unspecified Hematuria presence: with hematuria Qualified Code(s): N39.0 - Urinary tract infection, site not specified; R31.9 - Hematuria, unspecified Assessment/Plan: NGTD on urine culture Levaquin discontinued 07/06/21 (9) V-tach Assessment/Plan: Nonsustained. Patient asymptomatic. Will check electrolytes and replace accordingly. (10) Vomiting Qualifiers: Vomiting type: bilious vomiting Nausea presence: with nausea Qualified Code(s): R11.14 - Bilious vomiting (11) BPH (benign prostatic hyperplasia) Qualifiers: Lower urinary tract symptom presence: symptoms present Lower urinary tract symptom detail: urinary retention Qualified Code(s): N40.1 - Benign prostatic hyperplasia with lower urinary tract symptoms; R33.8 - Other retention of urine Assessment/Plan: On tamulosin 0.4mg po daily (12) Type 2 diabetes mellitus Qualifiers: Diabetes mellitus ferry terminal agent insulin use: without fdc use Diabetes mellitus complication status: with hypoglycemia Diabetes mellitus complication detail: without coma Qualified Code(s): E11.649 - Type 2 diabetes mellitus with hypoglycemia without coma Assessment/Plan: At home patient is on Trulicity and glimepiride. However this is currently on hold due to significant hypoglycemia. Plan to discontinue Trulicity and glimepiride upon discharge. The patient's hemoglobin A1c was 5.2. - Current Meds Current Meds: Current Medications Generic Name Dose Route Start Last Admin Trade Name Freq PRN Reason Stop Dose Admin Acetaminophen 650 mg 07/01/21 12:57 07/04/21 05:31 Acetaminophen 325 Mg Tablet PO 650 mg Q4HR PRN Administration Pain 1 to 4 Aspirin 81 mg 07/02/21 09:00 07/05/21 09:13 Aspirin Chew 81 Mg Tablet PO 81 mg DAILY JONNATHAN Administration Atorvastatin Calcium 80 mg 07/02/21 21:00 07/05/21 21:01 Atorvastatin 40 Mg Tablet PO 80 mg QPM JONNATHAN Administration Carvedilol 3.125 mg 07/05/21 21:00 07/05/21 21:02 Carvedilol 3.125 Mg Tablet PO 3.125 mg BID JONNATHAN Administration Furosemide 20 mg 07/06/21 06:00 07/06/21 05:51 Furosemide 20 Mg/2 Ml Vial IVP 20 mg BIDDIURETIC JONNATHAN Administration Levofloxacin 250 mg 07/04/21 09:00 07/04/21 09:29 Levofloxacin 250 Mg Tablet PO 250 mg Q48H JONNATHAN Administration Losartan Potassium 12.5 mg 07/04/21 09:00 07/05/21 09:18 Losartan 50 Mg Tablet PO Not Given DAILY JONNATHAN Metoclopramide HCl 5 mg 07/02/21 13:36 07/04/21 05:31 Metoclopramide 10 Mg/2 Ml Vial IVP 5 mg Q6HR PRN Administration Nausea / Vomiting Midodrine 2.5 mg 07/04/21 08:00 07/05/21 17:25 Midodrine 2.5 Mg Tablet PO 2.5 mg TIDWM JONNATHAN Administration Multivitamins/Minerals 1 tab 07/04/21 12:00 07/05/21 09:13 Multivitamin W/Minerals Tablet PO 1 tab DAILYWM JONNATHAN Administration Ondansetron HCl 4 mg 07/01/21 12:57 07/02/21 10:45 Ondansetron Odt 4 Mg Tablet TL 4 mg Q6HR PRN Administration Nausea / Vomiting Ondansetron HCl 4 mg 07/01/21 12:57 07/03/21 00:08 Ondansetron 4 Mg/2 Ml Vial IVP 4 mg Q6HR PRN Administration Nausea / Vomiting Oxycodone HCl 5 mg 07/01/21 12:57 07/04/21 05:31 Oxycodone 5 Mg Tablet PO 5 mg Q4HR PRN Administration Pain 5 to 7 Ranolazine [Ranexa] 1 each 07/04/21 21:00 07/05/21 21:02 500 Mg Tablet PO Not Given BID [facility] Saccharomyces Boulardii 250 mg 07/04/21 17:00 07/05/21 17:25 Saccharomyces Boulardii 250 Mg Capsule PO 250 mg BIDWM JONNATHAN Administration Sodium Chloride 10 ml 07/01/21 12:57 07/05/21 14:17 Sodium Chloride Flush 0.9% 10 Ml Syringe IVP 10 ml PRN PRN Administration NEEDED PER PROVIDER ORDERS Sodium Chloride 10 ml 07/01/21 17:00 07/05/21 23:42 Sodium Chloride Flush 0.9% 10 Ml Syringe IVP 10 ml 0100,0900,1700 JONNATHAN Administration Tamsulosin HCl 0.4 mg 07/04/21 01:54 07/05/21 09:13 Tamsulosin 0.4 Mg Capsule PO 0.4 mg DAILY JONNATHAN Administration - Lab Result Fish Bone Diagrams: 07/06/21 06:13 07/06/21 06:13 - Additional Planning My Orders: My Active Orders 07/05/21 21:00 carvediloL [Coreg] 3.125 mg PO BID 07/06/21 06:00 FUROSEMIDE INJ 20mg VIAL [LASIX INJ 20mg VIAL] 20 mg IVP BIDDIURETIC 07/06/21 09:00 Digoxin [Lanoxin] 125 mcg PO DAILY 07/07/21 05:00 DIGOXIN [CHEM] DAILYLAB Subjective - Subjective Patient Reports: Other (Patient appeared to be breathing more comfortably today. He was awake and seated in the bedside chair at time of exam. Mild crackles on auscultation. Blood pressure was significantly improved today.) Objective Vital Signs: Vital Signs - 24 hr 07/05/21 07/05/21 07/05/21 07:33 11:03 14:23 Temperature 36.6 C 36.5 C Heart Rate [ 106 H Brachial] Heart Rate [ 71 Monitoring electrodes] Respiratory 18 18 Rate Blood Pressure 104/62 104/58 L 107/51 L [Left Brachial artery] Blood Pressure [Right Brachial artery] O2 Saturation 95 97 07/05/21 07/05/21 07/05/21 15:47 20:22 23:26 Temperature 36.6 C 36.7 C 36.5 C Heart Rate [ Brachial] Heart Rate [ 86 87 76 Monitoring electrodes] Respiratory 16 16 16 Rate Blood Pressure [Left Brachial artery] Blood Pressure 105/50 L 94/48 L 101/54 L [Right Brachial artery] O2 Saturation 96 99 96 07/06/21 05:25 Temperature 36.7 C Heart Rate [ 66 Brachial] Heart Rate [ Monitoring electrodes] Respiratory 16 Rate Blood Pressure [Left Brachial artery] Blood Pressure 101/45 L [Right Brachial artery] O2 Saturation 95 Oxygen O2 Source Room air I&O (Last 24 Hrs): Intake and Output Totals x24h 07/04/21 07/05/21 07/06/21 23:59 23:59 23:59 Intake Total 5219.711 5441 0 Output Total 1050 1250 375 Balance 41.943 -100 -375 Comments/Notes: General: Alert, Oriented x3, Cooperative, No acute distress HEENT: PERRLA, EOMI Neck: Supple, No JVD Neuro: Alert Cardiovascular: Regular rate Respiratory: Wheezes, Other (crackles) Abdomen: Normal bowel sounds, Soft, No tenderness, No masses Extremities: No clubbing, No cyanosis, No edema Skin: No rashes, No breakdown, No significant lesion - Results Results: Laboratory Results WBC 8.3 x10^3/uL (4.8-10.8) 07/06/21 06:13 RBC 3.62 10^6/uL (4.70-6.10) L 07/06/21 06:13 Hgb 10.8 g/dL (14.0-18.0) L 07/06/21 06:13 Hct 32.7 % (42.0-52.0) L 07/06/21 06:13 MCV 90.3 fL (80.0-94.0) 07/06/21 06:13 MCH 29.8 pg (27.0-31.0) 07/06/21 06:13 MCHC 33.0 g/dL (32.0-36.0) 07/06/21 06:13 RDW 18.7 % (12.0-15.0) H 07/06/21 06:13 Plt Count 198 10^3/uL (130-450) 07/06/21 06:13 MPV 10.3 fL (7.4-11.4) 07/06/21 06:13 Neut # (Auto) 6.0 10^3/uL (1.5-6.6) 07/06/21 06:13 Lymph # (Auto) 0.9 10^3/uL (1.5-3.5) L 07/06/21 06:13 [place] # (Auto) 0.7 10^3/uL (0.0-1.0) 07/06/21 06:13 Eos # (Auto) 0.7 10^3/uL (0.0-0.7) 07/06/21 06:13 Baso # (Auto) 0.1 10^3/uL (0.0-0.1) 07/06/21 06:13 Absolute Nucleated RBC 0.00 x10^3/uL 07/06/21 06:13 Nucleated RBC % 0.0 /100WBC 07/06/21 06:13 Sodium 136 mmol/L (135-145) 07/06/21 06:13 Potassium 3.7 mmol/L (3.5-5.0) 07/06/21 06:13 Chloride 102 mmol/L (101-111) 07/06/21 06:13 Carbon Dioxide 22 mmol/L (21-32) 07/06/21 06:13 Anion Gap 12.0 (6-13) 07/06/21 06:13 BUN 62 mg/dL (6-20) H 07/06/21 06:13 Creatinine 3.0 mg/dL (0.6-1.2) H 07/06/21 06:13 Estimated GFR (MDRD) 20 (>89) L 07/06/21 06:13 Glucose 92 mg/dL (70-100) 07/06/21 06:13 Estimat Average Glucose 103 mg/dL (70-100) H 07/02/21 05:15 Hemoglobin A1c % 5.2 % (4.27-6.07) 07/02/21 05:15 Lactic Acid 1.3 mmol/L (0.5-2.2) 07/01/21 12:08 Calcium 8.7 mg/dL (8.5-10.3) 07/06/21 06:13 Phosphorus 3.4 mg/dL (2.5-4.6) 07/03/21 01:30 Magnesium 2.3 mg/dL (1.7-2.8) 07/03/21 01:30 Total Bilirubin 1.4 mg/dL (0.2-1.0) H 07/01/21 10:29 AST 24 IU/L (10-42) 07/01/21 10:29 ALT 17 IU/L (10-60) 07/01/21 10:29 Alkaline Phosphatase 126 IU/L (42-121) H 07/01/21 10:29 Troponin I High Sens 39.6 ng/L (2.3-19.7) H* 07/03/21 01:34 B-Natriuretic Peptide 2478 pg/mL (5-100) H 07/06/21 06:13 Total Protein 6.6 g/dL (6.7-8.2) L 07/01/21 10:29 Albumin 3.1 g/dL (3.2-5.5) L 07/01/21 10:29 Globulin 3.5 g/dL (2.1-4.2) 07/01/21 10:29 Albumin/Globulin Ratio 0.9 (1.0-2.2) L 07/01/21 10:29 Lipase 26 U/L (22-51) 07/01/21 10:29 TSH 6.70 uIU/mL (0.34-5.60) H 07/04/21 04:51 Urine Color YELLOW 07/02/21 08:25 Urine Clarity SL. CLOUDY (CLEAR) 07/02/21 08:25 Urine pH 5.0 PH (5.0-7.5) 07/02/21 08:25 Ur Specific [place] 1.010 (1.002-1.030) 07/02/21 08:25 Urine Protein 30 mg/dL (NEGATIVE) H 07/02/21 08:25 Urine Glucose (UA) NEGATIVE mg/dL (NEGATIVE) 07/02/21 08:25 Urine Ketones NEGATIVE mg/dL (NEGATIVE) 07/02/21 08:25 Urine Occult Blood LARGE (NEGATIVE) H 07/02/21 08:25 Urine Nitrite NEGATIVE (NEGATIVE) 07/02/21 08:25 Urine Bilirubin NEGATIVE (NEGATIVE) 07/02/21 08:25 Urine Urobilinogen 0.2 (NORMAL) E.U./dL (NORMAL) 07/02/21 08:25 Ur Leukocyte Esterase LARGE (NEGATIVE) H 07/02/21 08:25 Urine RBC 6-10 /HPF (0-5) H 07/02/21 08:25 Urine WBC >25 /HPF (0-3) H 07/02/21 08:25 Ur Squamous Epith Cells RARE Squamous (<= Few) 07/02/21 08:25 Urine Bacteria Few /HPF (None Seen) 07/02/21 08:25 Ur Microscopic Review INDICATED 07/02/21 08:25 Urine Culture Comments INDICATED 07/02/21 08:25 Nasal Adenovirus (PCR) NOT DETECTED 07/01/21 10:28 Nasal B. parapertussis DNA (PCR) NOT DETECTED 07/01/21 10:28 Nasal Coronavir 229E PCR NOT DETECTED 07/01/21 10:28 Nasal Coronavir HKU1 PCR NOT DETECTED 07/01/21 10:28 Nasal Coronavir NL63 PCR NOT DETECTED 07/01/21 10:28 Nasal Coronavir OC43 PCR NOT DETECTED 07/01/21 10:28 Nasal Enterovir/Rhinovir PCR NOT DETECTED 07/01/21 10:28 Nasal Influenza B PCR NOT DETECTED 07/01/21 10:28 Nasal Influenza A PCR NOT DETECTED 07/01/21 10:28 Nasal Parainfluen 1 PCR NOT DETECTED 07/01/21 10:28 Nasal Parainfluen 2 PCR NOT DETECTED 07/01/21 10:28 Nasal Parainfluen 3 PCR NOT DETECTED 07/01/21 10:28 Nasal Parainfluen 4 PCR NOT DETECTED 07/01/21 10:28 Nasal RSV (PCR) NOT DETECTED 07/01/21 10:28 Nasal B.pertussis DNA PCR NOT DETECTED 07/01/21 10:28 Nasal C.pneumoniae (PCR) NOT DETECTED 07/01/21 10:28 [place] Human Metapneumo PCR NOT DETECTED 07/01/21 10:28 Nasal M.pneumoniae (PCR) NOT DETECTED 07/01/21 10:28 Nasal SARS-CoV-2 (PCR) NOT DETECTED 07/01/21 10:28 Last Dose Date 07/05/21 07/06/21 06:13 Last Dose Time 0911 07/06/21 06:13 Digoxin 0.4 ng/mL 07/06/21 06:13 Sepsis Event Note (H) - Evaluation Current Stage of Sepsis: Ruled out ABX Reporting Has patient been on IV antibiotics over the past 48 hours?: No
[2021-07-06] MEDS: ASPIRIN CHEW 81 MG TABLET PO SCH (07:47)
[2021-07-06] MEDS: SACCHAROMYCES BOULARDII 250 MG CAPSULE PO SCH ×2 (07:47→16:21)
[2021-07-06] MEDS: levoFLOXacin 250 MG TABLET PO SCH (07:48)
[2021-07-06] MEDS: TAMSULOSIN 0.4 MG CAPSULE PO SCH (07:48)
[2021-07-06] MEDS: MULTIVITAMIN W/MINERALS TABLET PO SCH (07:48)
[2021-07-06] MEDS: LOSARTAN 50 MG TABLET PO SCH (07:49)
[2021-07-06] MEDS: MIDODRINE 2.5 MG TABLET PO SCH ×3 (07:50→16:20)
[2021-07-06] MEDS: carvediloL 3.125 MG TABLET PO SCH ×2 (07:51→20:16)
[2021-07-06] MEDS: SODIUM CHLORIDE FLUSH 0.9% 10 ML SYRINGE IVP SCH ×2 (07:52→16:20)
[2021-07-06] MEDS: DIGOXIN 125 MCG TABLET PO SCH (08:00)
[2021-07-06] MEDS: polyethylene glycoL 3350 17 GM PACKET PO SCH (08:04)
[2021-07-06] MEDS: RANOLAZINE 500 MG PO SCH ×2 (12:17→20:16)
[2021-07-06] MEDS: SODIUM CHLORIDE FLUSH 0.9% 10 ML SYRINGE IVP PRN (14:02)
[2021-07-06] MEDS: ATORVASTATIN 40 MG TABLET PO SCH (20:16)
[2021-07-07] MEDS: SODIUM CHLORIDE FLUSH 0.9% 10 ML SYRINGE IVP SCH ×3 (00:41→17:22)
[2021-07-07] MEDS: FUROSEMIDE 20 MG/2 ML VIAL IVP SCH ×2 (05:12→14:01)
[2021-07-07 06:29] LABS: BASOPHILS # (AUTO) 0.1 10^3/uL (0.0-0.1); BASOPHILS % (AUTO) 0.7 %; EOSINOPHILS # (AUTO) 0.6 10^3/uL (0.0-0.7); EOSINOPHILS % (AUTO) 7.6 %; HGB - HEMOGLOBIN 10.7 g/dL (14.0-18.0); LYMPHOCYTES # (AUTO) 0.9 10^3/uL (1.5-3.5); MEAN CORPUSCULAR HEMOGLOBIN 30.1 pg (27.0-31.0); MEAN CORPUSCULAR HGB CONC 33.4 g/dL (32.0-36.0); MEAN CORPUSCULAR VOLUME 89.9 fL (80.0-94.0); MEAN PLATELET VOLUME 10.7 fL (7.4-11.4); MONOCYTES # (AUTO) 0.7 10^3/uL (0.0-1.0); MONOCYTES % (AUTO) 9.4 %; NEUTROPHILS # (AUTO) 5.3 10^3/uL (1.5-6.6); NEUTROPHILS % (AUTO) 69.9 %; PLT - PLATELET COUNT 191 10^3/uL (130-450); RED BLOOD COUNT 3.56 10^6/uL (4.70-6.10); RED CELL DISTRIBUTION WIDTH 18.8 % (12.0-15.0); WHITE BLOOD COUNT 7.6 x10^3/uL (4.8-10.8)
[2021-07-07 06:40] LABS: BUN - BLOOD UREA NITROGEN 65 mg/dL (6-20); CALCIUM 8.5 mg/dL (8.5-10.3); CARBON DIOXIDE - CO2 21 mmol/L (21-32); CHLORIDE 102 mmol/L (101-111); CREATININE 2.8 mg/dL (0.6-1.2); DIGOXIN 0.7 ng/mL; GFR - MDRD 22 (>89); GLUCOSE 91 mg/dL (70-100); SODIUM 135 mmol/L (135-145)
--- NOTE | 2021-07-07 08:07 | PROVIDER PROGRESS NOTE ---
Assessment/Plan - Problem List (1) Acute on chronic congestive heart failure Qualifiers: Heart failure type: unspecified Qualified Code(s): I50.9 - Heart failure, unspecified Assessment/Plan: Improving Breathing better comfortably on room air. Improved SBP ranging 100-130's On Coreg 3.125 mg p.o. twice daily. Digoxin 125mcg daily On Lasix 20 mg IV twice daily. Losartan 12.5mg po daily Ranexa 500mg po bid Will add spironolactone as blood pressure permits EF on MUGA done 07/05/21 was 26 with diffuse hypokinesia reported Patient's EF in 2019 was 22 (2) History of ischemic cardiomyopathy Assessment/Plan: On Coreg 3.125 mg p.o. twice daily. Digoxin 125mcg daily On Lasix 20 mg IV twice daily. 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 Patient underwent a watchman procedure. On Coreg 3.125 mg p.o. twice daily. (4) SRINIVAS (acute kidney injury) Assessment/Plan: Slight significant change in renal function Creatinine 2.8 and GFR 22. Suspect CHF exacerbation is most contributing factor Continuing diuresis with Lasix 20mg IV bid. (5) Hypoglycemia Assessment/Plan: Resolved (6) Hyponatremia Assessment/Plan: Resolved. This is likely secondary to hypervolemia with CHF however it was likely exacerba jenny by administration of D50. Sodium is 135 today. Patient is being diuresed. Will continue to monitor. (7) UTI (urinary tract infection) Qualifiers: Urinary tract infection type: site unspecified Hematuria presence: with hematuria Qualified Code(s): N39.0 - Urinary tract infection, site not specifi ed; R31.9 - Hematuria, unspecified (8) Urinary retention due to benign prostatic hyperplasia Assessment/Plan: NGTD on urine culture Levaquin discontinued 07/06/21 (9) V-tach Assessment/Plan: Nonsustained. Patient asymptomatic. Will check electrolytes and replace accordingly. (10) Vomiting Qualifiers: Vomiting type: bilious vomiting Nausea presence: with nausea Qualified Code(s): R11.14 - Bilious vomiting (11) BPH (benign prostatic hyperplasia) Qualifiers: Lower urinary tract symptom presence: symptoms present Lower urinary tract symptom detail: urinary retention Qualified Code(s): N40.1 - Benign prostatic hyperplasia with lower urinary tract symptoms; R33.8 - Other retention of urine Assessment/Plan: On tamulosin 0.4mg po daily (12) Type 2 diabetes mellitus Qualifiers: Diabetes mellitus rat exterminator insulin use: without rat exterminator use Diabetes mellitus complication status: with hypoglycemia Diabetes mellitus complication detail: without coma Qualified Code(s): E11.649 - Type 2 diabetes mellitus with hypoglycemia without coma Assessment/Plan: At home patient is on Trulicity and glimepiride. However this is currently on hold due to significant hypoglycemia. Plan to discontinue Trulicity and glimepiride upon discharge. The patient's hemoglobin A1c was 5.2. - Current Meds Current Meds: Current Medications Generic Name Dose Route Start Last Admin Trade Name Freq PRN Reason Stop Dose Admin Acetaminophen 650 mg 07/01/21 12:57 07/04/21 05:31 Acetaminophen 325 Mg Tablet PO 650 mg Q4HR PRN Administration Pain 1 to 4 Aspirin 81 mg 07/02/21 09:00 07/06/21 07:47 Aspirin Chew 81 Mg Tablet PO 81 mg DAILY JONNATHAN Administration Atorvastatin Calcium 80 mg 07/02/21 21:00 07/06/21 20:16 Atorvastatin 40 Mg Tablet PO 80 mg QPM JONNATHAN Administration Carvedilol 3.125 mg 07/05/21 21:00 07/06/21 20:16 Carvedilol 3.125 Mg Tablet PO 3.125 mg BID JONNATHAN Administration Digoxin 125 mcg 07/06/21 09:00 07/06/21 08:00 Digoxin 125 Mcg Tablet PO 125 mcg DAILY JONNATHAN Administration Furosemide 20 mg 07/06/21 06:00 07/07/21 05:12 Furosemide 20 Mg/2 Ml Vial IVP 20 mg BIDDIURETIC JONNATHAN Administration Losartan Potassium 12.5 mg 07/04/21 09:00 07/06/21 07:49 Losartan 50 Mg Tablet PO 12.5 mg DAILY JONNATHAN Administration Metoclopramide HCl 5 mg 07/02/21 13:36 07/04/21 05:31 Metoclopramide 10 Mg/2 Ml Vial IVP 5 mg Q6HR PRN Administration Nausea / Vomiting Midodrine 2.5 mg 07/04/21 08:00 07/06/21 16:20 Midodrine 2.5 Mg Tablet PO 2.5 mg TIDWM JONNATHAN Administration Multivitamins/Minerals 1 tab 07/04/21 12:00 07/06/21 07:48 Multivitamin W/Minerals Tablet PO 1 tab DAILYWM JONNATHAN Administration Ondansetron HCl 4 mg 07/01/21 12:57 07/02/21 10:45 Ondansetron Odt 4 Mg Tablet TL 4 mg Q6HR PRN Administration Nausea / Vomiting Ondansetron HCl 4 mg 07/01/21 12:57 07/03/21 00:08 Ondansetron 4 Mg/2 Ml Vial IVP 4 mg Q6HR PRN Administration Nausea / Vomiting Oxycodone HCl 5 mg 07/01/21 12:57 07/04/21 05:31 Oxycodone 5 Mg Tablet PO 5 mg Q4HR PRN Administration Pain 5 to 7 Ranolazine Er [ 1 each 07/04/21 21:00 07/06/21 20:16 Ranexa] 500 Mg PO 1 each Tablet BID JONNATHAN Administration Polyethylene Glycol 17 gm 07/06/21 09:00 07/06/21 08:04 Polyethylene Glycol 3350 17 Gm Packet PO 17 gm DAILY JONNATHAN Administration Saccharomyces Boulardii 250 mg 07/04/21 17:00 07/06/21 16:21 Saccharomyces Boulardii 250 Mg Capsule PO 250 mg BIDWM JONNATHAN Administration Sodium Chloride 10 ml 07/01/21 12:57 07/06/21 14:02 Sodium Chloride Flush 0.9% 10 Ml Syringe IVP 10 ml PRN PRN Administration NEEDED PER PROVIDER ORDERS Sodium Chloride 10 ml 07/01/21 17:00 07/07/21 00:41 Sodium Chloride Flush 0.9% 10 Ml Syringe IVP 10 ml 0100,0900,1700 JONNATHAN Administration Tamsulosin HCl 0.4 mg 07/04/21 01:54 07/06/21 07:48 Tamsulosin 0.4 Mg Capsule PO 0.4 mg DAILY JONNATHAN Administration - Lab Result Fish Bone Diagrams: 07/07/21 05:23 07/07/21 05:23 - Additional Planning My Orders: My Active Orders 07/06/21 09:00 Digoxin [Lanoxin] 125 mcg PO DAILY 07/08/21 05:00 BMP - BASIC METABOLIC PANEL [CHEM] DAILYLAB CBC - COMP BLD CT W/AUTO DIFF [HEME] DAILYLAB 07/09/21 05:00 BMP - BASIC METABOLIC PANEL [CHEM] DAILYLAB CBC - COMP BLD CT W/AUTO DIFF [HEME] DAILYLAB 07/10/21 05:00 BMP - BASIC METABOLIC PANEL [CHEM] DAILYLAB CBC - COMP BLD CT W/AUTO DIFF [HEME] DAILYLAB 07/11/21 05:00 BMP - BASIC METABOLIC PANEL [CHEM] DAILYLAB CBC - COMP BLD CT W/AUTO DIFF [HEME] DAILYLAB 07/12/21 05:00 BMP - BASIC METABOLIC PANEL [CHEM] DAILYLAB CBC - COMP BLD CT W/AUTO DIFF [HEME] DAILYLAB 07/13/21 05:00 BMP - BASIC METABOLIC PANEL [CHEM] DAILYLAB CBC - COMP BLD CT W/AUTO DIFF [HEME] DAILYLAB Subjective - Subjective Patient Reports: Other (Resting comfortably in bed. Breathing comfortably on room air. Reported feeling cold. Mild crackles on auscultation of lungs. No lower extremity edema.) Objective Vital Signs: Vital Signs - 24 hr 07/06/21 07/06/21 07/06/21 08:18 12:00 15:37 Temperature 36.7 C 36.6 C 36.7 C Heart Rate [ 49 L 109 H 64 Brachial] Respiratory 18 20 20 Rate Blood Pressure 96/45 L 100/56 L 105/49 L [Right Brachial artery] O2 Saturation 95 95 95 07/06/21 07/07/21 07/07/21 20:00 00:00 05:13 Temperature 37.7 C 37.4 C 37 C Heart Rate [ 64 91 71 Brachial] Respiratory 20 20 18 Rate Blood Pressure 104/51 L 102/48 L 94/60 [Right Brachial artery] O2 Saturation 100 95 95 07/07/21 07:31 Temperature 36.7 C Heart Rate [ 77 Brachial] Respiratory 20 Rate Blood Pressure 133/106 H [Right Brachial artery] O2 Saturation 93 Oxygen O2 Source Room air I&O (Last 24 Hrs): Intake and Output Totals x24h 07/05/21 07/06/21 07/07/21 23:59 23:59 23:59 Intake Total 1150 897 0 Output Total 1250 3645 375 Balance -100 -578 -375 Comments/Notes: General: Alert, Oriented x3, Cooperative, No acute distress HEENT: PERRLA, EOMI Neck: Supple, No JVD Neuro: Alert Cardiovascular: Regular rate Respiratory: Other ( Mild crackles) Abdomen: Normal bowel sounds, Soft, No tenderness, No masses Extremities: No clubbing, No cyanosis, No edema Skin: No rashes, No breakdown, No significant lesion - Results Results: Laboratory Results WBC 7.6 x10^3/uL (4.8-10.8) 07/07/21 05:23 RBC 3.56 10^6/uL (4.70-6.10) L 07/07/21 05:23 Hgb 10.7 g/dL (14.0-18.0) L 07/07/21 05:23 Hct 32.0 % (42.0-52.0) L 07/07/21 05:23 MCV 89.9 fL (80.0-94.0) 07/07/21 05:23 MCH 30.1 pg (27.0-31.0) 07/07/21 05:23 MCHC 33.4 g/dL (32.0-36.0) 07/07/21 05:23 RDW 18.8 % (12.0-15.0) H 07/07/21 05:23 Plt Count 191 10^3/uL (130-450) 07/07/21 05:23 MPV 10.7 fL (7.4-11.4) 07/07/21 05:23 Neut # (Auto) 5.3 10^3/uL (1.5-6.6) 07/07/21 05:23 Lymph # (Auto) 0.9 10^3/uL (1.5-3.5) L 07/07/21 05:23 [place] # (Auto) 0.7 10^3/uL (0.0-1.0) 07/07/21 05:23 Eos # (Auto) 0.6 10^3/uL (0.0-0.7) 07/07/21 05:23 Baso # (Auto) 0.1 10^3/uL (0.0-0.1) 07/07/21 05:23 Absolute Nucleated RBC 0.00 x10^3/uL 07/07/21 05:23 Nucleated RBC % 0.0 /100WBC 07/07/21 05:23 Sodium 135 mmol/L (135-145) 07/07/21 05:23 Potassium 4.0 mmol/L (3.5-5.0) 07/07/21 05:23 Chloride 102 mmol/L (101-111) 07/07/21 05:23 Carbon Dioxide 21 mmol/L (21-32) 07/07/21 05:23 Anion Gap 12.0 (6-13) 07/07/21 05:23 BUN 65 mg/dL (6-20) H 07/07/21 05:23 Creatinine 2.8 mg/dL (0.6-1.2) H 07/07/21 05:23 Estimated GFR (MDRD) 22 (>89) L 07/07/21 05:23 Glucose 91 mg/dL (70-100) 07/07/21 05:23 Estimat Average Glucose 103 mg/dL (70-100) H 07/02/21 05:15 Hemoglobin A1c % 5.2 % (4.27-6.07) 07/02/21 05:15 Lactic Acid 1.3 mmol/L (0.5-2.2) 07/01/21 12:08 Calcium 8.5 mg/dL (8.5-10.3) 07/07/21 05:23 Phosphorus 3.4 mg/dL (2.5-4.6) 07/03/21 01:30 Magnesium 2.3 mg/dL (1.7-2.8) 07/03/21 01:30 Total Bilirubin 1.4 mg/dL (0.2-1.0) H 07/01/21 10:29 AST 24 IU/L (10-42) 07/01/21 10:29 ALT 17 IU/L (10-60) 07/01/21 10:29 Alkaline Phosphatase 126 IU/L (42-121) H 07/01/21 10:29 Troponin I High Sens 39.6 ng/L (2.3-19.7) H* 07/03/21 01:34 B-Natriuretic Peptide 2478 pg/mL (5-100) H 07/06/21 06:13 Total Protein 6.6 g/dL (6.7-8.2) L 07/01/21 10:29 Albumin 3.1 g/dL (3.2-5.5) L 07/01/21 10:29 Globulin 3.5 g/dL (2.1-4.2) 07/01/21 10:29 Albumin/Globulin Ratio 0.9 (1.0-2.2) L 07/01/21 10:29 Lipase 26 U/L (22-51) 07/01/21 10:29 TSH 6.70 uIU/mL (0.34-5.60) H 07/04/21 04:51 Urine Color YELLOW 07/02/21 08:25 Urine Clarity SL. CLOUDY (CLEAR) 07/02/21 08:25 Urine pH 5.0 PH (5.0-7.5) 07/02/21 08:25 Ur Specific [place] 1.010 (1.002-1.030) 07/02/21 08:25 Urine Protein 30 mg/dL (NEGATIVE) H 07/02/21 08:25 Urine Glucose (UA) NEGATIVE mg/dL (NEGATIVE) 07/02/21 08:25 Urine Ketones NEGATIVE mg/dL (NEGATIVE) 07/02/21 08:25 Urine Occult Blood LARGE (NEGATIVE) H 07/02/21 08:25 Urine Nitrite NEGATIVE (NEGATIVE) 07/02/21 08:25 Urine Bilirubin NEGATIVE (NEGATIVE) 07/02/21 08:25 Urine Urobilinogen 0.2 (NORMAL) E.U./dL (NORMAL) 07/02/21 08:25 Ur Leukocyte Esterase LARGE (NEGATIVE) H 07/02/21 08:25 Urine RBC 6-10 /HPF (0-5) H 07/02/21 08:25 Urine WBC >25 /HPF (0-3) H 07/02/21 08:25 Ur Squamous Epith Cells RARE Squamous (<= Few) 07/02/21 08:25 Urine Bacteria Few /HPF (None Seen) 07/02/21 08:25 Ur Microscopic Review INDICATED 07/02/21 08:25 Urine Culture Comments INDICATED 07/02/21 08:25 Nasal Adenovirus (PCR) NOT DETECTED 07/01/21 10:28 Nasal B. parapertussis DNA (PCR) NOT DETECTED 07/01/21 10:28 Nasal Coronavir 229E PCR NOT DETECTED 07/01/21 10:28 Nasal Coronavir HKU1 PCR NOT DETECTED 07/01/21 10:28 Nasal Coronavir NL63 PCR NOT DETECTED 07/01/21 10:28 Nasal Coronavir OC43 PCR NOT DETECTED 07/01/21 10:28 Nasal Enterovir/Rhinovir PCR NOT DETECTED 07/01/21 10:28 Nasal Influenza B PCR NOT DETECTED 07/01/21 10:28 Nasal Influenza A PCR NOT DETECTED 07/01/21 10:28 Nasal Parainfluen 1 PCR NOT DETECTED 07/01/21 10:28 Nasal Parainfluen 2 PCR NOT DETECTED 07/01/21 10:28 Nasal Parainfluen 3 PCR NOT DETECTED 07/01/21 10:28 Nasal Parainfluen 4 PCR NOT DETECTED 07/01/21 10:28 Nasal RSV (PCR) NOT DETECTED 07/01/21 10:28 Nasal B.pertussis DNA PCR NOT DETECTED 07/01/21 10:28 Nasal C.pneumoniae (PCR) NOT DETECTED 07/01/21 10:28 Pillo Human Metapneumo PCR NOT DETECTED 07/01/21 10:28 Nasal M.pneumoniae (PCR) NOT DETECTED 07/01/21 10:28 Nasal SARS-CoV-2 (PCR) NOT DETECTED 07/01/21 10:28 Last Dose Date 07-06-20 07/07/21 05:23 Last Dose Time 0900 07/07/21 05:23 Digoxin 0.7 ng/mL 07/07/21 05:23 Sepsis Event Note (H) - Evaluation Current Stage of Sepsis: Ruled out ABX Reporting Has patient been on IV antibiotics over the past 48 hours?: No
[2021-07-07] MEDS: MIDODRINE 2.5 MG TABLET PO SCH ×3 (08:32→17:19)
[2021-07-07] MEDS: MULTIVITAMIN W/MINERALS TABLET PO SCH (08:44)
[2021-07-07] MEDS: ASPIRIN CHEW 81 MG TABLET PO SCH (08:47)
[2021-07-07] MEDS: carvediloL 3.125 MG TABLET PO SCH ×2 (08:49→21:18)
[2021-07-07] MEDS: LOSARTAN 50 MG TABLET PO SCH (08:52)
[2021-07-07] MEDS: DIGOXIN 125 MCG TABLET PO SCH (08:54)
[2021-07-07] MEDS: DOCUSATE SODIUM 250 MG CAPSULE PO SCH (08:57)
[2021-07-07] MEDS: RANOLAZINE 500 MG PO SCH ×2 (08:58→21:17)
[2021-07-07] MEDS: polyethylene glycoL 3350 17 GM PACKET PO SCH (08:59)
[2021-07-07] MEDS: SENNA 8.6 MG TABLET PO SCH (09:28)
[2021-07-07] MEDS: TAMSULOSIN 0.4 MG CAPSULE PO SCH (09:29)
[2021-07-07] MEDS: SACCHAROMYCES BOULARDII 250 MG CAPSULE PO SCH ×2 (09:30→17:17)
[2021-07-07] MEDS: SODIUM CHLORIDE FLUSH 0.9% 10 ML SYRINGE IVP PRN (14:02)
[2021-07-07] MEDS: ATORVASTATIN 40 MG TABLET PO SCH (21:18)
[2021-07-08] MEDS: SODIUM CHLORIDE FLUSH 0.9% 10 ML SYRINGE IVP SCH ×3 (01:10→18:03)
[2021-07-08] MEDS: FUROSEMIDE 20 MG/2 ML VIAL IVP SCH (06:36)
[2021-07-08 07:53] LABS: BASOPHILS # (AUTO) 0.1 10^3/uL (0.0-0.1); BASOPHILS % (AUTO) 0.8 %; CALCIUM 8.5 mg/dL (8.5-10.3); EOSINOPHILS # (AUTO) 0.6 10^3/uL (0.0-0.7); EOSINOPHILS % (AUTO) 7.1 %; HCT - HEMATOCRIT 30.7 % (42.0-52.0); HGB - HEMOGLOBIN 10.3 g/dL (14.0-18.0); LYMPHOCYTES # (AUTO) 1.2 10^3/uL (1.5-3.5); LYMPHOCYTES % (AUTO) 13.5 %; MEAN CORPUSCULAR HEMOGLOBIN 29.9 pg (27.0-31.0); MEAN CORPUSCULAR HGB CONC 33.6 g/dL (32.0-36.0); MEAN CORPUSCULAR VOLUME 89.2 fL (80.0-94.0); MEAN PLATELET VOLUME 10.6 fL (7.4-11.4); MONOCYTES # (AUTO) 0.7 10^3/uL (0.0-1.0); MONOCYTES % (AUTO) 8.4 %; NEUTROPHILS % (AUTO) 69.9 %; PLT - PLATELET COUNT 189 10^3/uL (130-450); POTASSIUM 4.1 mmol/L (3.5-5.0); RED BLOOD COUNT 3.44 10^6/uL (4.70-6.10); RED CELL DISTRIBUTION WIDTH 19.1 % (12.0-15.0); WHITE BLOOD COUNT 8.6 x10^3/uL (4.8-10.8)
--- NOTE | 2021-07-08 07:53 | PROVIDER PROGRESS NOTE ---
Assessment/Plan - Problem List (1) Acute on chronic congestive heart failure Qualifiers: Heart failure type: unspecified Qualified Code(s): I50.9 - Heart failure, unspecified Assessment/Plan: Stable Breathing comfortably on room air. Improved SBP ranging 100-130's On Coreg 3.125 mg p.o. twice daily. Digoxin 125mcg daily Lasix 20 mg po twice daily. Losartan 12.5mg po daily Ranexa 500mg po bid Will add spironolactone as blood pressure permits EF on MUGA done 07/05/21 was 26 with diffuse hypokinesia reported Patient's EF in 2019 was 22 Patient has an AICD in place Chest x-ray done 07/08/2021 showed generalized interstitial prominence still pr esent with small left-sided pleural effusion. Cardiomegaly noted still. (2) History of ischemic cardiomyopathy Assessment/Plan: Stable Breathing comfortably on room air. Improved SBP ranging 100-130's On Coreg 3.125 mg p.o. twice daily. Digoxin 125mcg daily Lasix 20 mg po twice daily. Losartan 12.5mg po daily Ranexa 500mg po bid Will add spironolactone as blood pressure permits EF on MUGA done 07/05/21 was 26 with diffuse hypokinesia reported Patient's EF in 2019 was 22 Patient has an AICD in place Chest x-ray done 07/08/2021 showed generalized interstitial prominence still present with small left-sided pleural effusion. Cardiomegaly noted still. (3) Atrial fibrillation Assessment/Plan: History of brain bleed while on an oral anticoagulant. Patient underwent a watchman procedure. On Coreg 3.125 mg p.o. twice daily. (4) SRINIVAS (acute kidney injury) Assessment/Plan: Creatinine 3.0 and GFR 20. Suspect CHF exacerbation is most contributing factor Continuing diuresis with Lasix 20mg po bid. (5) Hypoglycemia Assessment/Plan: Resolved (6) Hyponatremia Assessment/Plan: Resolved. This is likely secondary to hypervolemia with CHF however it was likely exacerbated by administration of D50. Sodium is 135 today. Patient is being diuresed. Will continue to monitor. (7) UTI (urinary tract infection) Qualifiers: Urinary tract infection type: site unspecified Hematuria presence: with hematuria Qualified Code(s): N39.0 - Urinary tract infection, site not specified; R31.9 - Hematuria, unspecified (8) Urinary retention due to benign prostatic hyperplasia Assessment/Plan: On tamsulosin 0.4 mg p.o. daily. Winters catheter discontinued today. Will reevaluate with bladder scans for urinary retention. (10) Vomiting Qualifiers: Vomiting type: bilious vomiting Nausea presence: with nausea Qualified Code(s): R11.14 - Bilious vomiting (11) BPH (benign prostatic hyperplasia) Qualifiers: Lower urinary tract symptom presence: symptoms present Lower urinary tract symptom detail: urinary retention Qualified Code(s): N40.1 - Benign prostatic hyperplasia with lower urinary tract symptoms; R33.8 - Other retention of urine Assessment/Plan: On tamulosin 0.4mg po daily (12) Type 2 diabetes mellitus Qualifiers: Diabetes mellitus shelter insulin use: without long term acute care registered nurse use Diabetes mellitus complication status: with hypoglycemia Diabetes mellitus complication detail: without coma Qualified Code(s): E11.649 - Type 2 diabetes mellitus with hypoglycemia without coma Assessment/Plan: At home patient is on Trulicity and glimepiride. However this is currently on hold due to significant hypoglycemia. Plan to discontinue Trulicity and glimepiride upon discharge. The patient's hemoglobin A1c was 5.2. - Current Meds Current Meds: Current Medications Generic Name Dose Route Start Last Admin Trade Name Freq PRN Reason Stop Dose Admin Acetaminophen 650 mg 07/01/21 12:57 07/04/21 05:31 Acetaminophen 325 Mg Tablet PO 650 mg Q4HR PRN Administration Pain 1 to 4 Aspirin 81 mg 07/02/21 09:00 07/07/21 08:47 Aspirin Chew 81 Mg Tablet PO 81 mg DAILY JONNATHAN Administration Atorvastatin Calcium 80 mg 07/02/21 21:00 07/07/21 21:18 Atorvastatin 40 Mg Tablet PO 80 mg QPM JONNATHAN Administration Carvedilol 3.125 mg 07/05/21 21:00 07/07/21 21:18 Carvedilol 3.125 Mg Tablet PO 3.125 mg BID JONNATHAN Administration Digoxin 125 mcg 07/06/21 09:00 07/07/21 08:54 Digoxin 125 Mcg Tablet PO 125 mcg DAILY JONNATHAN Administration Docusate Sodium 250 - 500 mg 07/07/21 09:00 07/07/21 08:57 Docusate Sodium 250 Mg Capsule PO Not Given DAILY JONNATHAN Furosemide 20 mg 07/06/21 06:00 07/08/21 06:36 Furosemide 20 Mg/2 Ml Vial IVP 20 mg BIDDIURETIC JONNATHAN Administration Losartan Potassium 12.5 mg 07/04/21 09:00 07/07/21 08:52 Losartan 50 Mg Tablet PO Not Given DAILY JONNATHAN Metoclopramide HCl 5 mg 07/02/21 13:36 07/04/21 05:31 Metoclopramide 10 Mg/2 Ml Vial IVP 5 mg Q6HR PRN Administration Nausea / Vomiting Midodrine 2.5 mg 07/04/21 08:00 07/07/21 17:19 Midodrine 2.5 Mg Tablet PO 2.5 mg TIDWM JONNATHAN Administration Multivitamins/Minerals 1 tab 07/04/21 12:00 07/07/21 08:44 Multivitamin W/Minerals Tablet PO 1 tab DAILYWM JONNATHAN Administration Ondansetron HCl 4 mg 07/01/21 12:57 07/02/21 10:45 Ondansetron Odt 4 Mg Tablet TL 4 mg Q6HR PRN Administration Nausea / Vomiting Ondansetron HCl 4 mg 07/01/21 12:57 07/03/21 00:08 Ondansetron 4 Mg/2 Ml Vial IVP 4 mg Q6HR PRN Administration Nausea / Vomiting Oxycodone HCl 5 mg 07/01/21 12:57 07/04/21 05:31 Oxycodone 5 Mg Tablet PO 5 mg Q4HR PRN Administration Pain 5 to 7 Ranolazine Er [ 1 each 07/04/21 21:00 07/07/21 21:17 Ranexa] 500 Mg PO 1 each Tablet BID JONNATHAN Administration Polyethylene Glycol 17 gm 07/06/21 09:00 07/07/21 08:59 Polyethylene Glycol 3350 17 Gm Packet PO Not Given DAILY JONNATHAN Saccharomyces Boulardii 250 mg 07/04/21 17:00 07/07/21 17:17 Saccharomyces Boulardii 250 Mg Capsule PO 250 mg BIDWM JONNATHAN Administration Senna 8.6 - 17.2 mg 07/07/21 09:00 07/07/21 09:28 Senna 8.6 Mg Tablet PO 8.6 mg DAILY JONNATHAN Administration Sodium Chloride 10 ml 07/01/21 12:57 07/07/21 14:02 Sodium Chloride Flush 0.9% 10 Ml Syringe IVP 10 ml PRN PRN Administration NEEDED PER PROVIDER ORDERS Sodium Chloride 10 ml 07/01/21 17:00 07/08/21 01:10 Sodium Chloride Flush 0.9% 10 Ml Syringe IVP Not Given 0100,0900,1700 JONNATHAN Tamsulosin HCl 0.4 mg 07/04/21 01:54 07/07/21 09:29 Tamsulosin 0.4 Mg Capsule PO 0.4 mg DAILY JONNATHAN Administration - Lab Result Fish Bone Diagrams: 07/08/21 06:54 07/08/21 06:54 - Additional Planning My Orders: My Active Orders 07/08/21 06:54 BMP - BASIC METABOLIC PANEL [CHEM] DAILYLAB CBC - COMP BLD CT W/AUTO DIFF [HEME] DAILYLAB 07/09/21 05:00 BMP - BASIC METABOLIC PANEL [CHEM] DAILYLAB CBC - COMP BLD CT W/AUTO DIFF [HEME] DAILYLAB 07/10/21 05:00 BMP - BASIC METABOLIC PANEL [CHEM] DAILYLAB CBC - COMP BLD CT W/AUTO DIFF [HEME] DAILYLAB 07/11/21 05:00 BMP - BASIC METABOLIC PANEL [CHEM] DAILYLAB CBC - COMP BLD CT W/AUTO DIFF [HEME] DAILYLAB 07/12/21 05:00 BMP - BASIC METABOLIC PANEL [CHEM] DAILYLAB CBC - COMP BLD CT W/AUTO DIFF [HEME] DAILYLAB 07/13/21 05:00 BMP - BASIC METABOLIC PANEL [CHEM] DAILYLAB CBC - COMP BLD CT W/AUTO DIFF [HEME] DAILYLAB Subjective - Subjective Patient Reports: Other (Patient resting comfortably in bed at time of exam. He is laying on the flat bed on room air and breathing comfortable. His was at bedside visiting. He denied any complaints.) Objective Vital Signs: Vital Signs - 24 hr 07/07/21 07/07/21 07/07/21 13:00 13:20 14:01 Temperature 36.6 C Heart Rate [ 85 Brachial] Heart Rate [ 68 Monitoring electrodes] Respiratory 18 Rate Blood Pressure [Left Brachial artery] Blood Pressure 87/47 L 96/41 L 108/47 L [Right Brachial artery] O2 Saturation 94 07/07/21 07/07/21 07/08/21 16:09 20:00 00:20 Temperature 36.5 C 36.6 C Heart Rate [ 79 76 Brachial] Heart Rate [ Monitoring electrodes] Respiratory 16 20 Rate Blood Pressure 110/62 [Left Brachial artery] Blood Pressure 99/47 L 98/72 [Right Brachial artery] O2 Saturation 95 95 07/08/21 07/08/21 05:16 07:32 Temperature 36.6 C 36.7 C Heart Rate [ 71 Brachial] Heart Rate [ 80 Monitoring electrodes] Respiratory 18 18 Rate Blood Pressure [Left Brachial artery] Blood Pressure 94/53 L 97/47 L [Right Brachial artery] O2 Saturation 94 93 Oxygen O2 Source Room air I&O (Last 24 Hrs): Intake and Output Totals x24h 07/06/21 07/07/21 07/08/21 23:59 23:59 23:59 Intake Total 897 1090 Output Total 1475 1320 875 Balance -574 -230 -875 General: Alert, Oriented x3, No acute distress HEENT: PERRLA, EOMI Neck: Supple, No JVD Cardiovascular: Regular rate Respiratory: Chest non-tender, No respiratory distress, Other (Mild crackles) Abdomen: Normal bowel sounds, Soft, No tenderness, No masses Extremities: No clubbing, No cyanosis Skin: No rashes, No breakdown - Results Results: Laboratory Results WBC 7.6 x10^3/uL (4.8-10.8) 07/07/21 05:23 RBC 3.56 10^6/uL (4.70-6.10) L 07/07/21 05:23 Hgb 10.7 g/dL (14.0-18.0) L 07/07/21 05:23 Hct 32.0 % (42.0-52.0) L 07/07/21 05:23 MCV 89.9 fL (80.0-94.0) 07/07/21 05:23 MCH 30.1 pg (27.0-31.0) 07/07/21 05:23 MCHC 33.4 g/dL (32.0-36.0) 07/07/21 05:23 RDW 18.8 % (12.0-15.0) H 07/07/21 05:23 Plt Count 191 10^3/uL (130-450) 07/07/21 05:23 MPV 10.7 fL (7.4-11.4) 07/07/21 05:23 Neut # (Auto) 5.3 10^3/uL (1.5-6.6) 07/07/21 05:23 Lymph # (Auto) 0.9 10^3/uL (1.5-3.5) L 07/07/21 05:23 O'Brien # (Auto) 0.7 10^3/uL (0.0-1.0) 07/07/21 05:23 Eos # (Auto) 0.6 10^3/uL (0.0-0.7) 07/07/21 05:23 Baso # (Auto) 0.1 10^3/uL (0.0-0.1) 07/07/21 05:23 Absolute Nucleated RBC 0.00 x10^3/uL 07/07/21 05:23 Nucleated RBC % 0.0 /100WBC 07/07/21 05:23 Sodium 135 mmol/L (135-145) 07/07/21 05:23 Potassium 4.0 mmol/L (3.5-5.0) 07/07/21 05:23 Chloride 102 mmol/L (101-111) 07/07/21 05:23 Carbon Dioxide 21 mmol/L (21-32) 07/07/21 05:23 Anion Gap 12.0 (6-13) 07/07/21 05:23 BUN 65 mg/dL (6-20) H 07/07/21 05:23 Creatinine 2.8 mg/dL (0.6-1.2) H 07/07/21 05:23 Estimated GFR (MDRD) 22 (>89) L 07/07/21 05:23 Glucose 91 mg/dL (70-100) 07/07/21 05:23 Estimat Average Glucose 103 mg/dL (70-100) H 07/02/21 05:15 Hemoglobin A1c % 5.2 % (4.27-6.07) 07/02/21 05:15 Lactic Acid 1.3 mmol/L (0.5-2.2) 07/01/21 12:08 Calcium 8.5 mg/dL (8.5-10.3) 07/07/21 05:23 Phosphorus 3.4 mg/dL (2.5-4.6) 07/03/21 01:30 Magnesium 2.3 mg/dL (1.7-2.8) 01/10/22 01:30 Total Bilirubin 1.4 mg/dL (0.2-1.0) H 07/01/21 10:29 AST 24 IU/L (10-42) 07/01/21 10:29 ALT 17 IU/L (10-60) 07/01/21 10:29 Alkaline Phosphatase 126 IU/L (42-121) H 07/01/21 10:29 Troponin I High Sens 39.6 ng/L (2.3-19.7) H* 07/03/21 01:34 B-Natriuretic Peptide 2478 pg/mL (5-100) H 07/06/21 06:13 Total Protein 6.6 g/dL (6.7-8.2) L 07/01/21 10:29 Albumin 3.1 g/dL (3.2-5.5) L 07/01/21 10:29 Globulin 3.5 g/dL (2.1-4.2) 07/01/21 10:29 Albumin/Globulin Ratio 0.9 (1.0-2.2) L 07/01/21 10:29 Lipase 26 U/L (22-51) 07/01/21 10:29 TSH 6.70 uIU/mL (0.34-5.60) H 07/04/21 04:51 Urine Color YELLOW 07/02/21 08:25 Urine Clarity SL. CLOUDY (CLEAR) 07/02/21 08:25 Urine pH 5.0 PH (5.0-7.5) 07/02/21 08:25 Ur Specific [place] 1.010 (1.002-1.030) 07/02/21 08:25 Urine Protein 30 mg/dL (NEGATIVE) H 07/02/21 08:25 Urine Glucose (UA) NEGATIVE mg/dL (NEGATIVE) 07/02/21 08:25 Urine Ketones NEGATIVE mg/dL (NEGATIVE) 07/02/21 08:25 Urine Occult Blood LARGE (NEGATIVE) H 07/02/21 08:25 Urine Nitrite NEGATIVE (NEGATIVE) 07/02/21 08:25 Urine Bilirubin NEGATIVE (NEGATIVE) 07/02/21 08:25 Urine Urobilinogen 0.2 (NORMAL) E.U./dL (NORMAL) 07/02/21 08:25 Ur Leukocyte Esterase LARGE (NEGATIVE) H 07/02/21 08:25 Urine RBC 6-10 /HPF (0-5) H 07/02/21 08:25 Urine WBC >25 /HPF (0-3) H 07/02/21 08:25 Ur Squamous Epith Cells RARE Squamous (<= Few) 07/02/21 08:25 Urine Bacteria Few /HPF (None Seen) 07/02/21 08:25 Ur Microscopic Review INDICATED 07/02/21 08:25 Urine Culture Comments INDICATED 07/02/21 08:25 Nasal Adenovirus (PCR) NOT DETECTED 07/01/21 10:28 Nasal B. parapertussis DNA (PCR) NOT DETECTED 07/01/21 10:28 Nasal Coronavir 229E PCR NOT DETECTED 07/01/21 10:28 Nasal Coronavir HKU1 PCR NOT DETECTED 07/01/21 10:28 Nasal Coronavir NL63 PCR NOT DETECTED 07/01/21 10:28 Nasal Coronavir OC43 PCR NOT DETECTED 07/01/21 10:28 Nasal Enterovir/Rhinovir PCR NOT DETECTED 07/01/21 10:28 Nasal Influenza B PCR NOT DETECTED 07/01/21 10:28 Nasal Influenza A PCR NOT DETECTED 07/01/21 10:28 Nasal Parainfluen 1 PCR NOT DETECTED 07/01/21 10:28 Nasal Parainfluen 2 PCR NOT DETECTED 07/01/21 10:28 Nasal Parainfluen 3 PCR NOT DETECTED 07/01/21 10:28 Nasal Parainfluen 4 PCR NOT DETECTED 07/01/21 10:28 Nasal RSV (PCR) NOT DETECTED 07/01/21 10:28 Nasal B.pertussis DNA PCR NOT DETECTED 07/01/21 10:28 Nasal C.pneumoniae (PCR) NOT DETECTED 07/01/21 10:28 [place] Human Metapneumo PCR NOT DETECTED 07/01/21 10:28 Nasal M.pneumoniae (PCR) NOT DETECTED 07/01/21 10:28 Nasal SARS-CoV-2 (PCR) NOT DETECTED 07/01/21 10:28 Last Dose Date 07-06-20 07/07/21 05:23 Last Dose Time 0900 07/07/21 05:23 Digoxin 0.7 ng/mL 07/07/21 05:23 Sepsis Event Note (H) - Evaluation Current Stage of Sepsis: Ruled out ABX Reporting Has patient been on IV antibiotics over the past 48 hours?: No
[2021-07-08] MEDS: MULTIVITAMIN W/MINERALS TABLET PO SCH (08:03)
[2021-07-08] MEDS: ASPIRIN CHEW 81 MG TABLET PO SCH (08:03)
[2021-07-08] MEDS: TAMSULOSIN 0.4 MG CAPSULE PO SCH (08:04)
[2021-07-08] MEDS: RANOLAZINE 500 MG PO SCH ×2 (08:04→21:54)
[2021-07-08] MEDS: MIDODRINE 2.5 MG TABLET PO SCH ×3 (08:04→18:03)
[2021-07-08] MEDS: SACCHAROMYCES BOULARDII 250 MG CAPSULE PO SCH ×2 (08:04→18:03)
[2021-07-08] MEDS: polyethylene glycoL 3350 17 GM PACKET PO SCH (08:08)
[2021-07-08] MEDS: DOCUSATE SODIUM 250 MG CAPSULE PO SCH (08:19)
[2021-07-08] MEDS: SENNA 8.6 MG TABLET PO SCH (08:19)
[2021-07-08] MEDS: LOSARTAN 50 MG TABLET PO SCH (08:23)
[2021-07-08] MEDS: carvediloL 3.125 MG TABLET PO SCH ×2 (11:58→21:53)
[2021-07-08] MEDS: DIGOXIN 125 MCG TABLET PO SCH (11:58)
--- NOTE | 2021-07-08 12:37 | XRAY Report ---
PROCEDURE: Chest 1 View X-Ray INDICATIONS: crackles TECHNIQUE: One view of the chest was acquired. COMPARISON: 07/05/2021, 07/02/2021 FINDINGS: Surgical changes and devices: A stable AICD can be seen. Post CABG changes are seen. Lungs and pleura: There is mild blunting of the left costophrenic angle. No large pneumothorax is see n. Generalized interstitial prominence can be seen. Mediastinum: Mediastinal contours appear normal. Heart size is moderately enlarged. Bones and chest wall: No suspicious bony lesions. Age-appropriate degenerative changes are seen. Overlying soft tissues appear unremarkable. IMPRESSION: Continued CHF is suspected, with cardiomegaly, generalized interstitial prominence, and a small left- sided pleural effusion. Postoperative and degenerative changes are seen. Reviewed by: Lukas Urbina MD on 07/08/2021 11:35 AM [facility] Approved by: Lukas Urbian MD on 07/08/2021 11:35 AM [facility] Station ID: [id number]
[2021-07-08] MEDS: FUROSEMIDE 20 MG TABLET PO SCH (14:02)
[2021-07-08] MEDS: ATORVASTATIN 40 MG TABLET PO SCH (21:54)
[2021-07-09] MEDS: SODIUM CHLORIDE FLUSH 0.9% 10 ML SYRINGE IVP SCH ×3 (02:54→17:12)
[2021-07-09] MEDS: FUROSEMIDE 20 MG TABLET PO SCH ×2 (05:47→15:12)
[2021-07-09 06:51] LABS: BASOPHILS # (AUTO) 0.1 10^3/uL (0.0-0.1); BASOPHILS % (AUTO) 0.7 %; EOSINOPHILS # (AUTO) 0.7 10^3/uL (0.0-0.7); EOSINOPHILS % (AUTO) 7.9 %; HCT - HEMATOCRIT 31.1 % (42.0-52.0); HGB - HEMOGLOBIN 10.4 g/dL (14.0-18.0); LYMPHOCYTES # (AUTO) 1.1 10^3/uL (1.5-3.5); LYMPHOCYTES % (AUTO) 12.8 %; MEAN CORPUSCULAR HEMOGLOBIN 29.8 pg (27.0-31.0); MEAN CORPUSCULAR HGB CONC 33.4 g/dL (32.0-36.0); MEAN CORPUSCULAR VOLUME 89.1 fL (80.0-94.0); MEAN PLATELET VOLUME 10.8 fL (7.4-11.4); MONOCYTES # (AUTO) 0.9 10^3/uL (0.0-1.0); MONOCYTES % (AUTO) 9.9 %; NEUTROPHILS % (AUTO) 68.1 %; PLT - PLATELET COUNT 183 10^3/uL (130-450); RED BLOOD COUNT 3.49 10^6/uL (4.70-6.10); RED CELL DISTRIBUTION WIDTH 18.9 % (12.0-15.0); WHITE BLOOD COUNT 8.9 x10^3/uL (4.8-10.8)
[2021-07-09 07:02] LABS: CALCIUM 8.6 mg/dL (8.5-10.3); CREATININE 2.9 mg/dL (0.6-1.2); POTASSIUM 4.2 mmol/L (3.5-5.0)
--- NOTE | 2021-07-09 07:41 | PROVIDER PROGRESS NOTE ---
Assessment/Plan - Problem List (1) Acute on chronic congestive heart failure Qualifiers: Heart failure type: unspecified Qualified Code(s): I50.9 - Heart failure, unspecified Assessment/Plan: Stable Breathing comfortably on room air. Improved SBP ranging 100-130's On Coreg 3.125 mg p.o. twice daily. Digoxin 125mcg daily Lasix 20 mg po twice daily. Losartan 12.5mg po daily Ranexa 500mg po bid Will add spironolactone as blood pressure permits EF on MUGA done 07/05/21 was 26 with diffuse hypokinesia reported Patient's EF in 2019 was 22 Patient has an AICD in place Chest x-ray done 07/08/2021 showed generalized interstitial prominence still pr esent with small left-sided pleural effusion. Cardiomegaly noted still. (2) History of ischemic cardiomyopathy Assessment/Plan: Stable Breathing comfortably on room air. Improved SBP ranging 100-130's On Coreg 3.125 mg p.o. twice daily. Digoxin 125mcg daily Lasix 20 mg po twice daily. Losartan 12.5mg po daily Ranexa 500mg po bid Will add spironolactone as blood pressure permits EF on MUGA done 07/05/21 was 26 with diffuse hypokinesia reported Patient's EF in 2019 was 22 Patient has an AICD in place Chest x-ray done 07/08/2021 showed generalized interstitial prominence still present with small left-sided pleural effusion. Cardiomegaly noted still. (3) Atrial fibrillation Assessment/Plan: History of brain bleed while on an oral anticoagulant. Patient underwent a watchman procedure. On Coreg 3.125 mg p.o. twice daily. (4) SRINIVAS (acute kidney injury) Assessment/Plan: Creatinine 2.9 and GFR 21. Suspect CHF exacerbation is most contributing factor Continuing diuresis with Lasix 20mg po bid. (5) Hypoglycemia Assessment/Plan: Resolved (6) Hyponatremia Assessment/Plan: Resolved. This is likely secondary to hypervolemia with CHF however it was likely exacerbated by administration of D50. Sodium is 136 today. Patient is being diuresed. Will continue to monitor. (7) UTI (urinary tract infection) Qualifiers: Urinary tract infection type: site unspecified Hematuria presence: with hematuria Qualified Code(s): N39.0 - Urinary tract infection, site not specified; R31.9 - Hematuria, unspecified (8) Urinary retention due to benign prostatic hyperplasia Assessment/Plan: On tamsulosin 0.4 mg p.o. daily. Winters catheter discontinued 07/08/21 in the afternoon However overnight patient was retaining urine with a bladder scan showing 600 mL of urine postvoid. As a result Winters catheter was replaced on 07/09/2021 morning. Patient will be discharged with a Winters catheter in place. He is expected to follow-up with urology upon discharge. (10) Vomiting Qualifiers: Vomiting type: bilious vomiting Nausea presence: with nausea Qualified Code(s): R11.14 - Bilious vomiting (11) BPH (benign prostatic hyperplasia) Qualifiers: Lower urinary tract symptom presence: symptoms present Lower urinary tract symptom detail: urinary retention Qualified Code(s): N40.1 - Benign prostatic hyperplasia with lower urinary tract symptoms; R33.8 - Other retention of urine Assessment/Plan: On tamulosin 0.4mg po daily (12) Type 2 diabetes mellitus Qualifiers: Diabetes mellitus regional intermodal truck driver insulin use: without regional intermodal truck driver use Diabetes mellitus complication status: with hypoglycemia Diabetes mellitus complication detail: without coma Qualified Code(s): E11.649 - Type 2 diabetes mellitus with hypoglycemia without coma Assessment/Plan: At home patient is on Trulicity and glimepiride. However this is currently on hold due to significant hypoglycemia. Plan to discontinue Trulicity and glimepiride upon discharge. The patient's hemoglobin A1c was 5.2. - Current Meds Current Meds: Current Medications Generic Name Dose Route Start Last Admin Trade Name Darielq PRN Reason Stop Dose Admin Acetaminophen 650 mg 07/01/21 12:57 07/04/21 05:31 Acetaminophen 325 Mg Tablet PO 650 mg Q4HR PRN Administration Pain 1 to 4 Aspirin 81 mg 07/02/21 09:00 07/08/21 08:03 Aspirin Chew 81 Mg Tablet PO 81 mg DAILY JONNATHAN Administration Atorvastatin Calcium 80 mg 07/02/21 21:00 07/08/21 21:54 Atorvastatin 40 Mg Tablet PO 80 mg QPM JONNATHAN Administration Carvedilol 3.125 mg 07/05/21 21:00 07/08/21 21:53 Carvedilol 3.125 Mg Tablet PO 3.125 mg BID JONNATHAN Administration Digoxin 125 mcg 07/06/21 09:00 07/08/21 11:58 Digoxin 125 Mcg Tablet PO 125 mcg DAILY JONNATHAN Administration Docusate Sodium 250 - 500 mg 07/07/21 09:00 07/08/21 08:19 Docusate Sodium 250 Mg Capsule PO Not Given DAILY JONNATHAN Furosemide 20 mg 07/08/21 14:00 07/09/21 05:47 Furosemide 20 Mg Tablet PO 20 mg BIDDIURETIC JONNATHAN Administration Losartan Potassium 12.5 mg 07/04/21 09:00 07/08/21 08:23 Losartan 50 Mg Tablet PO Not Given DAILY JONNATHAN Metoclopramide HCl 5 mg 07/02/21 13:36 07/04/21 05:31 Metoclopramide 10 Mg/2 Ml Vial IVP 5 mg Q6HR PRN Administration Nausea / Vomiting Midodrine 2.5 mg 07/04/21 08:00 07/08/21 18:03 Midodrine 2.5 Mg Tablet PO 2.5 mg TIDWM JONNATHAN Administration Multivitamins/Minerals 1 tab 07/04/21 12:00 07/08/21 08:03 Multivitamin W/Minerals Tablet PO 1 tab DAILYWM JONNATHAN Administration Ondansetron HCl 4 mg 07/01/21 12:57 07/02/21 10:45 Ondansetron Odt 4 Mg Tablet TL 4 mg Q6HR PRN Administration Nausea / Vomiting Ondansetron HCl 4 mg 07/01/21 12:57 07/03/21 00:08 Ondansetron 4 Mg/2 Ml Vial IVP 4 mg Q6HR PRN Administration Nausea / Vomiting Oxycodone HCl 5 mg 07/01/21 12:57 07/04/21 05:31 Oxycodone 5 Mg Tablet PO 5 mg Q4HR PRN Administration Pain 5 to 7 Ranolazine Er [ 1 each 07/04/21 21:00 07/08/21 21:54 Ranexa] 500 Mg PO 1 each Tablet BID JONNATHAN Administration Polyethylene Glycol 17 gm 07/06/21 09:00 07/08/21 08:08 Polyethylene Glycol 3350 17 Gm Packet PO 17 gm DAILY JONNATHAN Administration Saccharomyces Boulardii 250 mg 07/04/21 17:00 07/08/21 18:03 Saccharomyces Boulardii 250 Mg Capsule PO 250 mg BIDWM JONNATHAN Administration Senna 8.6 - 17.2 mg 07/07/21 09:00 07/08/21 08:19 Senna 8.6 Mg Tablet PO Not Given DAILY JONNATHAN Sodium Chloride 10 ml 07/01/21 12:57 07/07/21 14:02 Sodium Chloride Flush 0.9% 10 Ml Syringe IVP 10 ml PRN PRN Administration NEEDED PER PROVIDER ORDERS Sodium Chloride 10 ml 07/01/21 17:00 07/09/21 02:54 Sodium Chloride Flush 0.9% 10 Ml Syringe IVP 10 ml 0100,0900,1700 JONNATHAN Administration Tamsulosin HCl 0.4 mg 07/04/21 01:54 07/08/21 08:04 Tamsulosin 0.4 Mg Capsule PO 0.4 mg DAILY JONNATHAN Administration - Lab Result Fish Bone Diagrams: 07/09/21 06:00 07/09/21 06:00 - Additional Planning My Orders: My Active Orders 07/08/21 14:00 Furosemide [Lasix] 20 mg PO BIDDIURETIC 07/09/21 07:11 Winters Continuation and Care [RC] QSHIFT Winters Insertion [RC] QSHIFT 07/10/21 05:00 BMP - BASIC METABOLIC PANEL [CHEM] DAILYLAB CBC - COMP BLD CT W/AUTO DIFF [HEME] DAILYLAB 07/11/21 05:00 BMP - BASIC METABOLIC PANEL [CHEM] DAILYLAB CBC - COMP BLD CT W/AUTO DIFF [HEME] DAILYLAB 07/12/21 05:00 BMP - BASIC METABOLIC PANEL [CHEM] DAILYLAB CBC - COMP BLD CT W/AUTO DIFF [HEME] DAILYLAB 07/13/21 05:00 BMP - BASIC METABOLIC PANEL [CHEM] DAILYLAB CBC - COMP BLD CT W/AUTO DIFF [HEME] DAILYLAB Subjective - Subjective Patient Reports: Other (Resting comfortably in bed denied chest pain, dyspnea. Denies any other complaints. Patient had urinary retention after Winters catheter was removed yesterday.) Objective Vital Signs: Vital Signs - 24 hr 07/08/21 07/08/21 07/08/21 11:23 16:03 21:00 Temperature 36.4 C L 36.4 C L 36.5 C Heart Rate [ 66 70 Brachial] Heart Rate [ 75 Monitoring electrodes] Respiratory 18 20 20 Rate Blood Pressure 92/48 L 103/49 L 110/49 L [Left Brachial artery] Blood Pressure [Right Brachial artery] O2 Saturation 92 96 95 07/08/21 07/09/21 23:53 05:00 Temperature 36.6 C 36.5 C Heart Rate [ 73 Brachial] Heart Rate [ 67 Monitoring electrodes] Respiratory 20 16 Rate Blood Pressure [Left Brachial artery] Blood Pressure 108/57 L 102/50 L [Right Brachial artery] O2 Saturation 94 94 Oxygen O2 Source Room air I&O (Last 24 Hrs): Intake and Output Totals x24h 07/07/21 07/08/21 07/09/21 23:59 23:59 23:59 Intake Total 1090 940 Output Total 1320 1950 Balance -230 -1010 Comments/Notes: General: Alert, Oriented x3, No acute distress HEENT: PERRLA, EOMI Neck: Supple, No JVD Cardiovascular: Regular rate Respiratory: Chest non-tender, No respiratory distress, Other (Mild crackles) Abdomen: Normal bowel sounds, Soft, No tenderness, No masses Extremities: No clubbing, No cyanosis, No edema Skin: No rashes, No breakdown - Results Results: Laboratory Results WBC 8.9 x10^3/uL (4.8-10.8) 07/09/21 06:00 RBC 3.49 10^6/uL (4.70-6.10) L 07/09/21 06:00 Hgb 10.4 g/dL (14.0-18.0) L 07/09/21 06:00 Hct 31.1 % (42.0-52.0) L 07/09/21 06:00 MCV 89.1 fL (80.0-94.0) 07/09/21 06:00 MCH 29.8 pg (27.0-31.0) 07/09/21 06:00 MCHC 33.4 g/dL (32.0-36.0) 07/09/21 06:00 RDW 18.9 % (12.0-15.0) H 07/09/21 06:00 Plt Count 183 10^3/uL (130-450) 07/09/21 06:00 MPV 10.8 fL (7.4-11.4) 07/09/21 06:00 Neut # (Auto) 6.0 10^3/uL (1.5-6.6) 07/09/21 06:00 Lymph # (Auto) 1.1 10^3/uL (1.5-3.5) L 07/09/21 06:00 [place] # (Auto) 0.9 10^3/uL (0.0-1.0) 07/09/21 06:00 Eos # (Auto) 0.7 10^3/uL (0.0-0.7) 07/09/21 06:00 Baso # (Auto) 0.1 10^3/uL (0.0-0.1) 07/09/21 06:00 Absolute Nucleated RBC 0.00 x10^3/uL 07/09/21 06:00 Nucleated RBC % 0.0 /100WBC 07/09/21 06:00 Sodium 136 mmol/L (135-145) 07/09/21 06:00 Potassium 4.2 mmol/L (3.5-5.0) 07/09/21 06:00 Chloride 101 mmol/L (101-111) 07/09/21 06:00 Carbon Dioxide 24 mmol/L (21-32) 07/09/21 06:00 Anion Gap 11.0 (6-13) 07/09/21 06:00 BUN 64 mg/dL (6-20) H 07/09/21 06:00 Creatinine 2.9 mg/dL (0.6-1.2) H 07/09/21 06:00 Estimated GFR (MDRD) 21 (>89) L 07/09/21 06:00 Glucose 106 mg/dL (70-100) H 07/09/21 06:00 Estimat Average Glucose 103 mg/dL (70-100) H 07/02/21 05:15 Hemoglobin A1c % 5.2 % (4.27-6.07) 07/02/21 05:15 Lactic Acid 1.3 mmol/L (0.5-2.2) 07/01/21 12:08 Calcium 8.6 mg/dL (8.5-10.3) 07/09/21 06:00 Phosphorus 3.4 mg/dL (2.5-4.6) 07/03/21 01:30 Magnesium 2.3 mg/dL (1.7-2.8) 07/03/21 01:30 Total Bilirubin 1.4 mg/dL (0.2-1.0) H 07/01/21 10:29 AST 24 IU/L (10-42) 07/01/21 10:29 ALT 17 IU/L (10-60) 07/01/21 10:29 Alkaline Phosphatase 126 IU/L (42-121) H 07/01/21 10:29 Troponin I High Sens 39.6 ng/L (2.3-19.7) H* 07/03/21 01:34 B-Natriuretic Peptide 2478 pg/mL (5-100) H 07/06/21 06:13 Total Protein 6.6 g/dL (6.7-8.2) L 07/01/21 10:29 Albumin 3.1 g/dL (3.2-5.5) L 07/01/21 10:29 Globulin 3.5 g/dL (2.1-4.2) 07/01/21 10:29 Albumin/Globulin Ratio 0.9 (1.0-2.2) L 07/01/21 10:29 Lipase 26 U/L (22-51) 07/01/21 10:29 TSH 6.70 uIU/mL (0.34-5.60) H 07/04/21 04:51 Urine Color YELLOW 07/02/21 08:25 Urine Clarity SL. CLOUDY (CLEAR) 07/02/21 08:25 Urine pH 5.0 PH (5.0-7.5) 07/02/21 08:25 Ur Specific [place] 1.010 (1.002-1.030) 07/02/21 08:25 Urine Protein 30 mg/dL (NEGATIVE) H 07/02/21 08:25 Urine Glucose (UA) NEGATIVE mg/dL (NEGATIVE) 07/02/21 08:25 Urine Ketones NEGATIVE mg/dL (NEGATIVE) 07/02/21 08:25 Urine Occult Blood LARGE (NEGATIVE) H 07/02/21 08:25 Urine Nitrite NEGATIVE (NEGATIVE) 07/02/21 08:25 Urine Bilirubin NEGATIVE (NEGATIVE) 07/02/21 08:25 Urine Urobilinogen 0.2 (NORMAL) E.U./dL (NORMAL) 07/02/21 08:25 Ur Leukocyte Esterase LARGE (NEGATIVE) H 07/02/21 08:25 Urine RBC 6-10 /HPF (0-5) H 07/02/21 08:25 Urine WBC >25 /HPF (0-3) H 07/02/21 08:25 Ur Squamous Epith Cells RARE Squamous (<= Few) 07/02/21 08:25 Urine Bacteria Few /HPF (None Seen) 07/02/21 08:25 Ur Microscopic Review INDICATED 07/02/21 08:25 Urine Culture Comments INDICATED 07/02/21 08:25 Nasal Adenovirus (PCR) NOT DETECTED 07/01/21 10:28 Nasal B. parapertussis DNA (PCR) NOT DETECTED 07/01/21 10:28 Nasal Coronavir 229E PCR NOT DETECTED 07/01/21 10:28 Nasal Coronavir HKU1 PCR NOT DETECTED 07/01/21 10:28 Nasal Coronavir NL63 PCR NOT DETECTED 07/01/21 10:28 Nasal Coronavir OC43 PCR NOT DETECTED 07/01/21 10:28 Nasal Enterovir/Rhinovir PCR NOT DETECTED 07/01/21 10:28 Nasal Influenza B PCR NOT DETECTED 07/01/21 10:28 Nasal Influenza A PCR NOT DETECTED 07/01/21 10:28 Nasal Parainfluen 1 PCR NOT DETECTED 07/01/21 10:28 Nasal Parainfluen 2 PCR NOT DETECTED 07/01/21 10:28 Nasal Parainfluen 3 PCR NOT DETECTED 07/01/21 10:28 Nasal Parainfluen 4 PCR NOT DETECTED 07/01/21 10:28 Nasal RSV (PCR) NOT DETECTED 07/01/21 10:28 Nasal B.pertussis DNA PCR NOT DETECTED 07/01/21 10:28 Nasal C.pneumoniae (PCR) NOT DETECTED 07/01/21 10:28 Pillo Human Metapneumo PCR NOT DETECTED 07/01/21 10:28 Nasal M.pneumoniae (PCR) NOT DETECTED 07/01/21 10:28 Nasal SARS-CoV-2 (PCR) NOT DETECTED 07/01/21 10:28 Last Dose Date 07-06-20 07/07/21 05:23 Last Dose Time 0900 07/07/21 05:23 Digoxin 0.7 ng/mL 07/07/21 05:23 Sepsis Event Note (H) - Evaluation Current Stage of Sepsis: Ruled out ABX Reporting Has patient been on IV antibiotics over the past 48 hours?: No
[2021-07-09] MEDS: polyethylene glycoL 3350 17 GM PACKET PO SCH (08:44)
[2021-07-09] MEDS: LOSARTAN 50 MG TABLET PO SCH (08:45)
[2021-07-09] MEDS: MIDODRINE 2.5 MG TABLET PO SCH ×3 (08:45→17:12)
[2021-07-09] MEDS: carvediloL 3.125 MG TABLET PO SCH ×2 (08:45→21:24)
[2021-07-09] MEDS: DIGOXIN 125 MCG TABLET PO SCH (08:45)
[2021-07-09] MEDS: SACCHAROMYCES BOULARDII 250 MG CAPSULE PO SCH ×2 (08:45→17:12)
[2021-07-09] MEDS: MULTIVITAMIN W/MINERALS TABLET PO SCH (08:45)
[2021-07-09] MEDS: ASPIRIN CHEW 81 MG TABLET PO SCH (08:45)
[2021-07-09] MEDS: SENNA 8.6 MG TABLET PO SCH (08:46)
[2021-07-09] MEDS: DOCUSATE SODIUM 250 MG CAPSULE PO SCH (08:46)
[2021-07-09] MEDS: RANOLAZINE 500 MG PO SCH ×2 (08:46→21:25)
[2021-07-09] MEDS: TAMSULOSIN 0.4 MG CAPSULE PO SCH (08:46)
[2021-07-09] MEDS ORDERED: ZINC OXIDE 20% OINT 30 GM TUBE TOP PRN (19:45)
[2021-07-09] MEDS: ATORVASTATIN 40 MG TABLET PO SCH (21:24)
[2021-07-10] MEDS: SODIUM CHLORIDE FLUSH 0.9% 10 ML SYRINGE IVP SCH ×2 (00:12→08:18)
[2021-07-10 06:30] LABS: BASOPHILS % (AUTO) 0.4 %; EOSINOPHILS # (AUTO) 0.6 10^3/uL (0.0-0.7); EOSINOPHILS % (AUTO) 6.7 %; HCT - HEMATOCRIT 29.3 % (42.0-52.0); HGB - HEMOGLOBIN 9.9 g/dL (14.0-18.0); LYMPHOCYTES # (AUTO) 1.2 10^3/uL (1.5-3.5); LYMPHOCYTES % (AUTO) 13.1 %; MEAN CORPUSCULAR HGB CONC 33.8 g/dL (32.0-36.0); MEAN CORPUSCULAR VOLUME 88.8 fL (80.0-94.0); MEAN PLATELET VOLUME 10.6 fL (7.4-11.4); MONOCYTES # (AUTO) 0.9 10^3/uL (0.0-1.0); MONOCYTES % (AUTO) 9.5 %; NEUTROPHILS # (AUTO) 6.3 10^3/uL (1.5-6.6); PLT - PLATELET COUNT 175 10^3/uL (130-450); RED CELL DISTRIBUTION WIDTH 18.9 % (12.0-15.0); WHITE BLOOD COUNT 9.1 x10^3/uL (4.8-10.8)
[2021-07-10 06:43] LABS: CALCIUM 8.5 mg/dL (8.5-10.3); POTASSIUM 4.3 mmol/L (3.5-5.0)
[2021-07-10] MEDS: MIDODRINE 2.5 MG TABLET PO SCH ×2 (08:17→13:29)
[2021-07-10] MEDS: SACCHAROMYCES BOULARDII 250 MG CAPSULE PO SCH (08:17)
[2021-07-10] MEDS: ASPIRIN CHEW 81 MG TABLET PO SCH (08:17)
[2021-07-10] MEDS: MULTIVITAMIN W/MINERALS TABLET PO SCH (08:17)
[2021-07-10] MEDS: polyethylene glycoL 3350 17 GM PACKET PO SCH (08:18)
[2021-07-10] MEDS: TAMSULOSIN 0.4 MG CAPSULE PO SCH (08:18)
[2021-07-10] MEDS: LOSARTAN 50 MG TABLET PO SCH (08:20)
[2021-07-10] MEDS: DIGOXIN 125 MCG TABLET PO SCH (08:20)
[2021-07-10] MEDS: DOCUSATE SODIUM 250 MG CAPSULE PO SCH (08:20)
[2021-07-10] MEDS: RANOLAZINE 500 MG PO SCH (08:22)
[2021-07-10] MEDS: carvediloL 3.125 MG TABLET PO SCH (08:22)
[2021-07-10] MEDS: SENNA 8.6 MG TABLET PO SCH (08:23)
[2021-07-10] MEDS ORDERED: FUROSEMIDE 20 MG TABLET PO SCH (09:00)
--- NOTE | 2021-07-10 11:39 | DISCHARGE SUMMARY ---
Discharge Summary Admit Date: 07/01/21 Discharge Date: 07/10/21 Discharging Provider: Mimi Vasques Primary Care Provider: Tavares Zamora Code Status: Do Not Attempt Resuscitation Condition at Discharge: Stable Discharge Disposition: 06 Home Health Service - DIAGNOSES Admission Diagnoses: Acute kidney injury Urinary retention due to benign prostatic hyperplasia BPH Generalized weakness Hypoglycemia Type 2 diabetes mellitus History of coronary artery disease History of atrial fibrillation Acute on chronic congestive heart failure History of hemorrhagic CVA Discharge Diagnoses with Status of Each Condition: Acute on chronic congestive heart failure: Improved History of ischemic cardiomyopathy History of atrial fibrillation Acute kidney injury: Acute on Chronic. Worsened renal function Hypoglycemia: Acute Resolved. Hyponatremia: Acute. Resolved UTI: No growth on urine cultures Urinary retention due to benign prostatic hyperplasia: Retention also possibly due to problem with bladder muscle. Patient had bladder neurostimulator placed about 11 years ago which may be malfunctioning. To follow-up with nephrology an d/all urology. BPH Type 2 diabetes mellitus: Hemoglobin A1c 5.3. Patient no longer diabetic. Trulicity and Amaryl discontinued. Generalized weakness: Improved. Home with home health PT. History of coronary artery disease: Continue home medications History of hemorrhagic CVA - HPI History of Present Illness: Mr. Jefferson Watson is a very pleasant 85 year old male with extensive medical hx that includes BPH, CAD s/p CABG (1987), afib, hemorrhagic CVA (2010), and T2DM brought into the ED by his due to concerns of general weakness and that he was less alert this morning. He is currently alert and oriented to self, date and location but unable to tell me why he is here, so history for this presentation is obtained via chart review and discussion with his . Per report he has had increasing congestion, cough, weakness, and confusion over the past few days. COVID test was negative in the ED. She has noticed over the past week that he has been voiding less frequently and the urine has been brown. This morning he was noted to have low blood sugar both at home and in the ED. Blood sugar was 32 in the ED and he received an amp of D50. He has had decreased oral intake recently (he reports decreased appetite to me), and his attributes this to his data collection technician telling him to decrease his fluid intake a month ago. His diuretics were decreased a few weeks ago and he has started to have increased mild edema in his legs. He is diabetic and was given his Trulicity shot yesterday. His reports he was diagnosed with diabetes a year ago and started on Trulicity. They do not check his blood sugars regularly because it has been normal. In the ED his creatinine was noted to be 3.1 with sodium of 132. His last creatinine found in [facility] is 1.4 on March 2020. He was started on IV fluids with D5W. He was also noted to have a BNP of 1519, troponin of 38.5. His reports an extensive cardiac history, including CHF. Given his acute kidney injury, weakness, reported confusion, and hypoglycemia the decision was m ivana to admit him for further work up. He is afebrile. His heart rate has been 70s-80s and his blood pressures 90s/50-60s. On exam this afternoon his abdomen is soft and distended and he appears to have ascites. Denies abdominal pain. He has audible wheezes in all lung adames but denies dyspnea and his O2 sat is 98% on room air. He denies chest pain, palpitations, dizziness, nausea, dysuria, or difficulty initiating a stream. He is unable to state when he last voided or had a bowel movement but does not currently feel the need to do either. His blood sugar was 32 when checked by the nurse who admitted him to the floor and he was given a second amp of D50 and started on a slow infusion of D50W. A retroperitoneal ultrasound was performed and revealed almost 3000mL of urine in his bladder and a catheter was placed with immediate return of tea colored urine. His reports that when he had a CVA ten years ago he had an indwelling catheter that when removed required them to intermittently catheterize him for 2 months before "something was placed in his back" by a urologist to "help him learn to urinate again." Additionally found on chart review, the Pt was also seen in the ED in March after a fall at home that left him with a left chest wall contusion. He reports he has not fallen since. I discussed goals of care with the Pt and asked if his heart were stop would he want CPR, and would he want to be intubated/have a breathing tube if he were to have difficulty breathing. After thinking a moment he stated he would not want that, "No, I'm old". His reports he has a do not resuscitate order and we will try to get a copy of that. - HOSPITAL COURSE Hospital Course: Patient's blood glucose at the time of admission was as low as 27. For about 2 days he remained significantly hypoglycemic and required several doses of dextrose 50 to maintain his blood sugar. Hemoglobin A1c was 5.3. Patient has been taking Trulicity and Amaryl at home. It may be the case that the patient was diabetic or prediabetic at some point. However he probably has lots significant amount of weight and is not considered diabetic anymore. As a result Trulicity and Amaryl was discontinued upon discharge. Patient's BNP normally runs around 1500. BNP was as high as 2400 while in the hospital. As a result patient was on Lasix 20 mg IV twice daily. He had significant diuresis as a result. He underwent MUGA cardiac imaging study on 07/05/2021 which showed a left ventricular ejection fraction of 26.7. There was decreased contractility with diffuse hypokinesia in the left ventricle. The patient was started on digoxin 125 mcg p.o. daily. He required midodrine 2.5 mg 3 times daily with meals to adequately maintain his blood pressure while diuresing and continuing his Coreg. He was discharged with a prescription of midodrine and digoxin. Throughout the patient's hospital stay his creatinine was mostly between 2.8 and 3.2. This is likely progression of renal function from a baseline creatinine of 1.4 about 2 years ago. This is as a result of progression in his heart failure. Patient was advised to take an extra dose of Lasix if he had greater than 5 pound weight gain in 24 hours. Patient also has urinary retention and had a Winters catheter in place through the course of his hospital stay. Attempt to discontinue the Winters catheter was unsuccessful because a bladder scan showed 600 mL residual post void. It is als o possible that urinary retention is contributing to patient's worsening renal function. He had bladder neurostimulator placed by Dr. Odin Chaudhry 11 years ago. It is possible the neurostimulator is no longer functional. It is expected that the patient will follow-up with his primary care physician Dr. Tavares Zamora who would make referral either to Dr. Odin Chaudhry or to another urologist and or beam racker. Patient was seen by physical therapy and determined suitable for home with home health PT. He mainly needs assistance when initially getting up from bed. Some family members will be living with him and his after discharge. Patient was encouraged to use incentive spirometer as often as possible. He was discharged in stable condition on 07/10/2021. - ALLERGIES Allergies/Adverse Reactions: Allergies Allergy/AdvReac Type Severity Reaction Status Date / Time clopidogrel [From Plavix] Allergy Rash Verified 07/01/21 10:04 sulfur dioxide Allergy Unknown Verified 07/01/21 10:04 - MEDICATIONS Home Medications: Ambulatory Orders Medication Instructions Recorded Confirmed Aspirin Chewable [[place] 81 mg PO DAILY 06/29/19 07/01/21 Aspirin] Atorvastatin Calcium [Lipitor] 80 mg PO DAILY 06/29/19 07/01/21 Isosorbide Mononitrate ER [Imdur] 30 mg PO DAILY 06/29/19 07/01/21 Losartan Potassium 25 mg PO DAILY 06/29/19 07/01/21 Ranolazine [Ranexa] 500 mg PO BID 06/29/19 07/01/21 Tamsulosin [Flomax] 0.4 mg PO DAILY 06/29/19 07/01/21 carvediloL phosphate [Coreg Cr] 20 mg PO DAILY 06/29/19 07/01/21 Furosemide [Lasix] 20 mg PO DAILY 07/01/21 07/01/21 Multivitamin 1 tab PO DAILY 07/01/21 07/01/21 Digoxin [Lanoxin] 125 mcg PO DAILY 30 Days #30 tablet 07/10/21 Midodrine [ProAmatine] 2.5 mg PO TIDWM 20 Days #60 tablet 07/10/21 - PHYSICAL EXAM AT DISCHARGE General Appearance: positive: No acute distress, Alert Eyes Bilateral: positive: PERRL, EOMI ENT: positive: No signs of dehydration Neck: positive: No JVD, Trachea midline Respiratory: positive: Chest non-tender, No respiratory distress, Other (Moderate crackles on auscultation) Cardiovascular: positive: No murmur, Irregularly irregular Abdomen: positive: Non-tender, No organomegaly, Nml bowel sounds, No distention. negative: Guarding, Rebound Back: positive: Nml inspection Skin: positive: Color nml, No rash, Warm, Dry Extremities: positive: Non-tender, Full ROM, Nml appearance, No pedal edema Neurologic/Psychiatric: positive: Mood/affect nml - LABS Result Diagrams: 07/10/21 05:45 07/10/21 05:50 - SEPSIS Current Stage of Sepsis: Ruled out - TIME SPENT Time Spent in Discharge (Minutes): 35
--- NOTE | 2021-07-10 11:44 | Discharge Plan ---
Discharge Plan Problem Reviewed?: Yes Disposition: Home Health Service Condition: Stable Prescriptions: Digoxin [Lanoxin] 125 mcg PO DAILY 30 Days #30 tablet Midodrine [ProAmatine] 2.5 mg PO TIDWM 20 Days #60 tablet Instruction Topics: Catheter Indwelling Urinary Dc Health Concerns: Needed on 07/01/21 with weakness and hypoglycemia. Further work-up showed that you had acute kidney injury. You also had acute on chronic congestive heart failure. Your episode of hypoglycemia persisted for a couple of days and he required several doses of dextrose 50 to maintain your blood sugar. You had been on Trulicity and Amaryl at home however your hemoglobin A1c was 5.3. Upon discharge Trulicity and Amaryl were discontinued. You are not to take this medications any further. Throughout your hospital stay your creatinine has fluctuated between 2.8 and 3.2. It is believed this is due to declining heart function. Your ejection fraction was noted to be 26% on the study. 2 years ago it was about 36% and last year 22%. Digoxin 125 mg p.o. daily was added to your heart medications. You were discharged with a prescription of this. You also required midodrine to maintain your blood pressure appropriately while you received Lasix and your other cardiac medications. You have been diuresed appropriately through the course of your hospital stay. By the time of discharge you were breathing comfortably on room air with oxygen saturation in the mid 90s. You were seen by physical therapy and it was determined that you could be discharged home with home health. As long as there is someone at home to help you with things like initially getting up and out of bed issue to her right. He also had a Winters catheter placed for urinary retention. About 11 years ago you had a bladder neurostimulator placed by Dr. Odin Chaudhry. You have been advised to follow-up with Dr. Odin Chaudhry for reevaluation of the neurostimulator and consult regarding worsening renal function. You will be discharged home with a Winters catheter. It is expected that you will follow-up with your primary care physician Dr. Zamora to make a referral to Dr. Odin Chaudhry's office. It is also expected that you would follow-up with your staffing analyst Dr. Brown The above plan was explained to you while your was at bedside. You both expressed understanding and are agreeable with the plan. You are being discharged in stable condition. No Smoking: If you smoke, Please STOP! Call for help. Follow-up with: CEM ZAMORA MD [Primary Care Provider] -
[2021-07-10 13:34] VITALS: BP 109/35
== END 2021-07-10 13:34 | disposition home health service (06) | DRG 292 ==
LOC: EDUNIT# → ED 09:56 → MS2 12:57
PROVIDERS: ADMIT Registered Nurse; ATTEND Internal Medicine
DX: E11.649 Type 2 diabetes mellitus with hypoglycemia without coma (principal); I11.0 Hypertensive heart disease with heart failure; Z79.84 Long term (current) use of oral hypoglycemic drugs; N17.9 Acute kidney failure, unspecified; E87.1 Hypo-osmolality and hyponatremia; N39.0 Urinary tract infection, site not specified; R18.8 Other ascites; I47.2 Ventricular tachycardia; R06.02 Shortness of breath; N40.0 Benign prostatic hyperplasia without lower urinary tract symptoms; J90 Pleural effusion, not elsewhere classified; I50.9 Heart failure, unspecified; Z87.891 Personal history of nicotine dependence; Z20.822 Contact with and (suspected) exposure to COVID-19; I25.5 Ischemic cardiomyopathy; E16.2 Hypoglycemia, unspecified; I48.91 Unspecified atrial fibrillation; N40.1 Benign prostatic hyperplasia with lower urinary tract symptoms; R33.8 Other retention of urine; R53.1 Weakness; I25.10 Atherosclerotic heart disease of native coronary artery without angina pectoris; Z86.73 Personal history of transient ischemic attack (TIA), and cerebral infarction without residual deficits; Z95.1 Presence of aortocoronary bypass graft; R41.0 Disorientation, unspecified; Z79.899 Other long term (current) drug therapy; R63.0 Anorexia; Z95.810 Presence of automatic (implantable) cardiac defibrillator; R31.9 Hematuria, unspecified; R07.9 Chest pain, unspecified; R11.14 Bilious vomiting; Z66 Do not resuscitate; E87.70 Fluid overload, unspecified
CPT/HCPCS: 36415; 71045; 76770; 78803; 80048; 80053; 80162; 81001; 83036; 83605; 83690; 83735; 83880; 84100; 84443; 84484; 85025; 87086; 87631; 93005; 94640; 96374; 96375; 97116; 97162; 97530; 99284; 99285; A9270; A9512; A9538; J2765; J3490; Q0162; 0202U; 81003

== ENCOUNTER 2021-07-20 08:00 | Outpatient (CLI) | payer MEDICARE, OTHER ==
[2021-07-20 19:09] LABS: BILIRUBIN,URINE NEGATIVE (NEGATIVE); GLUCOSE, URINE (UA) 500 mg/dL (NEGATIVE); KETONES,URINE (UA) NEGATIVE (NEGATIVE); LEUKOCYTE ESTERASE, URINE MODERATE (NEGATIVE); NITRITE,URINE NEGATIVE (NEGATIVE); OCCULT BLOOD,URINE TRACE-INTA (NEGATIVE); PH,URINE 6.5 PH (5.0-7.5); PROTEIN,URINE TRACE mg/dL (NEGATIVE); UROBILINOGEN,URINE 4 E.U./dL (NORMAL)
[2021-07-20 19:10] LABS: CLARITY,URINE CLEAR (CLEAR)
[2021-07-20 19:12] LABS: BASOPHILS # (AUTO) 0.1 10^3/uL (0.0-0.1); BASOPHILS % (AUTO) 0.9 %; EOSINOPHILS # (AUTO) 0.5 10^3/uL (0.0-0.7); EOSINOPHILS % (AUTO) 6.8 %; HCT - HEMATOCRIT 31.3 % (42.0-52.0); HGB - HEMOGLOBIN 10.3 g/dL (14.0-18.0); LYMPHOCYTES # (AUTO) 1.1 10^3/uL (1.5-3.5); LYMPHOCYTES % (AUTO) 15.2 %; MEAN CORPUSCULAR HEMOGLOBIN 30.4 pg (27.0-31.0); MEAN CORPUSCULAR HGB CONC 32.9 g/dL (32.0-36.0); MEAN CORPUSCULAR VOLUME 92.3 fL (80.0-94.0); MEAN PLATELET VOLUME 10.8 fL (7.4-11.4); MONOCYTES # (AUTO) 0.6 10^3/uL (0.0-1.0); NEUTROPHILS # (AUTO) 4.8 10^3/uL (1.5-6.6); NEUTROPHILS % (AUTO) 68.8 %; PLT - PLATELET COUNT 208 10^3/uL (130-450); RED BLOOD COUNT 3.39 10^6/uL (4.70-6.10); RED CELL DISTRIBUTION WIDTH 19.1 % (12.0-15.0); WHITE BLOOD COUNT 6.9 x10^3/uL (4.8-10.8)
[2021-07-20 19:13] LABS: BACTERIA,URINE None Seen /HPF (None Seen); RBC,URINE 0-5 /HPF (0-5); SQUAMOUS EPITHELIAL CELL,UR RARE Squamous (<= Few); YEAST,URINE PRESENT
[2021-07-20 19:20] LABS: ALBUMIN 2.6 g/dL (3.2-5.5); ALBUMIN/GLOBULIN RATIO 0.7 (1.0-2.2); BILIRUBIN,TOTAL 1.4 mg/dL (0.2-1.0); CALCIUM 8.8 mg/dL (8.5-10.3); CREATININE 3.1 mg/dL (0.6-1.2); POTASSIUM 5.3 mmol/L (3.5-5.0); TOTAL PROTEIN 6.3 g/dL (6.7-8.2)
== END 2021-07-20 23:59 ==
LOC: LAB.R 08:00
PROVIDERS: ATTEND Family Medicine
DX: E11.22 Type 2 diabetes mellitus with diabetic chronic kidney disease (principal); N18.31 Chronic kidney disease, stage 3a; I50.42 Chronic combined systolic (congestive) and diastolic (congestive) heart failure
CPT/HCPCS: 80053; 81001; 81003; 85025; 87086

== ENCOUNTER 2021-07-20 14:08 | Outpatient (CLI) | payer MEDICARE, OTHER | END 2021-07-20 14:09 | disposition home or self-care (01) | LOC: LAB.R 14:08 | PROVIDERS: ATTEND Family Medicine | DX: Z53.9 Procedure and treatment not carried out, unspecified reason (principal) | CPT/HCPCS: 80053; 85025 ==

== ENCOUNTER 2021-07-26 13:05 | Outpatient (CLI) | payer MEDICARE, OTHER | END 2021-07-26 13:06 | disposition short-term general hospital (02) | LOC: EMS 13:05 | DX: R53.1 Weakness (principal); R05.9 Cough, unspecified; R09.89 Other specified symptoms and signs involving the circulatory and respiratory systems | CPT/HCPCS: A0425; A0429 ==